=== PATIENT | male | born 1985 | race Hispanic/Latino ===

== ENCOUNTER 2016-11-13 12:49 | Emergency (ER) | payer OTHER ==
[~2016-11-13] VITALS: Ht 160 cm; Wt 62.7 kg
[~2016-11-13 12:49] MED LIST: ACET325T51 PO; CLOT45CR7 EXTERNAL; METF500T4 PO
[2016-11-13 12:51] VITALS: BP 127/88; PULSE 119; RESP 18; O2SAT 100
--- NOTE | 2016-11-13 13:07 | ED.REPORT ---
HPI-Abd Pain M 40 and Over Date of Service Nov 13, 2016 ED Provider: Luis Carlos Andrade MD Patient is a 31 year old male who presents to the ED complaining of lower abdominal pain onset 3 weeks ago. Associated symptoms include dysuria and pelvic pain bilaterally. He denies fever, testicular pain, back pain, or any other symptoms. No hx of kidney stones. No alcohol for months. Nursing Notes Stated Complaint: POSS KIDNEY STONES Chief Complaint: Male Abdominal Pain Nursing Notes Reviewed: Yes Allergies: Coded Allergies: No Known Allergies (Verified Allergy, Unknown, 10/19/16) Scheduled Clotrimazole 1% (Gyne-Lotrimin 7 1%) 45 Gm Cream.appl 45 GM EXTERNAL TID Metformin (Metformin) 500 Mg Tablet 500 MG PO DAILY Scheduled PRN Acetaminophen (Acetaminophen) 325 Mg Tablet 325 MG PO Q4H PRN PRN For Fever Hydrocodone-Acetaminophen 5-325 mg (Hydrocodone-Acetaminophen 5-325 mg) 1 Each Tablet 1-2 TABLET PO Q4H PRN PRN For Pain General Time Seen by MD: 13:07 Chief Complaint Abdominal pain Hx Obtained From: Patient Arrived By: Walk-in Sudden in Onset?: Yes Onset Occurred: More than a week ago... (3 weeks) Recent Healthcare: Recent doctor visit Similar Sx Previous: Yes Risk Factors )( AAA Risk Stratification SmokingNo Hypertension Risk factors reviewed Past Medical History Past Medical History Hx of alcohol abuse Alcoholic liver disease Pancreatitis Reports: Diabetes mellitus Reports: Depression Past Surgical History 01/27/16: Procedure: Exploratory laparotomy, lysis of adhesions, drainage of intra-abdominal abscess, appendectomy, rigid proctoscopy, flexible sigmoidoscopy Surgeon: Neo Daniel M.D. hand wound repair Family History noncontributory Smoking History Current Some Day Smoker Social History Alcohol Use: Denies alcohol use Drug Use: Denies drug use, THC Other Social History: Local resident Ambulatory Status Independent Review of Systems +pelvic pain Constitutional: Denies: Fever Male: Reports Dysuria, Denies Testicular pain Musculoskeletal: Denies: Back pain Complete sys rev & neg: except as marked. Physical Exam Initial Vital Signs Vital Signs (First) Date Time Temp Pulse Resp B/P Pulse Ox O2 Delivery O2 Flow Rate FiO2 11/13/16 12:51 36.2 119 18 127/88 100 Room Air Initial VS: Reviewed Head / Eyes: Atraumatic, Normocephalic Skin: Warm, Dry Neurologic: Alert, Oriented, Nonfocal Psychiatric: Mood/affect normal, Behavior normal, Normal thought content General/Constitutional: Awake, Alert, Well appearing, Well developed Distress / Hydration: Positive: Distress mild Respiratory / Chest: Breath sounds NL, No respiratory distress Cardiovascular: Heart rate NL, Regular rhythm, Heart sounds NL Abdomen: No guarding, BS normoactive Diffuse mild distention and tenderness Back: Inspection NL, Non-tender Interpretation & Diagnostics Lab Results Interpretation Result Diagram: 11/13/16 1325 11/13/16 1325 Test 11/13/16 13:25 11/13/16 13:38 White Blood Count 5.5th/mm3 (3.8-10.1) Red Blood Count 5.16mil/mm3 (4.40-5.80) Hemoglobin 14.5g/dL (13.8-17.2) Hematocrit 41.4% (41.0-50.0) Mean Corpuscular Volume 80.2fL (81-100) Mean Corpuscular Hemoglobin 28.1pg (27.0-35.0) Mean Corpuscular Hemoglobin Concent 35.0% (32.0-37.0) Red Cell Distribution Width 12.6% (12.3-15.4) Platelet Count 190bil/L (150-400) Neutrophils (%) (Auto) 57.1% (40-74) Lymphocytes (%) (Auto) 34.1% (14-46) Monocytes (%) (Auto) 6.6% (4-12) Eosinophils (%) (Auto) 1.6% (0-5) Basophils (%) (Auto) 0.4% (0-3) Prothrombin Time 10.3sec (8.1-12.5) Prothromb Time International Ratio 0.96ratio Sodium Level 131mEq/L (134-144) Potassium Level 3.8mEq/L (3.5-5.2) Chloride Level 94mEq/L (97-108) Carbon Dioxide Level 23mmol/L (18-29) Blood Urea Nitrogen 12mg/dL (6-20) Creatinine 0.66mg/dL (0.76-1.27) Estimat Glomerular Filtration Rate 152mL/min (>59) Glucose Level 394mg/dL (60-99) Calcium Level 9.7mg/dL (8.5-10.1) Magnesium Level 1.7mg/dL (1.6-2.6) Total Bilirubin 0.8mg/dL (0.0-1.2) Aspartate Amino Transf (AST/SGOT) 17U/L (0-50) Alanine Aminotransferase (ALT/SGPT) 20U/L (0-44) Alkaline Phosphatase 137U/L (25-150) Total Protein 8.1g/dL (6.4-8.4) Albumin 4.4g/dL (3.4-5.0) Lipase 20U/L (13-60) Hold Sommers Top Tube Received (Received) Urine Color Yellow (YELLOW) Urine Appearance Clear (CLEAR,HAZY) Urine pH 6.0 (5.0-8.0) Urine Specific [place] 1.015 (1.003-1.035) Urine Protein 30mg/dL (NEG,TRACE) Urine Glucose (UA) 1000mg/dL (NEGATIVE) Urine Ketones Negativemg/dL (NEGATIVE) Urine Occult Blood Trace (NEGATIVE) Urine Nitrite Negative (NEGATIVE) Urine Bilirubin Negative (NEGATIVE) Urine Urobilinogen Normalmg/dL (NORMAL) Urine Leukocyte Esterase Negative (NEGATIVE) Urine RBC 0-2/hpf (0-2) Urine WBC 0-5/hpf (0-5) Urine Epithelial Cells Occasional/hpf (NONE-MOD) Urine Crystals None seen (NONE SEEN) Urine Bacteria Few/hpf (NONE-FEW) Urine Hyaline Casts None/lpf (NONE) Urine Granular Casts None seen (NONE SEEN) Urine Waxy Casts None seen (NONE SEEN) Urine Red Blood Cell Casts None seen (NONE SEEN) Urine White Blood Cell Casts None seen (NONE SEEN) Urine Mucus None seen (None Seen) Urine Trichomonas None seen (NONE SEEN) Urine Yeast None (NONE SEEN) Urinalysis Comment None Urine Culture Reflexed Not indicated Re-Eval/Medical Decision Time of Eval: 15:01 )( Re-Eval Abdomen: BS normoactive Re-Evaluation/Progress Note: Discussed imaging results and plan for discharge with close followup. Patient understands and agrees with plan. All questions addressed at this time. Consultation : Referral / Consult Name: uBbba Torres MD Consulted With: Surgeon Call Returned at: 15:09 Note: Recommends follow-up at [facility] gastroenterology for endoscopic drainage of this large cyst. He says that his office will arrange that follow-up. Counseled Regarding: Diagnosis, Lab results, Need for follow-up, When/why to return to ED Discharge & Departure Primary Impression: Pancreatic pseudocyst Disposition: Home Vital Signs - All Vital Signs Date Time Temp Pulse Resp B/P Pulse Ox O2 Delivery O2 Flow Rate FiO2 11/13/16 15:25 36.6 85 16 120/66 100 Room Air 11/13/16 12:51 36.2 119 18 127/88 100 Room Air )( All Prior VS Reviewed: Yes Condition: Stable Patient Instructions: Acute Abdominal Pain (ED) Additional Instructions: Your abdominal pain is almost certainly caused by the pancreatic pseudocyst evident on the CT scan. This is a sequela of the severe pancreatitis you had last fall. According to the local surgeon, Dr. Chano Torres, endoscopic drainage by gastroenterology is the treatment for a symptomatic pseudocyst like yours. You should expect a phone call from Dr. Torres's clinic today or tomorrow with the details of follow-up at [facility]. If you have not heard from them by noon tomorrow, call back to the ED so we can help with this. Referrals: Gertrudis August DO (PCP) Scribe Attestation Portions of this note were transcribed by Tamra Mcbride. I, Dr. Andrade personally performed the history, physical exam and medical decision-making; I reviewed and confirmed the accuracy of the information in the transcribed note. Signed by: Tamra Mcbride 11/13/16, [id number] copies to: Gertrudis August Kirk H MD Nov 13, 2016 13:07 TAMRA MCBRIDE Nov 13, 2016 13:20
[2016-11-13] MEDS ORDERED: 0.9% Sodium Chloride 1,000 ML IV ONE (13:15)
[2016-11-13] MEDS: Ondansetron 2 mg/mL 2 mL Inj IVPUSH PRN ×2 (13:31→13:32)
[2016-11-13 13:34] LABS: BASOPHILS % (AUTO) 0.4 % (0-3); EOSINOPHILS % (AUTO) 1.6 % (0-5); MONOCYTES % (AUTO) 6.6 % (4-12); Mean Corpuscular Hemoglobin 28.1 pg (27.0-35.0); Mean Corpuscular Volume 80.2 fL (81-100); NEUTROPHILS % (AUTO) 57.1 % (40-74); Platelet Count 190 bil/L (150-400)
[2016-11-13 13:51] LABS: INR 0.96 ratio
[2016-11-13 13:58] LABS: Magnesium 1.7 mg/dL (1.6-2.6)
[2016-11-13 14:23] LABS: APPEARANCE,URINE CLEAR (CLEAR,HAZY); COLOR,URINE YELLOW (YELLOW); OCCULT BLOOD,URINE TRACE (NEGATIVE); UROBILINOGEN,URINE NORMAL (NORMAL)
--- NOTE | 2016-11-13 14:59 | DRSVH ---
PROCEDURE: CT ABDOMEN AND PELVIS WITH CONTRAST (PNL-7102) INDICATIONS: abd pain TECHNIQUE: After the administration of intravenous contrast, 5 mm thick sections acquired from the diaphragm to the symphysis. 5 mm coronal and sagittal reformats were acquired. For radiation dose reduction, the following was used: automated exposure control, adjustment of mA and/or kV according to patient sasha fuller. COMPARISON: [facility], CT, CT ABD PELVIS W CON, 09/10/2016, 16:51. FINDINGS: Image quality: Excellent. ABDOMEN: Lung bases: Lung bases are clear. Heart size is normal. Solid organs: Liver and spleen are normal in size and enhancement. Diffuse fatty infiltration of the liver is noted. Gallbladder is within normal limits. Biliary system is non dilated. Small area of f ocal atrophy is noted in the tail of the pancreas compatible with an area of necrosis which is old in the interval since prior study obtained 09/10/2016. There is a large, multiloculated, peripancreatic walled off fluid collection which is not significantly changed in size and contour compared to prior CT scan obtained 09/10/2016. Lesion continues to have marked mass effect on adjacent structures. No a drenal nodules. Kidneys demonstrate normal size and enhancement, without hydronephrosis. Peritoneum and bowel: Bowel loops demonstrate normal wall thickness and caliber. Scattered diverticu li noted in the sigmoid colon. No free fluid or air. Appendix is absent. Nodes and vessels: No retroperitoneal or mesenteric adenopathy by size criteria. Aorta and inferior vena cava are normal in size. Portal vein and splenic vein demonstrate normal postcontrast enhanceme nt. Superior mesenteric vein as normal enhancement. Miscellaneous: No ventral hernias. PELVIS: Genitourinary: Urinary bladder wall is thickened to 1.2 cm. Miscellaneous: No inguinal hernias or adenopathy. Small fluid collection with enhancing periphery id entified by prior CT scan obtained 09/10/16 is almost completely resolved measuring approximately 1.3 cm diameter currently (3.2 x 2.3 cm previously) cc. Bones: No suspicious bony lesions. No vertebral body compression fractures. IMPRESSION: 1. Multiloculated peripancreatic fluid collection with imaging characteristics most compatible with a pancreatic pseudocyst, however infected fluid collection cannot be completely excluded by imaging al one. 2. Small peripherally enhancing fluid collection in the midline of the lower pelvis superior to the d ome of the urinary bladder is decreased in size measuring approximately 1.2 cm in diameter compatible with resolving abscess. 3. Diffuse urinary bladder wall thickening with nonspecific cystitis. Please correlate with clinical and urinalysis data. 4. Small area of necrosis following the tail of the pancreas. 5. Hepatic steatosis. 6. Colonic diverticulosis. Dictated by: Thao Lawler MD, PhD on 11/13/2016 at 14:57 Approved by: Thao Lawler MD, PhD on 11/13/2016 at 14:57
[2016-11-13] MEDS ORDERED: HYDR-4003 PO (15:13)
[2016-11-13 15:25] VITALS: BP 120/66; PULSE 85; RESP 16; O2SAT 100
== END 2016-11-13 15:27 | disposition home or self-care (01) ==
LOC: SED 12:49
DX: K86.3 Pseudocyst of pancreas (principal); E11.9 Type 2 diabetes mellitus without complications; F17.200 Nicotine dependence, unspecified, uncomplicated; Z79.84 Long term (current) use of oral hypoglycemic drugs
CPT/HCPCS: 36415; 74177; 80053; 81000; 83690; 83735; 85025; 85610; 96361; 96374; 96375; 99285; J2405; J7030; Q9967

== ENCOUNTER 2016-12-06 16:32 | Inpatient (IN) | payer OTHER ==
[~2016-12-06] VITALS: Ht 160 cm; Wt 59.6 kg
[~2016-12-06 16:32] MED LIST changes: +HYDR-4003 PO
[2016-12-06 16:39] VITALS: BP 108/68; PULSE 133; RESP 16; O2SAT 95
[2016-12-06] MEDS ORDERED: 0.9% Sodium Chloride 1,000 ML IV ONE ×2 (16:56→20:40)
[2016-12-06] MEDS ORDERED: Piperacillin-Tazo 3.375 Gm Inj 3.375 GM in Dextrose 5% Minibag Plus 50 ML IV ONE (17:00)
--- NOTE | 2016-12-06 17:20 | ED.REPORT ---
HPI-Abd Pain M Under 40 Date of Service Dec 06, 2016 ED Provider: Luis Carlos Andrade MD A 31 year old male with a history of of alcohol liver disease, pancreatitis, depression and diabetes presents to the ED complaining of a fever that began 3 days ago. Associated symptoms include vomiting, abdominal pain and diarrhea. Patient has seen 11/13 from a pancreatic pseudocyst. He was recently seen at [facility] gastroenterology for endoscopic drainage of his cyst. Patient reports that the drainage "smells sweet". He denies cough. Nursing Notes Stated Complaint: ABDOMINAL PAIN Chief Complaint: FLU/Cold Symptoms Nursing Notes Reviewed: Yes Allergies: Coded Allergies: No Known Allergies (Verified Allergy, Unknown, 10/19/16) Scheduled Clotrimazole 1% (Gyne-Lotrimin 7 1%) 45 Gm Cream.appl 45 GM EXTERNAL TID Metformin (Metformin) 500 Mg Tablet 500 MG PO DAILY Scheduled PRN Acetaminophen (Acetaminophen) 325 Mg Tablet 325 MG PO Q4H PRN PRN For Fever Hydrocodone-Acetaminophen 5-325 mg (Hydrocodone-Acetaminophen 5-325 mg) 1 Each Tablet 1-2 TABLET PO Q4H PRN PRN For Pain General Time Seen by MD: 16:55 Chief Complaint Other (Fever) Hx Obtained From: Patient Arrived By: Walk-in Sudden in Onset?: No Onset Occurred: 3 days ago Symptom Duration: Since onset Progression since Onset: Unchanged Location: : Abdomen lower Quality: Painful Radiation: : Does not radiate Severity: Current: Mild Severity: Maximum: Mild Associated with: Reports: Diarrhea, Fever, Vomiting Pertinent Negative: Pt denies other symptoms Recent Healthcare: Recent doctor visit, Recent hospitalization Past Medical History Past Medical History Hx of alcohol abuse Alcoholic liver disease Pancreatitis Reports: Diabetes mellitus Reports: Depression Past Surgical History 1) 01/27/16: Procedure: Exploratory laparotomy, lysis of adhesions, drainage of intra-abdominal abscess, appendectomy, rigid proctoscopy, flexible sigmoidoscopy Surgeon: Neo Daniel M.D. 2) Endoscopic drainage of his pancreatic psuedocyst at [facility] R hand wound repair Family History noncontributory Smoking History Current Some Day Smoker Social History Alcohol Use: Denies alcohol use Drug Use: Denies drug use, THC Other Social History: Good social support, Local resident Ambulatory Status Independent Review of Systems Constitutional: Reports: Chills, Fever Respiratory: Denies: Non-productive cough, Shortness of breath Cardiovascular: Denies: Chest pain GI: Reports: Abdominal pain, Diarrhea, Nausea, Vomiting Complete sys rev & neg: except as marked. Neurologic: Denies: Change LOC Physical Exam Initial Vital Signs Vital Signs (First) Date Time Temp Pulse Resp B/P Pulse Ox O2 Delivery O2 Flow Rate FiO2 12/06/16 16:39 38.6 133 16 108/68 95 Room Air Initial VS: Reviewed Head / Eyes: Atraumatic, Normocephalic, PERRL Extremities: Vascular intact, Neuro intact, No swelling, No tenderness Skin: Warm, Dry, No cyanosis Neurologic: Alert, Oriented, Nonfocal Psychiatric: Mood/affect normal, Behavior normal, Normal thought content General/Constitutional: Awake, Alert GENERAL: Patient is febrile upin initial examination (38.6 C) Respiratory / Chest: Atraumatic, Breath sounds NL, Breath sounds = bilat Cardiovascular: Regular rhythm, Heart sounds NL Heart Rate / Rhythm: Positive: Tachycardia Abdomen: Atraumatic, Soft ABDOMEN: Drain in place at the patient's rigth flank Back: Atraumatic, Inspection NL Interpretation & Diagnostics Lab Results Interpretation Result Diagram: 12/06/16 1710 12/06/16 1710 Test 12/06/16 17:10 12/06/16 19:20 White Blood Count 7.8th/mm3 (3.8-10.1) Red Blood Count 4.85mil/mm3 (4.40-5.80) Hemoglobin 13.5g/dL (13.8-17.2) Hematocrit 39.3% (41.0-50.0) Mean Corpuscular Volume 81.0fL (81-100) Mean Corpuscular Hemoglobin 27.8pg (27.0-35.0) Mean Corpuscular Hemoglobin Concent 34.4% (32.0-37.0) Red Cell Distribution Width 12.3% (12.3-15.4) Platelet Count 132bil/L (150-400) Neutrophils (%) (Auto) 67.9% (40-74) Lymphocytes (%) (Auto) 14.9% (14-46) Monocytes (%) (Auto) 16.5% (4-12) Eosinophils (%) (Auto) 0.3% (0-5) Basophils (%) (Auto) 0.1% (0-3) Prothrombin Time 11.8sec (8.1-12.5) Prothromb Time International Ratio 1.10ratio Sodium Level 130mEq/L (134-144) Potassium Level 3.5mEq/L (3.5-5.2) Chloride Level 91mEq/L (97-108) Carbon Dioxide Level 22mmol/L (18-29) Blood Urea Nitrogen 10mg/dL (6-20) Creatinine 0.68mg/dL (0.76-1.27) Estimat Glomerular Filtration Rate 147mL/min (>59) Glucose Level 231mg/dL (60-99) Lactic Acid Level 1.6mmol/L (0.4-2.0) Calcium Level 10.0mg/dL (8.5-10.1) Phosphorus Level 4.2mg/dL (2.5-4.9) Magnesium Level 1.3mg/dL (1.6-2.6) Total Bilirubin 1.4mg/dL (0.0-1.2) Aspartate Amino Transf (AST/SGOT) 11U/L (0-50) Alanine Aminotransferase (ALT/SGPT) 16U/L (0-44) Alkaline Phosphatase 106U/L (25-150) Troponin T < 0.010ug/L (0.0-0.011) Total Protein 7.7g/dL (6.4-8.4) Albumin 4.2g/dL (3.4-5.0) Lipase 19U/L (13-60) Urine Color Yellow (YELLOW) Urine Appearance Clear (CLEAR,HAZY) Urine pH 7.0 (5.0-8.0) Urine Specific [place] 1.025 (1.003-1.035) Urine Protein Tracemg/dL (NEG,TRACE) Urine Glucose (UA) 1000mg/dL (NEGATIVE) Urine Ketones 40mg/dL (NEGATIVE) Urine Occult Blood Trace (NEGATIVE) Urine Nitrite Negative (NEGATIVE) Urine Bilirubin Negative (NEGATIVE) Urine Urobilinogen Normalmg/dL (NORMAL) Urine Leukocyte Esterase Trace (NEGATIVE) Urine RBC 0-2/hpf (0-2) Urine WBC 0-5/hpf (0-5) Urine Epithelial Cells None/hpf (NONE-MOD) Urine Crystals None seen (NONE SEEN) Urine Bacteria Few/hpf (NONE-FEW) Urine Hyaline Casts None/lpf (NONE) Urine Granular Casts None seen (NONE SEEN) Urine Waxy Casts None seen (NONE SEEN) Urine Red Blood Cell Casts None seen (NONE SEEN) Urine White Blood Cell Casts None seen (NONE SEEN) Urine Mucus Present (None Seen) Urine Trichomonas None seen (NONE SEEN) Urine Yeast None (NONE SEEN) Urinalysis Comment None Urine Culture Reflexed Indicated CT Abd / Pelvis Interpretation IMPRESSION: 1. Status post placement of percutaneous catheter and transgastric stent in large multiloculated pancreatic pseudocyst. Air locules are scattered throughout the pseudocyst which could be related to catheter stent placement versus infection with gas-forming organism. Recommend sampling of cystic fluid via the percutaneous catheter. 2. Small abscess in the midline of lower pelvis continues to decrease in size measuring approximately 1 cm in diameter in the current study. 3. Interval resolution of diffuse urinary bladder wall thickening. 4. Hepatic steatosis. 5. Colonic diverticulosis without evidence of diverticulitis. 6. Findings telephoned to Dr. Luis Carlos Andrade on 12/06/2016 at 1855 hrs. Dictated by: Thao Lawler MD, PhD on 12/06/2016 at 18:41 Study type: Abdominal CT IV contrast, Abdom CT oral contrast Interpretation / Wet Read by: Interpret - Radiologist Re-Eval/Medical Decision Re-Evaluation/Progress #1: Time of Eval: 17:57 Patient Status: Condition improved Re-Evaluation/Progress Note: Patient is rechecked. He is informed of his lab results and CT results. All current questions are addressed. Re-Evaluation/Progress #2: Time of Eval: 19:46 Patient Status: Condition improved Re-Evaluation/Progress Note: Patient is rechecked. He reports that his pain is still present. Pateint is informed of the consult and he is given the option to admit or discharge. He is requesting to be admitted. Consultation #1: Referral / Consult Name: Wayne Linares MD Consulted With: Surgeon Call Returned at: 18:59 Lead Case Manager: Agrees with eval, Agrees with plan Note: Recommends contacting [facility] Consultation #2: Referral / Consult Name: [facility] Call Returned at: 19:28 Lead Case Manager: Agrees with eval, Agrees with plan Note: Dr. [facility] He recommends either inpatient or outpatient antibiotics after cultures. He said the patient's preference would dictate which venue would be the location of antibiotic administration Consultation #3: Referral / Consult Name: Claudia Potts DO Consulted With: Hospitalist Call Returned at: 20:14 Lead Case Manager: Will see patient, Agrees with eval, Agrees with plan, Accepts admit Counseled Regarding: Diagnosis, Lab results, Need for admission Patient Discharge & Departure Primary Impression: Pancreatic pseudocyst Disposition: ADMITTED TO HOSPITAL Discharge Condition All VS Reviewed: Yes Condition: Stable Referrals: Gertrudis August DO (PCP) Roryibalina Attestation Portions of this note were transcribed by Tony Cuello. I, Dr. Andrade personally performed the history, physical exam and medical decision-making; I reviewed and confirmed the accuracy of the information in the transcribed note. Signed by: Keisha Gonzales, 12/06/162019. copies to: Gertrudis August Kirk H MD Dec 06, 2016 17:20 TONY CUELLO Dec 06, 2016 17:58
[2016-12-06 17:26] LABS: BASOPHILS % (AUTO) 0.1 % (0-3); EOSINOPHILS % (AUTO) 0.3 % (0-5); MONOCYTES % (AUTO) 16.5 % (4-12); Mean Corpuscular Hemoglobin 27.8 pg (27.0-35.0); NEUTROPHILS % (AUTO) 67.9 % (40-74); Platelet Count 132 bil/L (150-400)
[2016-12-06] MEDS: HYDROmorphone 1 mg/mL Inj IVPUSH PRN ×2 (17:27→19:19)
[2016-12-06] MEDS: Ondansetron 2 mg/mL 2 mL Inj IVPUSH PRN ×2 (17:27→19:19)
[2016-12-06 17:52] LABS: INR 1.1 ratio
[2016-12-06 18:05] LABS: Lipase 19 U/L (13-60); Magnesium 1.3 mg/dL (1.6-2.6); Phosphorus 4.2 mg/dL (2.5-4.9)
[2016-12-06 18:12] LABS: TROPONIN T < 0.010 ug/L (0.0-0.011)
--- NOTE | 2016-12-06 18:56 | DRSVH ---
PROCEDURE: CT ABDOMEN AND PELVIS WITH CONTRAST (PNL-7102) INDICATIONS: abd pain, fever, recent surgery TECHNIQUE: After the administration of intravenous contrast, 5 mm thick sections acquired from the diaphragm to the symphysis. 5 mm coronal and sagittal reformats were acquired. For radiation dose reduction, the following was used: automated exposure control, adjustment of mA and/or kV according to patient siz e. COMPARISON: [facility], CT, CT ABD PELVIS W CON, 01/22/2016, 12:29. [facility] al, CT, CT ABD PELVIS W CON, 11/13/2016, 14:37. [facility], CT, CT ABD PELVIS W CON, 07/2016, 16:51. [facility], CT, CT ABD PELVIS W CON, 08/05/2016, 0:00. [facility], CT, CT ABD PELVIS W CON, 02/16/2016, 10:00. [facility], CT, CT ABD PELVIS W CON, , 16:23. FINDINGS: Image quality: Excellent. ABDOMEN: Lung bases: Atelectasis is noted in the lung bases bilaterally. Heart size is normal. Solid organs: Liver and spleen are normal in size and enhancement. Diffuse fatty infiltration the li leesa is noted. Gallbladder is within normal limits. Biliary system is non dilated. Large multiloculat ed pancreatic pseudocyst is redemonstrated. Right flank percutaneous pigtail drain is in placed in t he pancreatic pseudocyst. A stent has been placed in the stomach and adjacent pancreatic pseudocyst. Scattered air locules noted in the pseudocyst which could be related to catheter/stent versus infec tion. Necrosis involving the pancreatic tail is stable compared to the prior examination. Pseudocys t in the pancreatic tail is stable compared to the prior exam. No adrenal nodules. Kidneys demonstr ate normal size and enhancement, without hydronephrosis. Peritoneum and bowel: Bowel loops demonstrate normal wall thickness and caliber. No free fluid or a ir. Scattered diverticuli noted in the colon without evidence of diverticulitis. The appendix is abs ent. Nodes and vessels: No retroperitoneal or mesenteric adenopathy by size criteria. Aorta and inferior vena cava are normal in size. Miscellaneous: No ventral hernias. PELVIS: Genitourinary: Bladder wall thickness is normal. Miscellaneous: No inguinal hernias or adenopathy. Small fluid collection with enhancing periphery in the midline of the pelvis continues to decrease in size measuring approximately 1.0 cm in diameter. Bones: No suspicious bony lesions. No vertebral body compression fractures. IMPRESSION: 1. Status post placement of percutaneous catheter and transgastric stent in large multiloculated you creatic pseudocyst. Air locules are scattered throughout the pseudocyst which could be related to ca theter stent placement versus infection with gas-forming organism. Recommend sampling of cystic flui d via the percutaneous catheter. 2. Small abscess in the midline of lower pelvis continues to decrease in size measuring approximatel y 1 cm in diameter in the current study. 3. Interval resolution of diffuse urinary bladder wall thickening. 4. Hepatic steatosis. 5. Colonic diverticulosis without evidence of diverticulitis. 6. Findings telephoned to Dr. Luis Carlos Andrade on 12/06/2016 at 1855 hrs. Dictated by: Thao Lawler MD, PhD on 12/06/2016 at 18:41 Approved by: Thao Lawler MD, PhD on 12/06/2016 at 18:55
[2016-12-06 19:18] VITALS: BP 100/55; PULSE 109; RESP 13; O2SAT 95
[2016-12-06 19:58] LABS: APPEARANCE,URINE CLEAR (CLEAR,HAZY); COLOR,URINE YELLOW (YELLOW); OCCULT BLOOD,URINE TRACE (NEGATIVE); UROBILINOGEN,URINE NORMAL (NORMAL)
[2016-12-06] MEDS ORDERED: Polyethylene Glycol (PEG) 17 Gm Powder PO PRN (20:20)
[2016-12-06] MEDS ORDERED: Alum-Mag Hydrox-Simeth 30 mL Suspension PO PRN (20:20)
[2016-12-06] MEDS ORDERED: Ondansetron 2 mg/mL 2 mL Inj IVPUSH PRN (20:20)
--- NOTE | 2016-12-06 20:24 | PCM.HPMED ---
Subjective Date of Service Dec 06, 2016 Primary Provider: Admitting Physician: Primary Care Physician: Gertrudis August DO Attending Physician: Admit Status: From the Emergency Department Chief Complaint: abdominal pain History of Present Illness: 31yoM with past medical history of daily alcohol consumption, pancreatitis 2/2 ETOH and hypertriglyceridemia s/p plasma exchange with course complicated by subsequent walled of pancreatic necrosis (WOPN) now s/p drainage admitted with worsening abdominal pain and fever 1 day following drainage procedure at [facility]. Patient states that following pancreatitis in 08/2016 he began having worsening abdominal pain at which time he was seen at [facility] and found to have a large pancreatic pseudocyst / WOPN. Drainage of WOPN was completed at [facility] with what is described as dual modality drainage by patient and ED physician. Records not available on admission. He was discharged on 12/05/2016 and felt improved until the morning of 12/06/2016 at which time he began having worsening 7 /10 persistent abdominal pain with radiation throughout mid abdomen, subjective fevers, and mild rigors. In addition he notes decreased PO intake. As per direction Mr. Remy came to [facility] ED for further evaluation. At this time patient endorses the above complaints in addition to mild headache and nausea. He denies chest pain, dyspnea, lightheadedness, dizziness, changes in vision or hearing, urination, changes in bowel movements. His transcutaneous drain has been putting out dark moe fluid. 100cc taken from bag upon arrival. Vitals on presentation T38.6, RR16, BP 108/68, HR 133, 95% on RA. WBC 7.8 with 16.5% monos, sodium 130, mag 1.3, tbili 1.4. Review of Systems: complete review of system obtained. positive as per HPI otherwise negative. Allergies Coded Allergies: No Known Allergies (Verified Allergy, Unknown, 10/19/16) Home Medications No current medications as per patient. PMH Hx of alcohol abuse Alcoholic liver disease Intraabdominal abscess Torn MCL Peripheral neuropathy a/w trauma Hypertriglyceridemia Pancreatic pseudocyst / WOPN s/p dual modality drainage Surgical History 01/27/16: Procedure: Exploratory laparotomy, lysis of adhesions, drainage of intra-abdominal abscess, appendectomy, rigid proctoscopy, flexible sigmoidoscopy Surgeon: Neo Daniel M.D. 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 Chest & Lungs: clear to auscultation, no wheezes, rhonchi, rales Cardiovascular: Normal S1, Normal S2, No Murmurs/Rubs/Gallops, Tachy/ Regular Rhythm, Other (No JVD, no peripheral edema) Pulses: Radial (present and equal), Dorsalis Pedi (present and equal) Abdomen: Soft, diffusely tender, Non-distended, Normoactive bowel tones. Musculoskeletal: No erythema / edema joints Extremities: no edema, no cyanosis, no clubbing. Skin: No rashes. Warm and dry, no erythematous areas Neurological: Grossly neurologically intact, has generalized weakness, Normal Speech, Sensation Intact Lymphatic: Lymph nodes Cervical and Axillary not palpable. psych: normal affect, good eye contact, questions answered appropriately Lab and Diagnostics Result Diagram: 12/06/16170912/06/161709 X-Rays, CTs and MRIs Patient Name: HOWIE REMY MR#: [id number] Location: [facility] [place] Ordering Phys: Luis Carlos Andrade MD Date of Service: 12/06/161655 PROCEDURE: CT ABDOMEN AND PELVIS WITH CONTRAST ([id number]) INDICATIONS: abd pain, fever, recent surgery TECHNIQUE: After the administration of intravenous contrast, 5 mm thick sections acquired from the diaphragm to the symphysis. 5 mm coronal and sagittal reformats were acquired. For radiation dose reduction, the following was used: automated exposure control, adjustment of mA and/or kV according to patient size. COMPARISON: [facility], CT, CT ABD PELVIS W CON, 01/22/2016, 12:29. [facility], CT, CT ABD PELVIS W CON, 11/13/2016, 14:37. [facility], CT, CT ABD PELVIS W CON, 09/10/2016, 16:51. [facility], CT, CT ABD PELVIS W CON, 08/05/2016, 0:00. [facility], CT , CT ABD PELVIS W CON, 02/16/2016, 10:00. [facility], CT, CT ABD PELVIS W CON, 01/26/2016, 16:23. FINDINGS: Image quality: Excellent. ABDOMEN: Lung bases: Atelectasis is noted in the lung bases bilaterally. Heart size is normal. Solid organs: Liver and spleen are normal in size and enhancement. Diffuse fatty infiltration the liver is noted. Gallbladder is within normal limits. Biliary system is non dilated. Large multiloculated pancreatic pseudocyst is redemonstrated. Right flank percutaneous pigtail drain is in placed in the pancreatic pseudocyst. A stent has been placed in the stomach and adjacent pancreatic pseudocyst. Scattered air locules noted in the pseudocyst which could be related to catheter/stent versus infection. Necrosis involving the pancreatic tail is stable compared to the prior examination. Pseudocyst in the pancreatic tail is stable compared to the prior exam. No adrenal nodules. Kidneys demonstrate normal size and enhancement, without hydronephrosis. Peritoneum and bowel: Bowel loops demonstrate normal wall thickness and caliber. No free fluid or air. Scattered diverticuli noted in the colon without evidence of diverticulitis. The appendix is absent. Nodes and vessels: No retroperitoneal or mesenteric adenopathy by size criteria. Aorta and inferior vena cava are normal in size. Miscellaneous: No ventral hernias. PELVIS: Genitourinary: Bladder wall thickness is normal. Miscellaneous: No inguinal hernias or adenopathy. Small fluid collection with enhancing periphery in the midline of the pelvis continues to decrease in size measuring approximately 1.0 cm in diameter. Bones: No suspicious bony lesions. No vertebral body compression fractures. IMPRESSION: 1. Status post placement of percutaneous catheter and transgastric stent in large multiloculated pancreatic pseudocyst. Air locules are scattered throughout the pseudocyst which could be related to catheter stent placement versus infection with gas-forming organism. Recommend sampling of cystic fluid via the percutaneous catheter. 2. Small abscess in the midline of lower pelvis continues to decrease in size measuring approximately 1 cm in diameter in the current study. 3. Interval resolution of diffuse urinary bladder wall thickening. 4. Hepatic steatosis. 5. Colonic diverticulosis without evidence of diverticulitis. 6. Findings telephoned to Dr. Luis Carlos Andrade on 12/06/2016 at 1855 hrs. Dictated by: Thao Lawler MD, PhD on 12/06/2016 at 18:41 Approved by: Thao Lawler MD, PhD on 12/06/2016 at 18:55 Assessment & Plan 31yoM with past medical history of daily alcohol consumption (last drink 2015), pancreatitis 2/2 ETOH and hypertriglyceridemia s/p plasma exchange with course complicated by walled of pancreatic necrosis (WOPN) now s/p drainage admitted with worsening abdominal pain and fever 1 day following drainage procedure at [facility]. SIRS, acute, POA -temp >38, HR >90 -most likely associated with pancreatic pseudocyst drain placement and recent hospitalization however continued workup at this time for infection -treatment as below Pancreatic pseudocyst, chronic, POA -recent endoscopic / surgical drain placement at 12/2016, discharge 1 day prior to admission -ED discussed case with Dr. Salmon (GI) at [facility], may transfer if patient clinically worsens -will continue piperacillin / tazobactam at this time -follow up drain cultures and blood cultures -AM team to contact ID for consult -records have been requested, pending Abdominal pain, acute, POA -seconary to DMD procedure at -lipase WNL Thrombocytopenia, acute, POA -mild thrombocytopenia noted on admit labs -found only one time previously on admission -continue to monitor especially with current abx and DVT prophylaxis Monocytosis, acute, POA -new monocytosis noted on admit labs -nonspecific finding in the setting of normal WBC -continue to monitor Elevated glucose, acute, POA -no history of diabetes however pancreatic pathology -low correction SSI ordered -HgbA1c pending Hypomagnesemia, acute, POA -monitor -replete PRN Elevated bilirubin, acute, POA -no documented history of isolated elevation of bilirubin -continue to monitor -may consider further workup as outpatient Hyponatremia, acute, POA -mild hyponatremia on admission at 130 -much lower during previous admission -potentially a/w hypovolemia given presentation -continue to monitor History of ETOH abuse, chronic -extended history of ETOH dependence, total 2.5 years sober, h/o DTs no withdrawal seizure -last drink 08/05/2016 Pain Evaluation: Adequate Pain Control GI Prophylaxis: Proton Pump Inhibitor VTE Prophylaxis: Sub-Q Heparin (Unfractionated) Resuscitation Status: CPR: Attempt Resuscitation Claudia Potts DO Dec 06, 2016 20:24
--- NOTE | 2016-12-06 20:30 | NUR ---
Admission note Admission assessment and screening completed. Pt denies taking any meds at this time including Metformin.
[2016-12-06] MEDS ORDERED: Glucose 40% Oral Gel 15 Gm Tube PO PRN (20:35)
[2016-12-06] MEDS ORDERED: Magnesium Sulf 2 Gm/50mL Water 2 GM in IV Premix 1 EACH IV ONE (20:40)
[2016-12-06 20:44] VITALS: BP 100/55; PULSE 109; RESP 14; O2SAT 96
[2016-12-06 21:07] VITALS: BP 105/64; PULSE 91; RESP 18; O2SAT 96
--- NOTE | 2016-12-06 21:39 | NUR ---
med rec patient reports "i dont take any medications."
[2016-12-06] MEDS ORDERED: HYDROmorphone 1 mg/mL Inj IVPUSH PRN (21:55)
[2016-12-06] MEDS: 0.9% Sodium Chloride 1,000 ML IV SCH (22:00)
--- NOTE | 2016-12-06 22:03 | NUR ---
pain patient complains of pain to abdomen. rates 7. requests pain medication notified Dr Delroy Potts to room. / bedside. await orders.
[2016-12-06] MEDS ORDERED: 0.9% Sodium Chloride 100 ML ONE (23:56)
[2016-12-07] VITALS (9 sets, daily range): BP systolic 99–107; BP diastolic 53–73; PULSE 79–117; RESP 18–22; O2SAT 95–98
[2016-12-07] MEDS: Insulin LISPRO 300 Unit/3 mL Inj SUBQ SCH ×5 (00:04→20:53)
[2016-12-07] MEDS: Heparin 5,000 Unit/mL Inj SUBQ SCH ×3 (00:04→17:30)
[2016-12-07] MEDS: Piperacillin-Tazo 3.375 Gm Inj 3.375 GM in Dextrose 5% Minibag Plus 50 ML IV SCH ×3 (00:05→17:30)
[2016-12-07] MEDS: HYDROmorphone 1 mg/mL Inj IVPUSH PRN ×10 (01:44→23:09)
--- NOTE | 2016-12-07 03:15 | NUR ---
Admit to 1001 Arrived from ED at 2054, able to transfer self safely to BR and bed. Alert and fully oriented. Patent transcutaneous drain to R abdomen, dark brown/green fluid. Pain reported 8/10; adequately controlled with IV Dilaudid but only for short amount of time. Md notified, pain med interval shortened; pt reports adequate control of pain; monitoring resp regularly. Tolerating clear liquid diet, IV fluids infusing. Oriented to hospital routines, plan of care, hourly rounding ongoing.
[2016-12-07 07:16] LABS: BASOPHILS % (AUTO) 0.2 % (0-3); EOSINOPHILS % (AUTO) 0.2 % (0-5); MONOCYTES % (AUTO) 21.4 % (4-12); Mean Corpuscular Hemoglobin 27.9 pg (27.0-35.0); Mean Corpuscular Volume 81.6 fL (81-100); NEUTROPHILS % (AUTO) 56.4 % (40-74); Platelet Count 119 bil/L (150-400)
[2016-12-07] MEDS: 0.9% Sodium Chloride 1,000 ML IV SCH ×3 (09:12→20:53)
--- NOTE | 2016-12-07 09:17 | PCM.PNMED ---
Subjective Date of Service Dec 07, 2016 Subjective - Pt seen and examined this morning. - In mild distress due to pain. States that he is feeling better than yesterday. - Afebrile last night. Exam Vital Signs Vital Sign - Last Date Time Temp Pulse Resp B/P Pulse Ox O2 Delivery O2 Flow Rate FiO2 12/07/16 06:08 85 12/07/16 05:52 36.6 18 104/53 97 Room Air Intake and Output 12/06/16 12/06/16 12/07/16 Cumulative From/Thru 15:00 23:00 07:00 12/06/16 16:39 - 12/07/16 05:52 Intake Total 2000 ml 1525 ml 3525 ml Output Total 1220 ml 1220 ml Balance 2000 ml 305 ml 2305 ml Intake Oral 840 ml 840 ml IV Total 2000 ml 685 ml 2685 ml Output Urine Total 1150 ml 1150 ml Drainage Total 70 ml 70 ml # Voids 4 4 # Bowel Movements 0 0 Exam General: A&Ox3, cooperative, Mild distress Eyes: PERRLA, Scleral Anicteric Mouth: Mucous Membranes dry/[place] Neck: Supple, no Thyromegaly, trachea central. Chest & Lungs: clear to auscultation, no wheezes, rhonchi, rales Cardiovascular: Normal S1, Normal S2, No Murmurs/Rubs/Gallops, Tachy/ Regular Rhythm, Other (No JVD, no peripheral edema) Pulses: Radial (present and equal), Dorsalis Pedi (present and equal) Abdomen: Soft, mild RLQ tenderness, Non-distended, Normoactive bowel tones. Musculoskeletal: No erythema / edema joints Extremities: no edema, no cyanosis, no clubbing. Skin: No rashes. Warm and dry, no erythematous areas Neurological: Grossly neurologically intact, has generalized weakness, Normal Speech, Sensation Intact Lymphatic: Lymph nodes Cervical and Axillary not palpable. psych: normal affect, good eye contact, questions answered appropriately IVs and Medications Medications Reviewed: Medications were reviewed in detail Lab and Diagnostics Result Diagram: 12/07/16 0710 12/07/16 0710 X-Rays, CTs and MRIs Patient Name: HOWIE REMY MR#: [id number] Location: [facility] [place] Ordering Phys: Luis Carlos Andrade MD Date of Service: 12/06/16 8636 PROCEDURE: CT ABDOMEN AND PELVIS WITH CONTRAST ([id number]) INDICATIONS: abd pain, fever, recent surgery TECHNIQUE: After the administration of intravenous contrast, 5 mm thick sections acquired from the diaphragm to the symphysis. 5 mm coronal and sagittal reformats were acquired. For radiation dose reduction, the following was used: automated exposure control, adjustment of mA and/or kV according to patient size. COMPARISON: [facility], CT, CT ABD PELVIS W CON, 01/22/2016, 12:29. [facility], CT, CT ABD PELVIS W CON, 11/13/2016, 14:37. [facility], CT, CT ABD PELVIS W CON, 09/10/2016, 16:51. [facility], CT, CT ABD PELVIS W CON, 08/05/2016, 0:00. [facility], CT , CT ABD PELVIS W CON, 02/16/2016, 10:00. [facility], CT, CT ABD PELVIS W CON, 01/26/2016, 16:23. FINDINGS: Image quality: Excellent. ABDOMEN: Lung bases: Atelectasis is noted in the lung bases bilaterally. Heart size is normal. Solid organs: Liver and spleen are normal in size and enhancement. Diffuse fatty infiltration the liver is noted. Gallbladder is within normal limits. Biliary system is non dilated. Large multiloculated pancreatic pseudocyst is redemonstrated. Right flank percutaneous pigtail drain is in placed in the pancreatic pseudocyst. A stent has been placed in the stomach and adjacent pancreatic pseudocyst. Scattered air locules noted in the pseudocyst which could be related to catheter/stent versus infection. Necrosis involving the pancreatic tail is stable compared to the prior examination. Pseudocyst in the pancreatic tail is stable compared to the prior exam. No adrenal nodules. Kidneys demonstrate normal size and enhancement, without hydronephrosis. Peritoneum and bowel: Bowel loops demonstrate normal wall thickness and caliber. No free fluid or air. Scattered diverticuli noted in the colon without evidence of diverticulitis. The appendix is absent. Nodes and vessels: No retroperitoneal or mesenteric adenopathy by size criteria. Aorta and inferior vena cava are normal in size. Miscellaneous: No ventral hernias. PELVIS: Genitourinary: Bladder wall thickness is normal. Miscellaneous: No inguinal hernias or adenopathy. Small fluid collection with enhancing periphery in the midline of the pelvis continues to decrease in size measuring approximately 1.0 cm in diameter. Bones: No suspicious bony lesions. No vertebral body compression fractures. IMPRESSION: 1. Status post placement of percutaneous catheter and transgastric stent in large multiloculated pancreatic pseudocyst. Air locules are scattered throughout the pseudocyst which could be related to catheter stent placement versus infection with gas-forming organism. Recommend sampling of cystic fluid via the percutaneous catheter. 2. Small abscess in the midline of lower pelvis continues to decrease in size measuring approximately 1 cm in diameter in the current study. 3. Interval resolution of diffuse urinary bladder wall thickening. 4. Hepatic steatosis. 5. Colonic diverticulosis without evidence of diverticulitis. 6. Findings telephoned to Dr. Luis Carlos Andrade on 12/06/2016 at 1855 hrs. Dictated by: Thao Lawler MD, PhD on 12/06/2016 at 18:41 Approved by: Thao Lawler MD, PhD on 12/06/2016 at 18:55 Assessment & Plan 31 year old male with medical history of alcohol abuse (last drink 08/05/2016), pancreatitis 2/2 ETOH and hypertriglyceridemia s/p plasma exchange with course complicated by walled of pancreatic necrosis (WOPN) now s/p drainage admitted with worsening abdominal pain and fever 1 day following drainage procedure at [facility]. SIRS, acute, POA - temp >38, HR >90 - most likely associated with pancreatic pseudocyst drain placement and recent hospitalization however continued workup at this time for infection - treatment as below Pancreatic pseudocyst, chronic, POA - recent endoscopic / surgical drain placement at 12/2016, discharge 1 day prior to admission - ED discussed case with Dr. Salmon (GI) at [facility], may transfer if patient clinically worsens - will continue piperacillin / tazobactam at this time - ID consult for antibiotics management - follow up drain cultures and blood cultures - records have been requested, pending Abdominal pain, acute, POA - seconary to DMD procedure at - lipase WNL Thrombocytopenia, acute, POA - mild thrombocytopenia noted on admit labs - Likely due to chronic alcohol abuse Elevated glucose, acute, POA - no history of diabetes however pancreatic pathology - low correction SSI ordered - HgbA1c pending Hypomagnesemia, acute, POA - monitor - replete PRN Elevated bilirubin, acute, POA - no documented history of isolated elevation of bilirubin - trending down 1.2 <--- 1.4 Hyponatremia, acute, POA - mild hyponatremia on admission at 130 - much lower during previous admission - potentially a/w hypovolemia given presentation - Now improving - continue to monitor History of ETOH abuse, chronic - extended history of ETOH dependence, total 2.5 years sober, h/o DTs no withdrawal seizure - last drink 08/05/2016 GI Prophylaxis: Proton Pump Inhibitor VTE Prophylaxis: Sub-Q Heparin (Unfractionated) VTE Mechanical Devices: Intermittant Pneumatic CD Resuscitation Status: CPR: Attempt Resuscitation Satya Mcmahon MD Dec 07, 2016 09:17
--- NOTE | 2016-12-07 18:01 | NUR ---
pain/positive pancreatic fluid culture Call from lab today with positive culture from pancreatic fluid, gram variable rods, both bottles. notified and is aware. Pt c/o 7-8/10 pain in R abdomen today, medicated with prn IV dilaudid 1mg q2hrs per prn orders. Pt reports pain down to more tolerable 5-6/10. This evening pt was given dose if IV dilaudid and reports pain not improved after 1 hour, still 7/10 and states pain "now coming in sharp waves where as before it was more constant". VSS. MD notified and order to give one time dose of extra 1mg IV dilaudid x1 now, (given per orders), then resume q2h prn. Will continue to monitor for pain. Call light in reach. Frequent rounding. Care continues.
[2016-12-07] MEDS ORDERED: HYDROmorphone 1 mg/mL Inj IVPUSH ONE (19:20)
[2016-12-08] VITALS (9 sets, daily range): BP systolic 98–108; BP diastolic 59–71; PULSE 58–118; RESP 16–20; O2SAT 95–99
[2016-12-08] MEDS: Piperacillin-Tazo 3.375 Gm Inj 3.375 GM in Dextrose 5% Minibag Plus 50 ML IV SCH ×3 (01:26→17:20)
[2016-12-08] MEDS: Heparin 5,000 Unit/mL Inj SUBQ SCH ×3 (01:26→17:20)
[2016-12-08] MEDS: HYDROmorphone 1 mg/mL Inj IVPUSH PRN ×5 (01:27→10:21)
--- NOTE | 2016-12-08 03:48 | NUR ---
Pain Pain just adequately controlled with Q2 hour prn IV Dilaudid; pt reports that medication does not last as long as it was. Tylenol providing additional pain relief. Pt attempted a walk in hallway to see if that would help, reports instead that it increased pain and was fatiguing. Hourly rounding ongoing.
[2016-12-08] MEDS: 0.9% Sodium Chloride 1,000 ML IV SCH ×2 (05:59→18:03)
[2016-12-08] MEDS: Insulin LISPRO 300 Unit/3 mL Inj SUBQ SCH ×4 (08:00→22:00)
[2016-12-08] MEDS: Dextrose 5% 500 ML IV SCH ×2 (11:58→13:14)
[2016-12-08] MEDS ORDERED: Ondansetron 2 mg/mL 2 mL Inj IVPUSH PRN (12:00)
[2016-12-08] MEDS ORDERED: MetoCLOpramide 5 mg/mL 2 mL Inj IVPUSH PRN (12:00)
[2016-12-08] MEDS: Morphine PCA 1 mg/mL 30 mL Inj IV PRN ×2 (12:27→19:27)
[2016-12-08] MEDS: Micafungin Inj 150 MG in 0.9% Sodium Chloride 100 ML IV SCH (13:13)
--- NOTE | 2016-12-08 14:35 | PCM.PNMED ---
Subjective Date of Service Dec 08, 2016 Subjective Patient feeling like he may be gaining tolerance to hydromorphone, having more pain in abdomen. Negative chest pain, negative dyspnea negative nausea or vomiting Exam Vital Signs Vital Sign - Last Date Time Temp Pulse Resp B/P Pulse Ox O2 Delivery O2 Flow Rate FiO2 12/08/16 10:55 91 12/08/16 09:53 36.7 18 108/71 99 Room Air Intake and Output 12/07/16 12/07/16 12/08/16 Cumulative From/Thru 15:00 23:00 07:00 12/06/16 16:39 - 12/08/16 05:58 Intake Total 2078 ml 2728 ml 8331 ml Output Total 1970 ml 1650 ml 4840 ml Balance 108 ml 1078 ml 3491 ml Intake Oral 810 ml 1487 ml 3137 ml IV Total 1268 ml 1241 ml 5194 ml Output Urine Total 1800 ml 1650 ml 4600 ml Drainage Total 170 ml 240 ml # Voids 5 9 # Bowel Movements 0 0 Exam Gen.- A+ O 3 no apparent distress. Eyes- open conjunctiva clear, pupils equal nonicteric Mouth- oral mucosa moist, no exudate ENT- ears normal, nose normal Neck- supple/trach midline CVS- regular normal rate Lungs-normal rate nonlabored GI-flat, drain extruding serous sanguinous drainage Musc- moving 4 no obvious deformity Neuro- cranial nerves II through XII intact to gross examination, nonfocal Skin- warm and dry, no rashes/lesions/wounds noted, large number of tattoos sleeves both arms Psych- pleasant and appropriate, Lab and Diagnostics Result Diagram: 12/07/16 0710 12/07/16 0710 X-Rays, CTs and MRIs Patient Name: HOWIE REMY MR#: [id number] Location: [facility] [place] Ordering Phys: Luis Carlos Andrade MD Date of Service: 12/06/161655 PROCEDURE: CT ABDOMEN AND PELVIS WITH CONTRAST ([id number]) INDICATIONS: abd pain, fever, recent surgery TECHNIQUE: After the administration of intravenous contrast, 5 mm thick sections acquired from the diaphragm to the symphysis. 5 mm coronal and sagittal reformats were acquired. For radiation dose reduction, the following was used: automated exposure control, adjustment of mA and/or kV according to patient size. COMPARISON: [facility], CT, CT ABD PELVIS W CON, 01/22/2016, 12:29. [facility], CT, CT ABD PELVIS W CON, 11/13/2016, 14:37. [facility], CT, CT ABD PELVIS W CON, 09/10/2016, 16:51. [facility], CT, CT ABD PELVIS W CON, 08/05/2016, 0:00. [facility], CT , CT ABD PELVIS W CON, 02/16/2016, 10:00. [facility], CT, CT ABD PELVIS W CON, 01/26/2016, 16:23. FINDINGS: Image quality: Excellent. ABDOMEN: Lung bases: Atelectasis is noted in the lung bases bilaterally. Heart size is normal. Solid organs: Liver and spleen are normal in size and enhancement. Diffuse fatty infiltration the liver is noted. Gallbladder is within normal limits. Biliary system is non dilated. Large multiloculated pancreatic pseudocyst is redemonstrated. Right flank percutaneous pigtail drain is in placed in the pancreatic pseudocyst. A stent has been placed in the stomach and adjacent pancreatic pseudocyst. Scattered air locules noted in the pseudocyst which could be related to catheter/stent versus infection. Necrosis involving the pancreatic tail is stable compared to the prior examination. Pseudocyst in the pancreatic tail is stable compared to the prior exam. No adrenal nodules. Kidneys demonstrate normal size and enhancement, without hydronephrosis. Peritoneum and bowel: Bowel loops demonstrate normal wall thickness and caliber. No free fluid or air. Scattered diverticuli noted in the colon without evidence of diverticulitis. The appendix is absent. Nodes and vessels: No retroperitoneal or mesenteric adenopathy by size criteria. Aorta and inferior vena cava are normal in size. Miscellaneous: No ventral hernias. PELVIS: Genitourinary: Bladder wall thickness is normal. Miscellaneous: No inguinal hernias or adenopathy. Small fluid collection with enhancing periphery in the midline of the pelvis continues to decrease in size measuring approximately 1.0 cm in diameter. Bones: No suspicious bony lesions. No vertebral body compression fractures. IMPRESSION: 1. Status post placement of percutaneous catheter and transgastric stent in large multiloculated pancreatic pseudocyst. Air locules are scattered throughout the pseudocyst which could be related to catheter stent placement versus infection with gas-forming organism. Recommend sampling of cystic fluid via the percutaneous catheter. 2. Small abscess in the midline of lower pelvis continues to decrease in size measuring approximately 1 cm in diameter in the current study. 3. Interval resolution of diffuse urinary bladder wall thickening. 4. Hepatic steatosis. 5. Colonic diverticulosis without evidence of diverticulitis. 6. Findings telephoned to Dr. Luis Carlos Andrade on 12/06/2016 at 1855 hrs. Dictated by: Thao Lawler MD, PhD on 12/06/2016 at 18:41 Approved by: Thao Lawler MD, PhD on 12/06/2016 at 18:55 Assessment & Plan 31 year old male admit 12/06 presumed infected pseudocyst. Hx pancreatitis 2/ ETOH/hypertriglyceridemia s/p plasma exch w/ walled off pancreatic necrosis ( WOPN) s/p drainage admit 1d post w/ worsening abd pain/fever 1 day following drainage procedure at [facility]. SIRS, acute, resolved as of 12/08 - temp >38, HR >90, afebrile quadrant 24 hours - most likely associated with pancreatic pseudocyst drain placement and recent hospitalization however continued workup at this time for infection - treatment as below Pancreatic pseudocyst, chronic, POA - recent endoscopic / surgical drain placement at 12/2016, discharge 1 day prior to admission - ED discussed case with Dr. 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 Likely due to chronic alcohol abuse Elevated glucose, acute, POA, BS<200 12/07-12/08 no axn 12/08 - no history of diabetes however pancreatic pathology - low correction SSI ordered - HgbA1c pending Hypomagnesemia, acute, POA- Mg++ 1.3 2/, 1.6 2 - monitor - replete PRN Elevated bilirubin, acute, POA- T rishabh 1.2 2/5 resolved - no documented history of isolated elevation of bilirubin - trending down 1.2 <--- 1.4 Hyponatremia, acute, POA- mild 130 2/, 133 2/5 - continue to monitor History of ETOH abuse, chronic - extended history of ETOH dependence, total 2.5 years sober, h/o DTs no withdrawal seizure - last drink 08/05/2016 Prophylaxis- DVT patient on heparin and SCDs, GI patient on PPI Disposition- from home full code Medically complex patient in high risk of complications GI Prophylaxis: Proton Pump Inhibitor VTE Prophylaxis: Sub-Q Heparin (Unfractionated) VTE Mechanical Devices: Intermittant Pneumatic CD Resuscitation Status: CPR: Attempt Resuscitation Elliot Abdi MD Dec 08, 2016 14:35
--- NOTE | 2016-12-08 16:55 | CONS ---
[address] [address] CONSULTATION REPORT PATIENT: HOWIE REMY : 1985 MR#: [id number] ADMIT: 12/06/2016 JOB ID: [id number] DATE OF SERVICE: 12/08/[address] Mcmahon for this timely consult. REASON FOR CONSULT: Infected pancreatic pseudocyst. HISTORY OF PRESENT ILLNESS: The patient is a 31-year-old gentleman who is known to me from an admission last January when he came in with an interloop abdominal abscess that was eventually treated surgically as well as with a prolonged course of antibiotics. We had been very suspicious that he had either Crohn's or ulcerative colitis, but the studies done during that admission did not confirm that diagnosis. There was a history obtained at that time of alcoholism with many alcohol-related problems including DUIs, but the patient told us at that time he had stopped drinking. Subsequent to that admission, the patient had what he reports as a month long hospital stay at [place] in the fall of 2015 with severe pancreatitis. He reports that there were many complications, but he eventually got through that and was discharged from [facility]. He then had a CT scan done here in early November 2016 because of abdominal pain and fullness. He was found to have a massive walled-off pancreatic necrosis at that time, and was then sent to [facility] after an ED visit during the second week of November after being seen in our ED and having a CT scan which showed the massive peripancreatic pseudocyst and walled of pancreatic necrosis. Last week, the patient was seen at [facility] and he had both endoscopic and percutaneous drainage of this large walled-off pancreatic necrotic area. A drain was placed apparently from the pancreas to the stomach, by his report, as well as a percutaneous drain which emerges from the right side of his abdomen. He reports that these procedures seemed to go well, but in the days after these procedures when he was back home here in [facility], he developed "flu-like symptoms" which included fever, chills, malaise, myalgias, arthralgias, and increasing abdominal pain. Because of these symptoms, the patient returned to the emergency department on the and was readmitted. He tells me that he has no vomiting or diarrhea in association with these symptoms that started on or about December 03 but, interestingly in the ED, he did complain of both vomiting and diarrhea as well as the abdominal pain and flu-like symptoms. He notes that since the drain was placed last week at [facility] on about December 03 there has been thick, brown drainage out of the percutaneous drain and that he has actually dropped a couple of pounds which he believes is secondary strictly to the fluid that is draining out of his walled-off pancreatic necrosis. A CT scan done on the in the emergency department at the time of his readmission here, showed the presence of the percutaneous catheter and a transgastric stent which was scattered throughout the pseudocyst which was thought to be related to the stent. Fluid was collected from the external drainage and the patient was admitted to the hospital. Over the weekend, I discussed the case with Dr. Mcmahon and we discussed appropriate antibiotic management awaiting cultures. The patient says that since admission his abdominal pain, fevers and chills have started to diminish though he still feels very tired with myalgias and arthralgias. PAST MEDICAL HISTORY: 1. Alcoholism. 2. Pancreatitis with formation of large area of walled-off pancreatic necrosis requiring drainage. 3. History of intra-abdominal abscess x2. 4. Alcoholic liver disease with fatty liver seen on imaging. 5. Hyperlipidemia. SOCIAL HISTORY: The patient reports he has not been drinking since August. Prior to that, he was a heavy alcohol consumer and suffered numerous complications including his pancreatitis and DUIs. 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 He is a cigarette smoker. He used to smoke marijuana but has not for many months. FAMILY HISTORY: Unknown as he is adopted and has no idea. REVIEW OF SYSTEMS: Was done in its entirety. The patient states that he has headache whenever he is febrile. He notes he has had intermittent fevers and chills the past two or three days, but they seem to be subsiding. He has diffuse weakness, myalgias and arthralgias which seem to be improving since he has been admitted. He denies any visual change, trouble swallowing or sore throat. No stiff neck. No cough, shortness of breath or chest pain. He notes he has diffuse abdominal pain, which is relatively constant but, if anything, has gotten better since the drain was placed. He denies nausea, vomiting or diarrhea to me though he did note in the ED on the 4th that he actually had these things. He states he has fairly constant dysuria which has been a problem for some weeks now. This is especially severe at the end of urination but actually occurs throughout the urinating process. No urgency or frequency. No other issues with his penis or scrotum. The extremities are notable for the myalgias and arthralgias but no actual swelling of the joints. No limitation of motion to walking. He denies any weakness or loss of function anywhere in the body. Denies any history of confusion. PHYSICAL EXAMINATION: Reveals an afebrile gentleman, temperature 36.7, pulse 91, respiratory rate 18, blood pressure 108/71, saturating 99% on room air. He has multiple tattoos but no other skin rash is noted. Examination of mental status reveals it to be completely clear. Head without trauma. Eyes without scleral icterus or conjunctivitis. Oral cavity without thrush or hairy leukoplakia. Neck is supple. Lungs clear posteriorly. Cardiac tones: Regular rate and rhythm with an occasional "dropped beat." No cardiac rub or murmur is heard. Abdomen with a large mass which is difficult to define but seems to feel much of his upper abdomen. It is impossible to tell whether he has a big liver or spleen because of the nature of this huge fluid collection apparently. A drain is present in the right side of the abdomen which is draining a thick, brownish fluid. The lower abdomen is benign. No suprapubic fullness or tenderness. He does not have a De [place] catheter. The extremities are without evidence of synovitis. There is no peripheral edema. No cellulitis. Motor functions are intact with excellent symmetrical strength. No other abnormalities. LABS: Include a white count of 4800. Diff shows a monocytosis of 21%, otherwise negative. Creatinine is 0.44. His LFTs are normal. Albumin 3.5. Lipase is 19. CRP is 15, down from 23,. Urinalysis with no pyuria. Micro from this admission includes negative blood cultures in the ED. Urine culture is growing greater than 100,000 yeast. Also notable is that the peritoneal fluid which was sent to the lab is growing yeast as well as a small amount of Corynebacterium bacteria and a coagulase negative Staph. I have discussed these cultures in detail with the micro lab and their workup. IMAGING: The imaging is notable primarily for the CT scans, one in November which showed the large peripancreatic associated fluid collection. More recently, we have the CT scan which shows placement of a percutaneous catheter and transgastric stent as compared to the one done in November, of course. Large multiloculated pancreatic pseudocyst is seen with air throughout. A small abscess is also seen in the midline of the lower pelvis which is smaller than when it was measured back in November, and his urinary bladder wall thickening seen previously in November has resolved. IMPRESSION: This is an unfortunate young man who has been admitted now basically four times to three different hospitals over the last 12 months. He started off here with an interloop abscess which was drained back in January 2016. He subsequently continued heavy drinking and developed massive and severe pancreatitis that led to a very long admission at [facility]. He followed up here in November with abdominal pain and fullness and his CT showed a large multiloculated walled off area of pancreatic necrosis for which he was sent to [facility]. He was admitted briefly last week to [facility] for placement of a transgastric drainage stent as well as an external drainage tube into the abscess itself. Shortly after the placement of that drain, he developed fevers, chills, and flu-like symptoms which strongly suggest that there is infection of the walled-off pancreatic necrosis. Whether this infection was there prior to the placement of this drain or arose from the placement is unclear. The microbiologic etiology of this also remains unclear as we are growing a couple of organisms, the Corynebacterium and the coag-negative staph, which are likely contaminants. Of more concern is the yeast which is growing both from the urine and from the pancreatic pseudocyst. RECOMMENDATIONS: 1. Will continue with the Zosyn he is currently receiving. 2. I would add micafungin to that for treatment of yeast which I think could be a very significant pathogen here. 3. Will ask the micro lab to fully work up that yeast. 4. If possible will switch to fluconazole. 5. I will continue to closely follow this complex patient with you with hopes of streamlining his antibiotic therapy significantly in the coming days.
--- NOTE | 2016-12-08 19:01 | NUR ---
Pain- Patient stated that he did not think the Dilaudid was working any more for his pain. MD notified. Orders received. 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 Informed patient of NPO status. Denies nausea.
[2016-12-09] VITALS (15 sets, daily range): BP systolic 92–161; BP diastolic 54–75; PULSE 80–117; RESP 16–18; O2SAT 94–99
[2016-12-09] MEDS: Heparin 5,000 Unit/mL Inj SUBQ SCH ×3 (00:43→16:30)
[2016-12-09] MEDS: Piperacillin-Tazo 3.375 Gm Inj 3.375 GM in Dextrose 5% Minibag Plus 50 ML IV SCH ×3 (00:43→16:53)
[2016-12-09] MEDS: 0.9% Sodium Chloride 1,000 ML IV SCH ×2 (04:17→16:53)
[2016-12-09] MEDS: Morphine PCA 1 mg/mL 30 mL Inj IV PRN ×3 (05:31→22:25)
--- NOTE | 2016-12-09 05:35 | NUR ---
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 Patient used call light for needs and remained pleasant and polite throughout shift. DRILLING RIG OPERATOR syringe was changed twice. No drainage from abdominal drain. VSS. Call light within reach. Care continues.
[2016-12-09] MEDS: Insulin LISPRO 300 Unit/3 mL Inj SUBQ SCH ×4 (08:00→22:00)
[2016-12-09] MEDS: Micafungin Inj 150 MG in 0.9% Sodium Chloride 100 ML IV SCH (08:56)
--- NOTE | 2016-12-09 12:13 | PCM.PNMED ---
Subjective Date of Service Dec 09, 2016 Subjective Abdominal pain down to a manageable 5 with the REGULATORY CONSULTANT today. He states he is hungry, no chest pain, no dyspnea, no nausea or vomiting Exam Vital Signs Vital Sign - Last Date Time Temp Pulse Resp B/P Pulse Ox O2 Delivery O2 Flow Rate FiO2 12/09/16 11:44 16 95 12/09/16 11:20 37.1 108 99/54 Room Air Intake and Output 12/08/16 12/08/16 12/09/16 Cumulative From/Thru 15:00 23:00 07:00 12/06/16 16:39 - 12/09/16 05:54 Intake Total 2918 ml 1268 ml 75884 ml Output Total 1275 ml 2360 ml 8475 ml Balance 1643 ml -1092 ml 4042 ml Intake Oral 1780 ml 0 ml 4917 ml IV Total 1138 ml 1268 ml 7600 ml Output Urine Total 1275 ml 2350 ml 8225 ml Drainage Total 10 ml 250 ml # Voids 4 13 # Bowel Movements 0 0 Exam Gen.- A+ O 3 no apparent distress. Eyes- open conjunctiva clear, pupils equal nonicteric Mouth- oral mucosa moist, no exudate ENT- ears normal, nose normal Neck- supple/trach midline CVS- regular normal rate Lungs-normal rate nonlabored GI-flat, drain extruding serous sanguinous drainage Musc- moving 4 no obvious deformity Neuro- cranial nerves II through XII intact to gross examination, nonfocal Skin- warm and dry, no rashes/lesions/wounds noted, large number of tattoos sleeves both arms Psych- pleasant and appropriate, Lab and Diagnostics Result Diagram: 12/07/16 0710 12/07/16 0710 X-Rays, CTs and MRIs CT ABDOMEN AND PELVIS WITH CONTRAST ([id number]) IMPRESSION: 1. Status post placement of percutaneous catheter and transgastric stent in large multiloculated pancreatic pseudocyst. Air locules are scattered throughout the pseudocyst which could be related to catheter stent placement versus infection with gas-forming organism. Recommend sampling of cystic fluid via the percutaneous catheter. 2. Small abscess in the midline of lower pelvis continues to decrease in size measuring approximately 1 cm in diameter in the current study. 3. Interval resolution of diffuse urinary bladder wall thickening. 4. Hepatic steatosis. 5. Colonic diverticulosis without evidence of diverticulitis. Approved by: Thao Lawler MD, PhD on 12/06/2016 at 18:55 Assessment & Plan 31 year old male admit 12/06 presumed infected pseudocyst. Hx pancreatitis / ETOH/hypertriglyceridemia s/p plasma exch w/ walled off pancreatic necrosis ( WOPN) s/p drainage admit 1d post w/ worsening abd pain/fever 1 day following drainage procedure at [facility]. 12/09 Patient reports less drainage from drain and is little concerned will discuss with went to re-image him to be worried and what an point should be. Uncontrolled DM/hyperglycemia, BS<200 12/07-12/08 new dx 12/09/16 - low correction SSI ordered - HgbA1c 12.1 12/06 Pancreatic pseudocyst, chronic, POA - endoscopic/surgical drain placement at 12/05/16, 1 day prior to admission - ED d/w Dr. Salmon (GI) @, may transfer if patient clinically worsens - piperacillin/tazobactam 12/04-, ID consult thanks Dr Osorio notes/recs appreciated Capofungin added 12/08- - f/u drain cultures and blood cultures 12/06-12/09 neg - records have been requested, pending Abdominal pain, acute, POA- 12/04 DMD procedure at - lipase WNL - NPO, Morphine REGULATORY CONSULTANT 12/08- Thrombocytopenia, acute, POA, plts 132 12/06, 119 /. H[facility] 2' ETOH follow Hypomagnesemia, acute, POA- Mg++ 1.3 12/06, 1.6 12/07 - monitor- replete PRN Elevated bilirubin, acute, POA- T rishabh 1.2 12/07 resolved - no documented history of isolated elevation of bilirubin - trending down 1.2 <--- 1.4 12/07 Hyponatremia, acute, POA- mild 130 2/, 133 2 - continue to monitor History of ETOH abuse, chronic- Hx ETOH dep, total 2.5 years sober, h/o DTs no withdrawal seizure, last drink 08/05/2016 SIRS, acute, resolved as of 12/08 - temp >38, HR >90, afebrile quadrant 24 hours - most likely associated with pancreatic pseudocyst drain placement and recent hospitalization however continued workup at this time for infection Prophylaxis- DVT patient on heparin and SCDs, GI patient on PPI Disposition- from home full code Medically complex patient in high risk of complications GI Prophylaxis: Proton Pump Inhibitor VTE Prophylaxis: Sub-Q Heparin (Unfractionated) VTE Mechanical Devices: Intermittant Pneumatic CD Resuscitation Status: CPR: Attempt Resuscitation Elliot Abdi MD Dec 09, 2016 12:13 Medically complex patient in high risk of complications GI Prophylaxis: Proton Pump Inhibitor VTE Prophylaxis: Sub-Q Heparin (Unfractionated) VTE Mechanical Devices: Intermittant Pneumatic CD Resuscitation Status: CPR: Attempt Resuscitation Elliot Abdi MD Dec 09, 2016 12:13
--- NOTE | 2016-12-09 15:01 | PROG NOTE ---
[address] [address] PROGRESS NOTE PATIENT: HOWIE REMY : 1985 MR#: [id number] ADMIT: 12/06/2016 JOB ID: [id number] DATE: 12/09/2016 INFECTIOUS DISEASE FOLLOW UP NOTE: REASON FOR FOLLOW UP: Infected walled-off pancreatic necrosis. INTERVAL HISTORY: Overnight, the patient reports he has been feeling considerably better. Fevers, chills and sweats have resolved. He has no cough, shortness of breath or chest pain. He is having minimal abdominal pain at the site of his pancreatic drain and he notes that his strength seems to be improving but he really cannot do much because he is tied down by his pancreatic drain as well as his telemetry. He wonders why he is on telemetry as he has no history of heart trouble and no chest pain. PHYSICAL EXAMINATION: Reveals an afebrile gentleman, temperature 37.1, pulse 108, respiratory rate 16, blood pressure 99/54. He is saturating well on room air. Examination of the oral cavity is unremarkable. The lungs are clear. Cardiac tones regular rate and rhythm. The abdomen is notable for the pancreatic drain. Otherwise it is relatively soft and nontender, though there is a diffuse sensation of fullness throughout the upper abdomen which may represent a small pancreatic necrosis. Extremities without significant edema. LABORATORIES: Include a white count of 4800, platelet count 119, creatinine 0.44. LFTs are normal. Albumin 3.5. Urinalysis without white cells. Micro studies include negative blood cultures. The urine is growing a heavy growth of yeast which is yet to be identified. The pancreatic drain is growing yeast as well as what appears to be lactobacillus and what appears to be a coagulase-negative Staph. I have discussed this in detail with microbiology and asked that the lactobacillus be sent to the [facility] for susceptibilities to ampicillin as well as clindamycin. IMPRESSION: This is an unfortunate young gentleman with evidence of walled-off pancreatic necrosis which was drained last week during his stay at [facility]. He now presents with fevers, chills and sepsis like syndrome with cultures positive from the pancreatic external drain. Which of these organisms is the primary pathogen is unclear but I certainly suspect it is yeast. Lactobacillus can under certain circumstances be a pathogen and this could be one of those possibilities. A coagulase negative Staph is unlikely to be a player here but will go ahead and do the susceptibilities. RECOMMENDATIONS: 1. Will continue with Zosyn. 2. Will continue with micafungin while we await identification of the yeast. 3. We await the susceptibilities and final ID on the lactobacillus from the [facility]. 4. It may be possible to switch to some oral medicines such as fluconazole and oral antibacterial going forward, but at this point, it is too soon to tell in terms of susceptibilities. 5. I wonder if the patient's telemetry could be discontinued as it is quite irritating to him and I am not certain what indication there is for it given his relative stability, youth, and absence of cardiac history.
--- NOTE | 2016-12-09 15:31 | NUR ---
Social Work Screen Note: SW met with patient at bedside to discus discharge plan. Patient is a 31 year old male admitted on 12/06/16 for infected pancreatic psendocyst. Patient payer as [employer]. Patient has no snf disability nor [place] benefits. Patient states PCP as MD August. Patient resides in [place] with roommate. Patient has no previous HHC or SNF history. Patient has a cane for use at home. Patient states pharmacy of choice as [facility]. Patient states being independent with needs and states he obtains support from friends. Patient denied any discharge needs at this time. SW will continue to follow. PLAN: Home with roommate via POV, pending clinical course. SW to follow Sayda GONZALEZ
--- NOTE | 2016-12-09 19:10 | NUR ---
Drain/Pain Transcutaneous drain needs to be flushed Q shift with 20cc. Pain reported at a tolerable level this shift with BOOK MENDER . Denies nausea. Call light and tray table within reach. Will continue to monitor patient hourly.
[2016-12-10] VITALS (11 sets, daily range): BP systolic 100–110; BP diastolic 55–70; PULSE 84–115; RESP 16–19; O2SAT 92–98
[2016-12-10] MEDS: Heparin 5,000 Unit/mL Inj SUBQ SCH ×2 (00:28→09:19)
[2016-12-10] MEDS: Piperacillin-Tazo 3.375 Gm Inj 3.375 GM in Dextrose 5% Minibag Plus 50 ML IV SCH ×2 (00:28→10:55)
--- NOTE | 2016-12-10 03:27 | NUR ---
Pain Morphine AUTOMOTIVE TIRE TECHNICIAN providing adequate relief from pain; rates pain 6/10 which pt calls "tolerable." Remains tachycardic per tele monitoring. Fever returned in evening, max temp to 38, responded well to Tylenol. Hourly rounding ongoing.
[2016-12-10] MEDS: 0.9% Sodium Chloride 1,000 ML IV SCH (03:31)
[2016-12-10 06:24] LABS: BASOPHILS % (AUTO) 0.5 % (0-3); EOSINOPHILS % (AUTO) 3.2 % (0-5); MONOCYTES % (AUTO) 23.3 % (4-12); Mean Corpuscular Hemoglobin 27.6 pg (27.0-35.0); NEUTROPHILS % (AUTO) 49.2 % (40-74); Platelet Count 185 bil/L (150-400)
[2016-12-10] MEDS: Morphine PCA 1 mg/mL 30 mL Inj IV PRN (06:36)
[2016-12-10 07:03] LABS: Magnesium 1.8 mg/dL (1.6-2.6); Phosphorus 3.3 mg/dL (2.5-4.9)
--- NOTE | 2016-12-10 07:28 | PCM.PNMED ---
Subjective Date of Service Dec 10, 2016 Exam Vital Signs Vital Sign - Last Date Time Temp Pulse Resp B/P Pulse Ox O2 Delivery O2 Flow Rate FiO2 12/10/16 06:11 16 98 12/10/16 04:38 36.8 97 100/65 Room Air Intake and Output 12/09/16 12/09/16 12/10/16 Cumulative From/Thru 15:00 23:00 07:00 12/06/16 16:39 - 12/10/16 06:19 Intake Total 1201 ml 2138 ml 53036 ml Output Total 1275 ml 1400 ml 60554 ml Balance -74 ml 738 ml 4706 ml Intake Oral 25 ml 4942 ml IV Total 1176 ml 2138 ml 67209 ml Output Urine Total 1275 ml 1400 ml 87852 ml Drainage Total 0 ml 250 ml # Voids 13 # Bowel Movements 0 0 Lab and Diagnostics Result Diagram: 12/10/16 0525 12/10/16 0525 X-Rays, CTs and MRIs CT ABDOMEN AND PELVIS WITH CONTRAST ([id number]) IMPRESSION: 1. Status post placement of percutaneous catheter and transgastric stent in large multiloculated pancreatic pseudocyst. Air locules are scattered throughout the pseudocyst which could be related to catheter stent placement versus infection with gas-forming organism. Recommend sampling of cystic fluid via the percutaneous catheter. 2. Small abscess in the midline of lower pelvis continues to decrease in size measuring approximately 1 cm in diameter in the current study. 3. Interval resolution of diffuse urinary bladder wall thickening. 4. Hepatic steatosis. 5. Colonic diverticulosis without evidence of diverticulitis. Approved by: Thao Lawler MD, PhD on 12/06/2016 at 18:55 Assessment & Plan 31 year old male admit 12/06 presumed infected pseudocyst. Hx pancreatitis / ETOH/hypertriglyceridemia s/p plasma exch w/ walled off pancreatic necrosis ( WOPN) s/p drainage admit 1d post w/ worsening abd pain/fever 1 day following drainage procedure at [facility]. 12/09 Patient reports less drainage from drain and is little concerned will discuss with went to re-image him to be worried and what an point should be. Uncontrolled DM/hyperglycemia, BS<200 12/07-2 new dx 12/09/16 - low correction SSI ordered - HgbA1c 12.1 12/06 Pancreatic pseudocyst, chronic, POA - endoscopic/surgical drain placement at 12/05/16, 1 day prior to admission - ED d/w Dr. Salmon (GI) @, may transfer if patient clinically worsens - piperacillin/tazobactam 12/04-, ID consult thanks Dr Osorio notes/recs appreciated Capofungin added 12/08- - f/u drain cultures and blood cultures 12/06-12/09 neg - records have been requested, pending Abdominal pain, acute, POA- 12/04 DMD procedure at - lipase WNL - NPO, Morphine DOCUMENT CONTROL ASSISTANT 12/08- Thrombocytopenia, acute, POA, plts 132 12/06, 119 12/07. [facility]SM 2' ETOH follow Hypomagnesemia, acute, POA- Mg++ 1.3 12/06, 1.6 12/07 - monitor- replete PRN Elevated bilirubin, acute, POA- T rishabh 1.2 12/07 resolved - no documented history of isolated elevation of bilirubin - trending down 1.2 <--- 1.4 12/07 Hyponatremia, acute, POA- mild 130 12/04, 133 12/07 - continue to monitor History of ETOH abuse, chronic- Hx ETOH dep, total 2.5 years sober, h/o DTs no withdrawal seizure, last drink 08/05/2016 SIRS, acute, resolved as of 12/08 - temp >38, HR >90, afebrile quadrant 24 hours - most likely associated with pancreatic pseudocyst drain placement and recent hospitalization however continued workup at this time for infection Prophylaxis- DVT patient on heparin and SCDs, GI patient on PPI Disposition- from home full code Medically complex patient in high risk of complications GI Prophylaxis: Proton Pump Inhibitor VTE Prophylaxis: Sub-Q Heparin (Unfractionated) VTE Mechanical Devices: Intermittant Pneumatic CD Resuscitation Status: CPR: Attempt Resuscitation Elliot Abdi MD Dec 10, 2016 07:27
[2016-12-10] MEDS: Insulin LISPRO 300 Unit/3 mL Inj SUBQ SCH ×2 (08:00→12:00)
[2016-12-10] MEDS: Micafungin Inj 150 MG in 0.9% Sodium Chloride 100 ML IV SCH (09:19)
[2016-12-10] MEDS ORDERED: 0.9% NaCl + KCl 20 mEq/L 1,000 ML IV SCH (11:40)
[2016-12-10] MEDS ORDERED: Magnesium Sulf 4 Gm/100 mL H2O 4 GM in IV Premix 1 EACH IV ONE (11:40)
--- NOTE | 2016-12-10 11:41 | PCM.PNMED ---
Subjective Date of Service Dec 10, 2016 Subjective Pain is adequately controlled with MARKETING BUSINESS ANALYST pump. Minimal drainage out of drain, he and it has not flushed easily according to the patient. He denies having chest pain and no dyspnea and is very hungry Exam Vital Signs Vital Sign - Last Date Time Temp Pulse Resp B/P Pulse Ox O2 Delivery O2 Flow Rate FiO2 12/10/16 09:37 36.8 96 18 104/66 96 Room Air Intake and Output 12/09/16 12/09/16 12/10/16 Cumulative From/Thru 15:00 23:00 07:00 12/06/16 16:39 - 12/10/16 06:19 Intake Total 1201 ml 2138 ml 53639 ml Output Total 1275 ml 1400 ml 04259 ml Balance -74 ml 738 ml 4706 ml Intake Oral 25 ml 4942 ml IV Total 1176 ml 2138 ml 72383 ml Output Urine Total 1275 ml 1400 ml 67238 ml Drainage Total 0 ml 250 ml # Voids 13 # Bowel Movements 0 0 Exam Gen.- A+ O 3 no apparent distress. Eyes- open conjunctiva clear, pupils equal nonicteric Mouth- oral mucosa moist, no exudate ENT- ears normal, nose normal Neck- supple/trach midline CVS- regular normal rate Lungs-normal rate nonlabored GI-flat, drain extruding serous sanguinous drainage Musc- moving 4 no obvious deformity Neuro- cranial nerves II through XII intact to gross examination, nonfocal Skin- warm and dry, no rashes/lesions/wounds noted, large number of tattoos sleeves both arms and a few on the chest Psych- pleasant and appropriate, Lab and Diagnostics Result Diagram: 12/10/1625 12/10/1625 X-Rays, CTs and MRIs CT ABDOMEN AND PELVIS WITH CONTRAST ([id number]) IMPRESSION: 1. Status post placement of percutaneous catheter and transgastric stent in large multiloculated pancreatic pseudocyst. Air locules are scattered throughout the pseudocyst which could be related to catheter stent placement versus infection with gas-forming organism. Recommend sampling of cystic fluid via the percutaneous catheter. 2. Small abscess in the midline of lower pelvis continues to decrease in size measuring approximately 1 cm in diameter in the current study. 3. Interval resolution of diffuse urinary bladder wall thickening. 4. Hepatic steatosis. 5. Colonic diverticulosis without evidence of diverticulitis. Approved by: Thao Lawler MD, PhD on 12/06/2016 at 18:55 Assessment & Plan 31 year old male admit 12/06 presumed infected pseudocyst. Hx pancreatitis 2/2 ETOH/hypertriglyceridemia s/p plasma exch w/ walled off pancreatic necrosis ( WOPN) s/p drainage admit 1d post w/ worsening abd pain/fever 1 day following drainage procedure at [facility]. 12/09 Patient reports less drainage from drain and is little concerned will discuss with went to re-image him to be worried and what an point should be. 12/10 starting clear liquids hoping to wean MARKETING BUSINESS ANALYST today or tomorrow if pain does not worsen and transition to oral narcotics in anticipation of potential discharge once ID has determined plan. Patient may need "tube check" which may simply be a plain CT of the abdomen and pelvis but I will check with Dr. Salmon specifically to see if there are any protocols to be followed. May need TPN 12/11 if not tolerating PO. Uncontrolled DM/hyperglycemia, BS<200 12/07-12/08 new dx 12/09/16, 90s while pt NPO 12/10 - low correction SSI ordered - HgbA1c 12.1 12/06 Pancreatic pseudocyst, chronic, POA- lacto coccus pancreatic fluid 12/09 C+S pend 12/10, flush drain qshiuft 20mls NS - endoscopic/surgical drain placement at 12/05/16, 1 day prior to admission - d/w Dr. Salmon (GI) @ (ED+12/09), may transfer if patient clinically worsens - piperacillin/tazobactam 12/04-, ID consult thanks Dr Osorio notes/recs appreciated Capofungin added 12/08- - f/u drain cultures and blood cultures 12/06-12/09 neg - records have been requested, pending Candiduria- pt on Capofungin 12/08-present awaiting C+S hypokalemia- K+ 3.4 12/10 monitor/replete (NS 20eq KCl 12/10-) Abdominal pain, acute, POA- 12/04 DMD procedure at - lipase WNL2/4, NPO -12/10, Morphine MARKETING BUSINESS ANALYST 12/08-, trial diet 12/10 Thrombocytopenia, acute, POA, plts 132 2/, 119 2/, 185 12/10. [facility] 2' ETOH follow Hypomag, acute, POA- Mg++ 1.3 2/, 1.6 2/, 1.8 12/10 - monitor- replete PRN Elevated bilirubin, acute, POA- T rishabh 1.2 12/07 resolved - no documented history of isolated elevation of bilirubin - trending down 1.2 <--- 1.4 12/07 Hyponatremia, acute, POA- mild 130 2/, 133 2/, 136 12/10 - continue to monitor Hx of ETOH abuse, chronic- Hx ETOH dep, total 2.5 years sober, h/o DTs no withdrawal seizure, last drink 08/05/2016 SIRS, acute, resolved as of 12/08 - temp >38, HR >90, afebrile quadrant 24 hours - most likely associated with pancreatic pseudocyst drain placement and recent hospitalization however continued workup at this time for infection Prophylaxis- DVT patient on heparin and SCDs, GI patient on PPI Disposition- from home full code Medically complex patient in high risk of complications GI Prophylaxis: Proton Pump Inhibitor VTE Prophylaxis: Sub-Q Heparin (Unfractionated) VTE Mechanical Devices: Intermittant Pneumatic CD Resuscitation Status: CPR: Attempt Resuscitation Elliot Abdi MD Dec 10, 2016 11:41
--- NOTE | 2016-12-10 11:58 | PROG NOTE ---
[address] [address] PROGRESS NOTE PATIENT: HOWIE REMY : 1985 MR#: [id number] ADMIT: 12/06/2016 JOB ID: [id number] DATE: 12/10/2016 INFECTIOUS DISEASE FOLLOWUP NOTE: REASON FOR FOLLOWUP: Infected walled-off pancreatic necrosis with polymicrobial binh. INTERVAL HISTORY: Overnight, the patient says he had a subjective low-grade fever but had no chills. He still has some moderate epigastric pain but it seems to be gradually improving. No shortness of breath or cough is noted. No skin rash. OBJECTIVE: He is afebrile. Temperature was 38 degrees at 9:00 last night, otherwise he has been afebrile for days. His pulse is in the 90s, respiratory rate in the teens, blood pressure 104/66, saturating well on room air. Oral cavity negative. Lungs clear. Abdomen distended, especially in the upper abdomen. Drain is present on the right as previously. Bowel sounds are hypoactive. The abdomen is distended as mentioned and somewhat diffusely tender but very mildly so and no worse than yesterday. No skin rash is noted. LABORATORY DATA: Today's white count 3700, basically normal diff except some monocytosis. Creatinine 0.5. LFTs normal. Procalcitonin 0.36. Of interest, his CRP is a whopping 32.5 which is 65 times normal. Urinalysis without white cells. The culture from the peritoneal area is growing lactobacillus as well as Dianna albicans and coag-negative staph. I have asked that the lactobacillus species be sent to the [facility] to be definitively identified and have susceptibilities done to penicillin and clindamycin. I have also asked that the coagulase-negative Staph be isolated and completely worked up and that the Dianna albicans be sent for fluconazole susceptibility testing. IMPRESSION: This unfortunate gentleman has an infection of his walled-off pancreatic necrosis which was recently instrumented and drained at [facility]. I think the yeast, which appears to be Dianna albicans, is the probable main pathogen here, but the lactobacillus and the coag-negative Staph may or may not be important. RECOMMENDATIONS: 1. Will continue with Zosyn and micafungin while we await all the different microbiologic studies that are pending. 2. I hope to be able to switch to oral antibiotics in the next 1-3 days and hopefully facilitate the patient's discharge before the weekend.
--- NOTE | 2016-12-10 14:44 | NUR ---
Social Work Continued Discharge Planning: LIAM spoke to patient and bedside Rn who states that patient to be transferred to [facility]. Patient states being in agreement to transfer. Patient inquired about Medicaid/Disability assistance. SW contacted [facility] per patient request to discuss financial eligibility concerns. No other needs at this time. PLAN: Transfer to [facility] Reji GONZALEZ
--- NOTE | 2016-12-10 16:27 | NUR ---
NUTRITION ASSESSMENT Assess: 31 yo M w/ pancreatic pseudocyst and uncontrolled diabetes w/ new diagnosis of type diabetes. Day 5 s/p pancreatic drain placement at w/ 10 ml of drainage so far today. Pt NPO x3 days, diet advanced today. Pt states that he has been told he has diabetes and told he doesn't have diabetes multiple times in the last 6 months. Doctor are unsure about whether or not his elevated blood sugars are acute or chronic. Pt is likely transferring soon. PMHx: EtOH abuse, Alcoholic liver disease, Intraabdominal abscess, Hypertriglyceridemia LABS: K 3.4, Cl 96, BUN 5, Cr 0.50, CRP 32.5 MEDICATIONS: Reviewed DIET: Full liquid NUTRITION FOCUSED PHYSICAL ASSESSMENT: GI symptoms/stool: No BM recordedBraden: 18 Skin integrity: No issues noted Overall Appearance: Pt sitting in bed - thinning in arms ANTHROPOMETRICS: Current Wt: 59.6 kg BMI: 23.3 kg/m2 Admit Wt: 62.9 kg (bed-scale) IBW: 56.4 kgRecent wt changes: Fluctuating ESTIMATED NEEDS: Liver Calories: 0073-7393 kcal/d (30-35 kcal/kg/d) Protein: 70-90 g/d (1.2-1.5 g/kg/d) Fluids: 6237-9419 ml/d (1 ml/kcal/d) NUTRITION DIAGNOSIS: 1) Altered nutrition related lab values related to pancreas injury as evidenced by A1c of 12.1 and possible new diabetes. INTERVENTION: 1) Reviewed diabetic diet with pt and will refer him to outpatient DM program 2) Discussed benefits of following a diabetic diet despite flip-flopping diagnoses. MONITOR/EVALUATE: PO intake, Labs, Wt, Nutrition status, POC. Will follow per high nutrition risk guidelines.
[2016-12-10] MEDS ORDERED: Morphine ER 15 mg (MS Contin) Tablet PO SCH (16:30)
--- NOTE | 2016-12-10 16:53 | PCM.DIMED ---
Discharge Instructions Date of Service Dec 10, 2016 Dates of Hospitalization Dec 06, 2016 at 20:40 Discharge Diagnosis Discharge Diagnosis Infected pancreatic pseudocyst Diet Low fat, Low Sodium, Other (low residual low-fat) Call your provider Fever or Chills, Excessive diarrhea Patient Instructions Transfer to [facility] Follow-up plan As per Vanessa Horton Attending's Statement Patient transferring to [facility] per Dr. Salmon for pancreatic stent change Elliot Abdi MD Dec 10, 2016 16:53
--- NOTE | 2016-12-10 16:56 | PCM.DC.MED ---
Discharge Summary Date of Service Dec 10, 2016 Dates of Hospitalization Date of Hospital Admission Dec 06, 2016 at 20:40 Date of Discharge: Dec 10, 2016 Providers: Admitting Physician: Claudia Potts DO Primary Care Physician: Gertrudis August DO Attending Physician: lCaudia Potts DO Diagnosis at Time of Discharge Diagnosis at Time of Discharge Infected pancreatic pseudocyst Consultations Infectious disease Dr. Osorio Procedures XRay, CTs & MRIs CT ABDOMEN AND PELVIS WITH CONTRAST ([id number]) IMPRESSION: 1. Status post placement of percutaneous catheter and transgastric stent in large multiloculated pancreatic pseudocyst. Air locules are scattered throughout the pseudocyst which could be related to catheter stent placement versus infection with gas-forming organism. Recommend sampling of cystic fluid via the percutaneous catheter. 2. Small abscess in the midline of lower pelvis continues to decrease in size measuring approximately 1 cm in diameter in the current study. 3. Interval resolution of diffuse urinary bladder wall thickening. 4. Hepatic steatosis. 5. Colonic diverticulosis without evidence of diverticulitis. Approved by: Thao Lawler MD, PhD on 12/06/2016 at 18:55 Brief History 31yoM with past medical history of daily alcohol consumption, pancreatitis 2/2 ETOH and hypertriglyceridemia s/p plasma exchange with course complicated by subsequent walled of pancreatic necrosis (WOPN) now s/p drainage admitted with worsening abdominal pain and fever 1 day following drainage procedure at [facility]. Patient states that following pancreatitis in 08/2016 he began having worsening abdominal pain at which time he was seen at [facility] ED and found to have a large pancreatic pseudocyst / WOPN. Drainage of WOPN was completed at [facility] with what is described as dual modality drainage by patient and ED physician. Records not available on admission. He was discharged on 12/05/2016 and felt improved until the morning of 12/06/2016 at which time he began having worsening 7 /10 persistent abdominal pain with radiation throughout mid abdomen, subjective fevers, and mild rigors. In addition he notes decreased PO intake. As per direction Mr. Cohen came to [facility] ED for further evaluation. At this time patient endorses the above complaints in addition to mild headache and nausea. He denies chest pain, dyspnea, lightheadedness, dizziness, changes in vision or hearing, urination, changes in bowel movements. His transcutaneous drain has been putting out dark moe fluid. 100cc taken from bag upon arrival. Vitals on presentation T38.6, RR16, BP 108/68, HR 133, 95% on RA. WBC 7.8 with 16.5% monos, sodium 130, mag 1.3, tbili 1.4. Hospital Course 31 year old male admit 12/06 presumed infected pseudocyst. Hx pancreatitis / ETOH/hypertriglyceridemia s/p plasma exch w/ walled off pancreatic necrosis ( WOPN) s/p drainage admit 1d post w/ worsening abd pain/fever 1 day following drainage procedure at [facility]. 12/09 Patient reports less drainage from drain and is little concerned will discuss with went to re-image him to be worried and what an point should be. 12/10 starting clear liquids hoping to wean [employer] today or tomorrow if pain does not worsen and transition to oral narcotics in anticipation of potential discharge once ID has determined plan. Patient may need "tube check" which may simply be a plain CT of the abdomen and pelvis but I will check with Dr. Salmon specifically to see if there are any protocols to be followed. May need TPN 12/11 if not tolerating PO. Uncontrolled DM/hyperglycemia, BS<200 12/07-12/08 new dx 12/09/16, 90s while pt NPO 12/10 - low correction SSI ordered - HgbA1c 12.1 12/06 Pancreatic pseudocyst, chronic, POA- lacto coccus pancreatic fluid 12/09 C+S pend 12/10, flush drain qshiuft 20mls NS - endoscopic/surgical drain placement at 12/05/16, 1 day prior to admission - d/w Dr. Salmon (GI) @ (ED+12/09), may transfer if patient clinically worsens - piperacillin/tazobactam 12/04-, ID consult thanks Dr Osorio notes/recs appreciated Capofungin added 12/08- - f/u drain cultures and blood cultures 12/06-12/09 neg - records have been requested, pending Candiduria- pt on Capofungin 12/08-present awaiting C+S hypokalemia- K+ 3.4 12/10 monitor/replete (NS 20eq KCl 12/10-) Abdominal pain, acute, POA- 2 DMD procedure at - lipase WNL2/4, NPO -12/10, Morphine BUGG[employer]ER 12/08-, trial diet 12/10 Thrombocytopenia, acute, POA, plts 132 2/, 119 2, 185 12/10. [facility] 2' ETOH follow Hypomag, acute, POA- Mg++ 1.3 12/06, 1.6 2, 1.8 12/10 - monitor- replete PRN Elevated bilirubin, acute, POA- T rishabh 1.2 12/07 resolved - no documented history of isolated elevation of bilirubin - trending down 1.2 <--- 1.4 12/07 Hyponatremia, acute, POA- mild 130 2/, 133 12/07, 136 12/10 - continue to monitor Hx of ETOH abuse, chronic- Hx ETOH dep, total 2.5 years sober, h/o DTs no withdrawal seizure, last drink 08/05/2016 SIRS, acute, resolved as of 12/08 - temp >38, HR >90, afebrile quadrant 24 hours - most likely associated with pancreatic pseudocyst drain placement and recent hospitalization however continued workup at this time for infection Prophylaxis- DVT patient on heparin and SCDs, GI patient on PPI Disposition- from home full code Medically complex patient in high risk of complications Exam Vital Signs (Last) Date Time Temp Pulse Resp B/P Pulse Ox O2 Delivery O2 Flow Rate FiO2 12/10/16 14:38 18 98 12/10/16 12:19 36.4 102 110/70 Room Air Exam Please see physical exam from today's inpatient note Test 12/06/16 17:10 12/06/16 19:20 12/06/16 20:30 12/10/16 05:25 Prothrombin Time 11.8sec (8.1-12.5) Prothromb Time International Ratio 1.10ratio Hemoglobin A1c 12.1% (4.8-5.6) Lactic Acid Level 1.6mmol/L (0.4-2.0) Troponin T < 0.010ug/L (0.0-0.011) Lipase 19U/L (13-60) Urine Color Yellow (YELLOW) Urine Appearance Clear (CLEAR,HAZY) Urine pH 7.0 (5.0-8.0) Urine Specific [place] 1.025 (1.003-1.035) Urine Protein Tracemg/dL (NEG,TRACE) Urine Glucose (UA) 1000mg/dL (NEGATIVE) Urine Ketones 40mg/dL (NEGATIVE) Urine Occult Blood Trace (NEGATIVE) Urine Nitrite Negative (NEGATIVE) Urine Bilirubin Negative (NEGATIVE) Urine Urobilinogen Normalmg/dL (NORMAL) Urine Leukocyte Esterase Trace (NEGATIVE) Urine RBC 0-2/hpf (0-2) Urine WBC 0-5/hpf (0-5) Urine Epithelial Cells None/hpf (NONE-MOD) Urine Crystals None seen (NONE SEEN) Urine Bacteria Few/hpf (NONE-FEW) Urine Hyaline Casts None/lpf (NONE) Urine Granular Casts None seen (NONE SEEN) Urine Waxy Casts None seen (NONE SEEN) Urine Red Blood Cell Casts None seen (NONE SEEN) Urine White Blood Cell Casts None seen (NONE SEEN) Urine Mucus Present (None Seen) Urine Trichomonas None seen (NONE SEEN) Urine Yeast None (NONE SEEN) Urinalysis Comment None Urine Culture Reflexed Indicated Miscellaneous Test Comment White Blood Count 3.7th/mm3 (3.8-10.1) Red Blood Count 4.71mil/mm3 (4.40-5.80) Hemoglobin 13.0g/dL (13.8-17.2) Hematocrit 37.7% (41.0-50.0) Mean Corpuscular Volume 80.0fL (81-100) Mean Corpuscular Hemoglobin 27.6pg (27.0-35.0) Mean Corpuscular Hemoglobin Concent 34.5% (32.0-37.0) Red Cell Distribution Width 12.2% (12.3-15.4) Platelet Count 185bil/L (150-400) Neutrophils (%) (Auto) 49.2% (40-74) Lymphocytes (%) (Auto) 22.7% (14-46) Monocytes (%) (Auto) 23.3% (4-12) Eosinophils (%) (Auto) 3.2% (0-5) Basophils (%) (Auto) 0.5% (0-3) Sodium Level 136mEq/L (134-144) Potassium Level 3.4mEq/L (3.5-5.2) Chloride Level 96mEq/L (97-108) Carbon Dioxide Level 20mmol/L (18-29) Blood Urea Nitrogen 5mg/dL (6-20) Creatinine 0.50mg/dL (0.76-1.27) Estimat Glomerular Filtration Rate 209mL/min (>59) Glucose Level 98mg/dL (60-99) Calcium Level 8.6mg/dL (8.5-10.1) Phosphorus Level 3.3mg/dL (2.5-4.9) Magnesium Level 1.8mg/dL (1.6-2.6) Total Bilirubin 1.0mg/dL (0.0-1.2) Aspartate Amino Transf (AST/SGOT) 11U/L (0-50) Alanine Aminotransferase (ALT/SGPT) 7U/L (0-44) Alkaline Phosphatase 95U/L (25-150) C-Reactive Protein 32.5mg/dL (0.0-0.5) Total Protein 6.5g/dL (6.4-8.4) Albumin 3.6g/dL (3.4-5.0) Procalcitonin 0.36ng/mL (0.00-0.08) Microbiology Results See hospital course Discharge Medications No Active Prescriptions or Reported Meds Followup Plan Follow-up plan As per [facility] Discharge Diet: Low fat, Low Sodium, Diabetic, Other (low residual low-fat) Patient Instructions Transfer to [facility] Follow-up Provider: Gertrudis August DO Follow-up with PCP in: Other (colon discharged from [facility] or as per [facility] providers) Time spent Greater than 30 minutes Attending Statement Transferring to [facility] follow-up care per providers there copies to: Gertrudis August Andris E MD Dec 10, 2016 16:56
--- NOTE | 2016-12-10 18:22 | NUR ---
Discharged Patient discharged to [facility] via BLS. IV intact. Reported called to Alyse at . Patient gathered all belongings. Patient reported 7/10 generalized pain. 15 mg Morphine PO and 2 tabs of Senna given. BLS escorted patient out via stretcher.
== END 2016-12-10 18:00 | disposition short-term general hospital (02) | DRG 282 ==
LOC: SED 16:32 → OSC 20:40 → OBSVTOIN 20:40
PROVIDERS: ADMIT Internal Medicine; ATTEND Internal Medicine
DX: K85.92 Acute pancreatitis with infected necrosis, unspecified (principal); K86.3 Pseudocyst of pancreas; F17.200 Nicotine dependence, unspecified, uncomplicated; K70.9 Alcoholic liver disease, unspecified; D72.821 Monocytosis (symptomatic); F10.10 Alcohol abuse, uncomplicated; E83.42 Hypomagnesemia; K57.90 Diverticulosis of intestine, part unspecified, without perforation or abscess without bleeding; E87.6 Hypokalemia; E11.65 Type 2 diabetes mellitus with hyperglycemia; B88.8 Other specified infestations; Z98.890 Other specified postprocedural states

== ENCOUNTER 2016-12-17 16:55 | Emergency (ER) | payer OTHER ==
[2016-12-17 17:19] VITALS: BP 106/67; PULSE 114; RESP 18; O2SAT 95
--- NOTE | 2016-12-17 20:03 | ED.REPORT ---
HPI-General Illness Date of Service Dec 17, 2016 ED Provider: Deacon Philippe PA-C You is a 31-year-old male with a history of diabetes and pancreatic pseudocyst who is here out of concern for drainage around the site of his abdominal drain. He reports that he was underwent surgery for pancreatic pseudocysts approximately 2 weeks ago, when the drain was placed. Shortly after that he developed a fever and was transferred to [facility]. He is discharged several days later with a smaller gauge drain. He presents today because of increasing pain the site as well as drainage from around the tube. Admits upper abdominal pain. Denies fevers, chills, malaise, vomiting, diarrhea. He has been taking fluconazole and Augmentin as directed as well as hydrocodone/APAP 5/325 for pain. Nursing Notes Stated Complaint: LEAKING DRAINAGE TUBE Chief Complaint: General Complaint Nursing Notes Reviewed: Yes Allergies: Coded Allergies: No Known Allergies (Verified Allergy, Unknown, 10/19/16) No Active Prescriptions or Reported Meds General Time Seen by MD: 19:33 Chief Complaint Other (surgical drain problem.) Past Medical History Past Medical History Hx of alcohol abuse Alcoholic liver disease Pancreatitis Reports: Diabetes mellitus Reports: Depression Past Surgical History 1) 01/27/16: Procedure: Exploratory laparotomy, lysis of adhesions, drainage of intra-abdominal abscess, appendectomy, rigid proctoscopy, flexible sigmoidoscopy Surgeon: Neo Daniel M.D. 2) Endoscopic drainage of his pancreatic psuedocyst at [facility] R hand wound repair Family History noncontributory Smoking History Current Some Day Smoker Social History Alcohol Use: Denies alcohol use Drug Use: Denies drug use, THC Other Social History: Good social support, Local resident Ambulatory Status Independent Review of Systems General: Denies fever, chills, malaise. HEENT: Denies congestion, headache, sore throat. Respiratory: Denies dyspnea, cough, shortness of breath, wheezing. Cardiovascular: Denies chest pain, palpitations. Gastrointestinal: Admits abdominal pain, denies vomiting, diarrhea Genitourinary: Denies frequency, urgency, dysuria, hematuria. Otherwise as noted in HPI. Physical Exam General: Well appearing, well developed, well nourished, no acute distress. Abdomen: Proximally size 7 [place] tube is in place at the upper right quadrant. There is no appreciable redness, swelling. There is a small amount of lr/ green discharge around the tube and the area is quite tender. Upper abdominal quadrants are moderately tender without guarding or rebound. Head: Atraumatic, normocephalic. Eyes: No scleral icterus or injection. No discharge. Vision grossly intact. ENT: Voice clear, hearing grossly intact. Respiratory: No respiratory distress, increased work of breathing. Speaks in complete sentences. Skin: Warm and dry. Neurological: Grossly nonfocal. Psychological: alert and oriented. Speech appropriate, linear and logical. Behavior appropriate. Vital Signs Vital Signs Date Time Temp Pulse Resp B/P Pulse Ox O2 Delivery O2 Flow Rate FiO2 12/17/16 21:16 99 106/75 99 Room Air 12/17/16 20:27 37 104 16 98/67 97 Room Air 12/17/16 17:19 36.5 114 18 106/67 95 Initial VS: Vital signs abnormal (tachycardic. Patient states that this is near his baseline.) Re-Eval/Medical Decision Med Decision/Clinical Course 31-year-old male with a recent history of pancreatic pseudocyst treated with surgical placement of a drain presents out of concern for increased discharge around the drain site. He complains of mild upper abdominal pain but denies fever, chills, malaise, vomiting.pain. He is taking his antibiotics as directed. This could exam reveals a small amount of induration around the drain site as well as lr/green/yellow discharge around the drain tube. It appears similar to the contents of the drain. The patient is mildly tachycardia at just over 100 bpm which he states this is baseline. He Is also afebrile. I discussed the case with Dr. Ni examined the patient. I also I consulted with Dr. Mack at [facility] who is on his care team. He believes patient is safe for discharge and will follow-up in the next couple of days. I discussed this with the patient is comfortable with the plan for discharge. Provided return precautions. Consultation : Call Returned at: 20:57 Note: I discussed his case with Dr. Mack at [facility]. He feels that if the patient is nontoxic appearing he is discharged home and be seen in the office in the next couple of days. He has asked the patient to call in the morning to arrange follow-up. Discharge & Departure Primary Impression: Draining postoperative wound Encounter type: initial encounter Qualified Code: T81.89XA - Other complications of procedures, not elsewhere classified, initial encounter Disposition: Home Discharge Condition All VS Reviewed: Yes Condition: Stable Additional Instructions: Evaluation for increased drainage around a wound drain. Your clinical examination is generally reassuring with no overt signs of infection or sepsis. I discussed the case with Dr. Mack at [facility]. He feels that he was safe to be discharged to home and follow-up with your surgeon. Please contact them in the morning to arrange follow-up. Continue to manage drain as you have been and take all medications. Return to emergency department for any new or worsening symptoms including increasing pain, increasing drainage, redness, swelling, fatigue, fever. Referrals: Gertrudis August DO (PCP) EDSupervising Provider for APC: Diesi Ni MD Attending Statement I spent [id number] time with this patient and agree with the evaluation and disposition. The patient does have some discharge, it is minimal and he has some induration anteriorly but there is no warmth or erythema. The case was discussed with the on-call surgeon at [facility] he has close follow-up. Patient was noted to be tachycardic but he says this is his baseline. copies to: Gertrudis August Seth PA-C Dec 17, 2016 20:03 Deisi Ni MD Dec 18, 2016 01:01
[2016-12-17 20:27] VITALS: BP 98/67; PULSE 104; RESP 16; O2SAT 97
[2016-12-17 21:16] VITALS: BP 106/75; PULSE 99; O2SAT 99
== END 2016-12-17 21:17 | disposition home or self-care (01) ==
LOC: SED 16:55
DX: T81.89XA Other complications of procedures, not elsewhere classified, initial encounter (principal); Y83.8 Other surgical procedures as the cause of abnormal reaction of the patient, or of later complication, without mention of misadventure at the time of the procedure; Y93.89 Activity, other specified; Y92.89 Other specified places as the place of occurrence of the external cause; Y99.8 Other external cause status; Z98.890 Other specified postprocedural states; E11.9 Type 2 diabetes mellitus without complications; F17.200 Nicotine dependence, unspecified, uncomplicated

== ENCOUNTER 2016-12-22 11:00 | Emergency (ER) | payer OTHER ==
[~2016-12-22] VITALS: Ht 160 cm; Wt 61.4 kg
[2016-12-22 11:07] VITALS: BP 94/64; PULSE 105; RESP 20; O2SAT 96
[2016-12-22 12:25] LABS: Mean Corpuscular Hemoglobin 26.6 pg (27.0-35.0)
[2016-12-22 12:31] LABS: Mean Corpuscular Volume 80.9 fL (81-100); Platelet Count 339 bil/L (150-400)
--- NOTE | 2016-12-22 13:16 | ED.REPORT ---
HPI-General Illness Date of Service Dec 22, 2016 ED Provider: Fredy Marcelino MD You is a 31-year-old male with a history of type II diabetes and recent procedure to drain a pancreatic pseudocyst who presents with increased pain and drainage at this site of his wound drain. He was seen in this department approximately 5 days ago for similar symptoms, and made arrangements to be seen at [facility] by his surgeon in approximately 8 days. However today he complains of intermittent fever/chills and tachycardia for the last 2 days as well as increased drainage and pain that the wound site as well as abdominal pain. Denies vomiting, diarrhea, melena, hematochezia. Nursing Notes Stated Complaint: ABDOMINAL PAIN/FEVER Chief Complaint: General Complaint Allergies: Coded Allergies: No Known Allergies (Verified Allergy, Unknown, 10/19/16) Scheduled PRN Hydrocodone-Acetaminophen 5-325 mg (Hydrocodone-Acetaminophen 5-325 mg) 1 Each Tablet 1 TABLET PO Q4H PRN PRN For Pain General Time Seen by MD: 13:11 Chief Complaint Other (surgical drain malfunction) Past Medical History Past Medical History Hx of alcohol abuse Alcoholic liver disease Pancreatitis Reports: Diabetes mellitus Reports: Depression Past Surgical History 1) 01/27/16: Procedure: Exploratory laparotomy, lysis of adhesions, drainage of intra-abdominal abscess, appendectomy, rigid proctoscopy, flexible sigmoidoscopy Surgeon: Neo Daniel M.D. 2) Endoscopic drainage of his pancreatic psuedocyst at [facility] R hand wound repair Family History noncontributory Smoking History Current Some Day Smoker Social History Alcohol Use: Denies alcohol use Drug Use: Denies drug use, THC Other Social History: Good social support, Local resident Ambulatory Status Independent Review of Systems Negative unless stated otherwise in history of present illness Physical Exam General: Well appearing, well developed, well nourished, no acute distress. Head: Atraumatic, normocephalic. Eyes: No scleral icterus or injection. No discharge. Vision grossly intact. ENT: Voice clear, hearing grossly intact. Respiratory: Regular rate and rhythm. Breath sounds present, clear to auscultation and equal bilaterally. No respiratory distress. No increased work of breathing, speaks in complete sentences. Cardiovascular: Regular rate and rhythm, without murmur, gallop or rub. No pedal edema. Gastrointestinal: Wound drain does not appear to be functional, with no drainage in the back however there is lr/green drainage notable around the tube and the nurse reports recently cleaning up drainage on the bed. Mild erythema and moderate tenderness at wound site. Abdomen flat and mildly tender without guarding or rebound. Bowel sounds normoactive. Skin: Warm and dry. Neurological: Grossly nonfocal. Psychological: Alert and oriented. Speech appropriate, linear and logical. Behavior appropriate. Vital Signs Vital Signs Date Time Temp Pulse Resp B/P Pulse Ox O2 Delivery O2 Flow Rate FiO2 12/22/16 17:49 37.2 92 16 101/58 98 Room Air 12/22/16 16:39 55 14 106/60 96 Room Air 12/22/16 11:07 36.6 105 20 94/64 96 Room Air Initial VS: Reviewed, Vital signs abnormal (mild tachycardia, patient reports this is baseline) Interpretation & Diagnostics Interpretation & Diagnostics: Mild anemia appears to be at baseline Alkaline phosphatase 244 up from 95 approximately 2 weeks ago Glucose at 180, chloride and sodium mildly low Lab Results Interpretation Result Diagram: 12/22/16 1217 12/22/16 1217 Test 12/22/16 12:17 White Blood Count 7.3th/mm3 (3.8-10.1) Red Blood Count 4.82mil/mm3 (4.40-5.80) Hemoglobin 12.8g/dL (13.8-17.2) Hematocrit 39.0% (41.0-50.0) Mean Corpuscular Volume 80.9fL (81-100) Mean Corpuscular Hemoglobin 26.6pg (27.0-35.0) Mean Corpuscular Hemoglobin Concent 32.8% (32.0-37.0) Red Cell Distribution Width 12.4% (12.3-15.4) Platelet Count 339bil/L (150-400) Neutrophils (%) (Auto) 64% (40-74) Lymphocytes (%) (Auto) 15% (14-46) Monocytes (%) (Auto) 16% (4-12) Eosinophils (%) (Auto) 0% (0-5) Basophils (%) (Auto) 0% (0-3) Band Neutrophils % 5% (1-5) Sodium Level 130mEq/L (134-144) Potassium Level 4.7mEq/L (3.5-5.2) Chloride Level 89mEq/L (97-108) Carbon Dioxide Level 26mmol/L (18-29) Blood Urea Nitrogen 8mg/dL (6-20) Creatinine 0.57mg/dL (0.76-1.27) Estimat Glomerular Filtration Rate 180mL/min (>59) Glucose Level 180mg/dL (60-99) Calcium Level 9.2mg/dL (8.5-10.1) Total Bilirubin 0.8mg/dL (0.0-1.2) Aspartate Amino Transf (AST/SGOT) 29U/L (0-50) Alanine Aminotransferase (ALT/SGPT) 27U/L (0-44) Alkaline Phosphatase 244U/L (25-150) Total Protein 7.5g/dL (6.4-8.4) Albumin 3.8g/dL (3.4-5.0) Re-Eval/Medical Decision Med Decision/Clinical Course Otherwise healthy 31-year-old male presents returns to the emergency department for drainage from around his surgical drain. He states his surgical drainage stopped working and pain in his abdomen and side are increasing. His clinical exam exam reveals mild tenderness in his abdomen as well as tenderness around the site of the wound drain, but no obvious signs of severe infection. He does not appear septic and his labs are near his baseline with the exception of elevated ALP. No leukocytosis. He is afebrile. He is slightly tachycardic but this appears to be his baseline. There is increased discharge from around his drain that is lr/green, and his drain does not appear to be functioning. I discussed these findings with his surgeon, who feels that if he is stable for discharge he can be seen in a couple of days. He asked that I refill his pain medications. I discussed this with the patient, who understands and is comfortable with the plan. Provided return precautions. Consultation : Call Returned at: 16:52 Note: I spoke with Dr. Salmon, the patient's surgeon. He feels that if the patient is nontoxic and stable to be discharged he can be seen in the next few days at [facility]. He told me to tell the patient to expect a call from Rebekah's medical writer. Suggested prescription of pain medication. He also suggested the patient deteriorates prior to his follow-up, he should present directly to [facility]. Discharge & Departure Primary Impression: Draining postoperative wound Encounter type: subsequent encounter Qualified Code: T81.89XD - Other complications of procedures, not elsewhere classified, subsequent encounter Disposition: Home Discharge Condition All VS Reviewed: Yes Condition: Stable Additional Instructions: Evaluation for increased wound drainage in the emergency department. It appears that her wound drainage stopped working, and the drainage around the wound drain has increased. I do not see any indication of a severe infection at this time as your physical exam and labs are fairly normal. I discussed the case with her surgeon, who indicated that he could see you in the next few days. you should expect a call from Rebekah, his medical writer tomorrow. In the meantime I will refill your pain medications and prescription. Please do not drink alcohol or operate a vehicle while taking these medications. Dr. Salmon indicated that if you deteriorate before your follow-up appointment, You should try to go to [facility] for assessment there. However if that is not possible you should return to this emergency department for new or worsening symptoms such as fever, vomiting, cold sweats, feeling ill. Referrals: Gertrudis August DO (PCP) EDSupervising Provider for APC: Fredy Marcelino MD Attending Statement Attending attestation: I saw this patient in conjunction with Deacon Philippe PA-C. I agree with the workup, evaluation, treatment and disposition. Fredy Marcelino MD copies to: Gertrudis August Beck O MD Dec 22, 2016 13:16 Deacon Philippe PA-C Dec 22, 2016 15:00
[2016-12-22 13:18] LABS: MONOCYTES % (AUTO) 16 % (4-12); NEUTROPHILS % (AUTO) 64 % (40-74)
[2016-12-22 13:19] LABS: BASOPHILS % (AUTO) 0 % (0-3); EOSINOPHILS % (AUTO) 0 % (0-5)
[2016-12-22] MEDS ORDERED: Ketorolac 30 mg/mL 2 mL Inj IM ONE (14:50)
[2016-12-22 16:39] VITALS: BP 106/60; PULSE 55; RESP 14; O2SAT 96
[2016-12-22] MEDS ORDERED: HYDR-4003 PO (17:21)
[2016-12-22 17:49] VITALS: BP 101/58; PULSE 92; RESP 16; O2SAT 98
== END 2016-12-22 17:54 | disposition home or self-care (01) ==
LOC: SED 11:00
DX: T81.89XD Other complications of procedures, not elsewhere classified, subsequent encounter (principal); X58.XXXA Exposure to other specified factors, initial encounter; Y93.9 Activity, unspecified; Y99.8 Other external cause status; Y92.9 Unspecified place or not applicable; E11.9 Type 2 diabetes mellitus without complications; Z90.89 Acquired absence of other organs; Z79.4 Long term (current) use of insulin; Z87.19 Personal history of other diseases of the digestive system
CPT/HCPCS: 36415; 80053; 85025; 96372; 99284; J1885

== ENCOUNTER 2017-01-11 23:52 | Emergency (ER) | payer OTHER ==
[~2017-01-11] VITALS: Ht 160 cm; Wt 61.4 kg
[~2017-01-11 23:52] MED LIST changes: -ACET325T51 PO; -CLOT45CR7 EXTERNAL; -METF500T4 PO
[2017-01-11 23:56] VITALS: BP 93/45; PULSE 107; RESP 19; O2SAT 98
--- NOTE | 2017-01-12 00:03 | ED.REPORT ---
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 Patient is found to have 300cc of blood in his drainage bag on arrival to the ED. Patient reports some associated abdominal pain and presents to the ED pale and hypotensive. Patient was admitted to [facility] earlier this year, with dual modality drainage of his pseudocyst at the beginning of December. He was discharge from their facility on December 05. Patient was then readmitted to [facility] on December 06- after he developed a fever and abdominal pain. He was ultimately transferred to [facility]. His care is managed by Dr. Salmon (GI) at [facility]. Patient denies a fever , nausea, or vomiting. Nursing Notes Stated Complaint: POSS LOSING LOTS OF BLOOD Chief Complaint: General Complaint Nursing Notes Reviewed: Yes Allergies: Coded Allergies: No Known Allergies (Verified Allergy, Unknown, 10/19/16) Scheduled PRN Hydrocodone-Acetaminophen 5-325 mg (Hydrocodone-Acetaminophen 5-325 mg) 1 Each Tablet 1 TABLET PO Q4H PRN PRN For Pain General Time Seen by MD: 00:00 Chief Complaint Other (blood in surgical drain) Hx Obtained From: Patient Arrived By: Walk-in Sudden in Onset?: No Onset Occurred: 1 - 4 hours ago Symptom Duration: Since onset Location: : Diffuse Quality: Painful Severity: Current: Moderate Severity: Maximum: Moderate Recent Healthcare: Recent doctor visit, Recent hospitalization Similar Sx Previous: No Past Medical History Past Medical History Hx of alcohol abuse Alcoholic liver disease Pancreatitis 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 S/p drainage at [facility] (Dec 2016). Reports: Diabetes mellitus Reports: Depression Past Surgical History 1) 01/27/16: Procedure: Exploratory laparotomy, lysis of adhesions, drainage of intra-abdominal abscess, appendectomy, rigid proctoscopy, flexible sigmoidoscopy Surgeon: Neo Daniel M.D. 2) drain placed for infected pancreatic pseudocust at [facility] (Dec 2016) 2) Endoscopic drainage of his pancreatic psuedocyst at [facility] R hand wound repair Family History noncontributory Smoking History Current Some Day Smoker Social History Alcohol Use: Denies alcohol use Drug Use: Denies drug use, THC Other Social History: Good social support, Local resident Ambulatory Status Independent Review of Systems Constitutional: Denies: Chills, Fever GI: Reports: Abdominal pain, Denies: Nausea, Vomiting Complete sys rev & neg: except as marked. Hematologic: Reports Bleeding, Denies Bruising Physical Exam Initial Vital Signs Vital Signs (First) Date Time Temp Pulse Resp B/P Pulse Ox O2 Delivery O2 Flow Rate FiO2 01/11/17 23:56 36.7 107 19 93/45 98 Room Air 01/12/17 00:49 2 Initial VS: Reviewed, Vital signs abnormal Head / Eyes: Atraumatic, Normocephalic, PERRL ENT: Conjunctiva normal, No scleral icterus Neck: Supple, Full range of motion Extremities: Vascular intact, Neuro intact, No swelling Skin: Warm, Dry, No cyanosis Neurologic: Alert, Oriented, Nonfocal Psychiatric: Mood/affect normal, Behavior normal, Normal thought content General/Constitutional: Awake, Alert Appearance / Presentation: Positive: Pale Respiratory / Chest: Breath sounds NL, Breath sounds = bilat, No respiratory distress, No rales, No rhonchi, No wheezing Cardiovascular: Regular rhythm, Heart sounds NL, No murmurs Heart Rate / Rhythm: Positive: Tachycardia Abdomen: Soft, Non-tender Drain site right abdomen, below costal margin. Drain bag is full of blood. Back: Not examined Interpretation & Diagnostics Lab Results Interpretation Result Diagram: 01/12/17 0005 01/12/17 0005 Test 01/12/17 00:05 01/12/17 00:06 White Blood Count 13.3th/mm3 (3.8-10.1) Red Blood Count 4.00mil/mm3 (4.40-5.80) Hemoglobin 10.5g/dL (13.8-17.2) Hematocrit 32.5% (41.0-50.0) Mean Corpuscular Volume 81fL (81-100) Mean Corpuscular Hemoglobin 26.3pg (27.0-35.0) Mean Corpuscular Hemoglobin Concent 32.3% (32.0-37.0) Red Cell Distribution Width 13.3% (12.3-15.4) Platelet Count 446bil/L (150-400) Neutrophils (%) (Auto) 59.4% (40-74) Lymphocytes (%) (Auto) 29.6% (14-46) Monocytes (%) (Auto) 8.4% (4-12) Eosinophils (%) (Auto) 2.2% (0-5) Basophils (%) (Auto) 0.4% (0-3) Prothrombin Time 11.4sec (8.1-12.5) Prothromb Time International Ratio 1.06ratio Sodium Level 134mEq/L (134-144) Potassium Level 3.2mEq/L (3.5-5.2) Chloride Level 94mEq/L (97-108) Carbon Dioxide Level 24mmol/L (18-29) Blood Urea Nitrogen 7mg/dL (6-20) Creatinine 0.62mg/dL (0.76-1.27) Estimat Glomerular Filtration Rate 162mL/min (>59) Glucose Level 216mg/dL (60-99) Calcium Level 8.5mg/dL (8.5-10.1) Magnesium Level 1.9mg/dL (1.6-2.6) Total Bilirubin 0.5mg/dL (0.0-1.2) Aspartate Amino Transf (AST/SGOT) 13U/L (0-50) Alanine Aminotransferase (ALT/SGPT) 14U/L (0-44) Alkaline Phosphatase 156U/L (25-150) Total Protein 7.3g/dL (6.4-8.4) Albumin 3.3g/dL (3.4-5.0) Lipase 11U/L (13-60) Hold Sommers Top Tube Received (Received) Lab Results Interpretation: Elevated white blood count, hypokalemia, anemia, and elevated nonfasting glucose. ECG Interpretation ECG Interpretation: Sinus tachycardia, Rate 115 Time: 01:15 Interpreted by: ED physician Normal ECG Interpretation: No acute ischemic changes CT Abd / Pelvis Interpretation CONCLUSION: 1. No contrast extravasation is identified. 2. 12 x 6 cm collection of fluid and gas adjacent to the head and body of the pancreas. A surgical drain terminates within this collection. This collection communicates with the body of the stomach via a fistulous or prior drainage time. 3. 5.5 x 3.8 cm fluid collection adjacent to pancreatic tail consistent with abscess or pseudocyst. 4. Moderate wall thickening of the distal stomach and proximal duodenum consistent with gastritis and duodenitis, 5. Mild wall thickening of the urinary bladder. Query cystitis. 6. Pigtail catheter fragments measuring 5 cm in length are in the stomach and small bowel. 7. Gastric Varices. Radiologist: Fazal Mcginnis MD 01/12/2017 - 2:16:31 AM PDT Study type: Abdominal CT IV contrast Interpretation / Wet Read by: Interpret - Radiologist Re-Eval/Medical Decision Med Decision/Clinical Course 32-year-old male who has had a drain placed in a pancreatic pseudocyst. Several hours ago the drain began to collect blood in the bag is now completely fall. He is hypotensive and tachycardic. Fluid resuscitation was started and he was given a unit of O- blood. His vital signs improved. He was initially typed and crossed for 2 units but antibody screen was positive. We did not give the second unit of O- and it will take some time to get another unit typed and crossed. The blood plate except information about his incompatibility to the [facility] blood [place]. Dr. Crocker was consulted and came to the emergency room to assist with this patient's treatment and evaluation. Dr. New was consulted concerning IR, but did not feel we were cryptic handle that here. The patient stabilized and arrangements were finalized for his transfer to [facility] by Dr. Crocker. Abdominal CT angiogram did not show any continued bleeding at the present time. The patient developed a low-grade fever at 38.2. He was given broad antibiotic coverage with Zosyn. He was transferred to [facility] for definitive treatment. Re-Evaluation/Progress #1: Time of Eval: 01:05 Re-Evaluation/Progress Note: Rechecked the patient. He remains stable. Re-Evaluation/Progress #2: Time of Eval: 01:36 Re-Evaluation/Progress Note: Rechecked the patient, who is now back from CT. Dr. Crocker has arranged for the patient to be transferred to [facility]. Patient understands and agrees with this plan. All questions were addressed. Consultation #1: Referral / Consult Name: Anjum Crocker MD Consulted With: Surgeon Call Returned at: 00:00 Note: Spoke with Dr. Crocker, surgeon, about the patient's case. He recommends consult with radiology. Start blood tranfusion. He will come evaluate the patient. Consultation #2: Referral / Consult Name: Nesha Drake MD Consulted With: On-call physician (Radiology) Call Returned at: 00:13 Note: Spoke with Dr. Drake, interventional radiology, about the patient's case. She suggests transfer to [facility]. Consultation #3: Referral / Consult Name: Anjum Crocker MD Consulted With: Surgeon Call Returned at: 00:27 Note: Dr. Crocker is present in the ED, evaluated the patient together. He suggests a CT Angio. He will call [facility] to arrange for possible transfer. Counseled Regarding: Diagnosis, Lab results, Need for transfer Patient Discharge & Departure Primary Impression: Intra abdominal hemorrhage Disposition: Transfer, Acute Care Facility Receiving Hospital: [facility] Transfer Accepted: Yes Transfer Accepted at: 01:30 Transfer Reason: Higher level of care Spoke with: Attending physician (Dr. Erasmo Alberts) Patient Status: Stable for transfer Patient Informed: Yes Discharge Condition All VS Reviewed: Yes Condition: Stable Referrals: Gertrudis August DO (PCP) Crit Care Except Billable Proc Time Spent: 30-74 minutes Services Performed: Patient management by me, Time spent at bedside, Reviewing test results, Reviewing imaging, Discussing patient care, Documentation in record, Time with fam/surrogate Critical Care Notes: One-on-one management of hemorrhagic shock with transfusion with emergent transfer the patient to [facility] CCU. Scribe Attestation Portions of this note were transcribed by Kalli Angel. I, Dr. Louis personally performed the history, physical exam and medical decision-making; I reviewed and confirmed the accuracy of the information in the transcribed note. Signed by: Keisha Elliott, 01/12/2017 0257 copies to: Gertrudis August Howard L MD Jan 12, 2017 00:03 Kalli Angel Jan 12, 2017 00:11
[2017-01-12 00:18] LABS: BASOPHILS % (AUTO) 0.4 % (0-3); EOSINOPHILS % (AUTO) 2.2 % (0-5); MONOCYTES % (AUTO) 8.4 % (4-12); Mean Corpuscular Hemoglobin 26.3 pg (27.0-35.0); Mean Corpuscular Volume 81 fL (81-100); NEUTROPHILS % (AUTO) 59.4 % (40-74); Platelet Count 446 bil/L (150-400)
[2017-01-12] MEDS ORDERED: Ondansetron 2 mg/mL 2 mL Inj IVPUSH PRN (00:30)
[2017-01-12 00:34] LABS: INR 1.06 ratio
[2017-01-12] MEDS: HYDROmorphone 0.5 mg/0.5 mL iSecure Syringe IVPUSH PRN ×2 (00:38→02:02)
[2017-01-12 00:49] VITALS: BP 101/55; PULSE 110; RESP 22; O2SAT 100
[2017-01-12] MEDS ORDERED: Piperacillin-Tazo 3.375 Gm Inj 3.375 GM in Dextrose 5% Minibag Plus 50 ML IV ONE (01:40)
[2017-01-12 03:22] VITALS: BP 106/67; PULSE 121; RESP 22; O2SAT 92
--- NOTE | 2017-01-12 04:09 | CONS ---
[address] [address] CONSULTATION REPORT PATIENT: HOWIE REMY : 1985 MR#: [id number] ADMIT: 01/11/2017 JOB ID: [id number] DATE OF SERVICE: 01/12/2017 CHIEF COMPLAINT: A 32-year-old gentleman with bleeding from abdominal drain. Seen in consultation at the request of Martell Louis MD. HISTORY OF PRESENT ILLNESS: The patient is a 32-year-old male with necrotizing pancreatitis, with an infected pancreatic pseudocyst, who is being managed at [facility], [place] with dual modality drainage with Gastroenterology and Interventional Radiology. He has problems with chronic abdominal pain, and he did not notice any new pain, but after being recumbent watching TV tonight, when he stood up, a bunch of blood filled up his entire drain bag, prompting him to come into the emergency department today. In the emergency department, he was found to have a blood pressure in the 90s systolic, with heart rate in the 110s. Dr. Louis called me for surgical consultation. OTHER MEDICAL PROBLEMS: 1. Alcoholic liver disease. 2. Pancreatitis. 3. Pancreatic pseudocyst. 4. Diabetes mellitus. 5. Depression. PRIOR OPERATIONS: 1. Laparotomy with lysis of adhesions, Drainage of intra-abdominal abscess, Appendectomy, Rigid proctoscopy and sigmoidoscopy by Dr. Daniel in January 2016. 2. Endoscopic and interventional radiology guided drainage of pancreatic pseudocyst at [facility]. 3. Right hand wound repair. SOCIAL HISTORY: He does smoke. He lives in [place]. REVIEW OF SYSTEMS: Twelve point review of systems negative other than the pertinent positives noted in the history of present illness and other medical problems. FAMILY HISTORY: Unknown because he was adopted. INVESTIGATIONS: Labs from January 12, 2017, WBC 13.3, hemoglobin 10.5, platelet count 446. Glucose 216, alkaline phosphatase 156, albumin 3.3. INR 1.06. CT angiogram of the abdomen showed the higher drain in his right side of the abdomen going immediately posterior to the superior mesenteric vasculature, but I did not see any obvious intra-abdominal contrast extravasation. There was a residual abscess with air around the end of the drain. PHYSICAL EXAM: A 32-year-old male, in no other acute distress. BMI 24. Temperature 36.7, pulse 115, blood pressure 101/55, saturating 100% on 2 L. Eyes: Pale. Normal pupils. Ears, nose and throat: Normal external appearance. Respiratory: Normal effort, clear to auscultation. Cardiovascular: Tachycardic but regular. Gastrointestinal: Abdomen soft, with right-sided abdominal drain, with blood. His drain was clamped. Musculoskeletal: Normal strength in extremities. Neurologic: No gross deficits. Psych: Alert, appropriate. ASSESSMENT AND PLAN: Bleeding from a percutaneous drain of a pancreatic pseudocyst. This could be the herald bleed with further deterioration soon. I discussed the case with Dr. Aubrey Alberts at [facility], also Dr. Ashlie Houser in General Surgery at [facility]. We gave him 1 unit of O negative transfused RBCs, but he has been hemodynamically stable and there was a question of a transfusion reaction with some fever and some antibodies detected in the blood bank, so we are going to hold off on further transfusions and transfer him to [facility] for further care. BEVERLY
--- NOTE | 2017-01-12 12:08 | DRSVH ---
PROCEDURE: ANGIO ABD/PELVIS W/CON INDICATIONS: bleeding from pancreatic drain TECHNIQUE: After the administration of intravenous contrast, 2 and 5 mm sections acquired from the diaphragm to the iliac crests. 3-dimensional maximum intensity projection (MIP) coronal and sagittal reformats, a nd/or 3-dimensional volume rendering reformatting was then performed. For radiation dose reduction, the following was used: automated exposure control. COMPARISON: [facility], CT, CT ABD PELVIS W CON, 09/10/2016, 16:51. [facility], CT, CT ABD PELVIS W CON, 11/13/2016, 14:37. [facility], CT, CT ABD PELVIS W CON, 01/2017, 18:24. FINDINGS: Image quality: Excellent. Abdominal aorta: Abdominal aorta is normal in caliber and enhancement. No aneurysm or dissection. The celiac trunk, superior mesenteric artery and inferior mesenteric artery are patent. There is single renal artery on each side, demonstrating normal caliber and enhancement. The aortic bifurcation is no rmal. The common, internal and external iliac arteries are normal. No extravasation of contrast. Extravascular tissues: There is a percutaneous drainage catheter in the right upper quadrant. The ti p of the catheter is within the abscess cavity, which has slightly decreased in size compared to 12/06. The main portion of the in situ abscess cavity measures 3.8 cm AP x 8.9 cm transverse x 4.1 c m cephalocaudal; previously it measured 7.2 x 12.2 x 6.8 cm on 12/06/2016. There are multiple ring enh ancing fluid collections in the upper abdomen adjacent to the pancreas, consistent with pancreatic ps eudocysts. For example, there is a 3.7 x 4.8 cm ring-enhancing pleural collection near the pancreatic tail. A 4.8 x 5.3 cm ring enhancing collection is seen near the pancreatic head just posterior to th e gallbladder. This collection demonstrates an air fluid level, suspicious for an infected pseudocyst . Pancreas is edematous. There is an area of in decreased enhancement in the tail of the pancreas, susp icious for pancreatic necrosis. Heart size is normal. Liver and spleen are normal in size and enhancement. A 2 cm diameter soft tis mary nodule below the spleen is most likely a splenule. Gallbladder is normal. Biliary system is non dilated. No adrenal nodules. Kidneys are normal in size and enhancement, without hydronephrosis. N on-opacified bowel loops demonstrate normal wall thickness and caliber. No free fluid or air. There are enlarged retroperitoneal or mesenteric nodes. Enlarged gastrohepatic ligament lymph nodes are al so noted. No ventral hernias. No suspicious bony abnormalities. No vertebral body compression fract ures. There are bibasilar infiltrates suspicious for pneumonia. IMPRESSION: 1. No active contrast extravasation to suggest vessel injuries. 2. A percutaneous drain within a peripancreatic abscess. The abscess cavity has slightly decreased in size with significant residual collection. 3. Multiple pancreatic pseudocysts in upper abdomen. A pseudocyst posterior to the gallbladder has an air-fluid level, suspicious for a infected pseudocyst. 4. Pancreatitis and possible pancreatic necrosis in the tail of the pancreas. 5. Retroperitoneal and mesenteric lymphadenopathy, most likely reactive. This finding is, however, n onspecific and requires clinical correlation and follow up. Dictated by: Bert Moncada M.D. on 01/12/2017 at 11:49 Transcribed by: FESTUS on 01/12/2017 at 12:08 Approved by: Bert Moncada M.D. on 01/12/2017 at 19:49
== END 2017-01-12 02:15 | disposition short-term general hospital (02) ==
LOC: SED 23:52
DX: R58 Hemorrhage, not elsewhere classified (principal); Z87.19 Personal history of other diseases of the digestive system; E11.9 Type 2 diabetes mellitus without complications; F17.200 Nicotine dependence, unspecified, uncomplicated
CPT/HCPCS: 36415; 36430; 74174; 80053; 83690; 83735; 85025; 85610; 86870; 86922; 93005; 96365; 96375; 96376; 99291; J1170; J2405; J2543; P9021; Q9967

== ENCOUNTER 2017-02-17 17:14 | Observation (INO) | payer OTHER ==
[~2017-02-17] VITALS: Ht 160 cm; Wt 56.5 kg
[2017-02-17 19:01] VITALS: BP 116/83; PULSE 131; RESP 18; O2SAT 97
--- NOTE | 2017-02-17 19:44 | ED.REPORT ---
HPI-Abd Pain M Under 40 Date of Service Feb 17, 2017 ED Provider: Song Chen DO Patient is a 32 year old male with a history of alcohol abuse with pancreatitis and an infected pancreatic pseudocyst s/p plasma exch w/ walled off pancreatic necrosis who presents to the ED onset 1-2 hours prior to arrival. The patient states that he was walking around when the pain started and believes that he simply pushed himself too far. Patient has not noted any blood in his drain and states that his drainage is its usual color. Patient was admitted to [facility] earlier this year, with dual modality drainage of his pseudocyst at the beginning of December. Patient was last seen in the ED on 01/12 and was transferred to [facility] due to intra abdominal hemorrhage. His care is managed by Dr. Salmon (GI) at [facility]. Patient denies a fever, nausea, or vomiting. Patient adamantly denies drinking alcohol. Nursing Notes Stated Complaint: PAIN Chief Complaint: Male Abdominal Pain Nursing Notes Reviewed: Yes Allergies: Coded Allergies: No Known Allergies (Verified Allergy, Unknown, 10/19/16) Scheduled Gabapentin (Gabapentin) 300 Mg Capsule 300 MG PO TID Insulin Glargine (Lantus U100 Insulin Vial) 100 Unit/Ml Vial 0 SUBQ HS Metoprolol Tartrate (Metoprolol Tartrate) 25 Mg Tablet 12.5 MG PO BID Scheduled PRN Oxycodone (Roxicodone) 5 Mg Tablet 5 MG PO Q6H PRN PRN For Pain Trazodone (Trazodone) 50 Mg Tablet 25 MG PO HS PRN PRN For Insomnia General Time Seen by MD: 19:44 Chief Complaint Abdominal pain Hx Obtained From: Patient Arrived By: Walk-in Sudden in Onset?: Yes Onset Occurred: 1 - 4 hours ago Symptom Duration: Since onset Location: : Epigastric Quality: Painful Severity: Current: Moderate Severity: Maximum: Moderate Recent Healthcare: No recent doctor visit, No recent hospitalization Similar Sx Previous: Yes Past Medical History Past Medical History Notes: Followed by Dr. Salmon (GI) at [facility] Past Medical History Hx of alcohol abuse (denies alcohol consumption) Alcoholic liver disease Pancreatitis 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 S/p drainage at [facility] (Dec 2016). Reports: Diabetes mellitus Reports: Depression Past Surgical History 1) 01/27/16: Procedure: Exploratory laparotomy, lysis of adhesions, drainage of intra-abdominal abscess, appendectomy, rigid proctoscopy, flexible sigmoidoscopy Surgeon: Neo Daniel M.D. 2) drain placed for infected pancreatic pseudocust at [facility] (Dec 2016) 2) Endoscopic drainage of his pancreatic psuedocyst at [facility] R hand wound repair Family History noncontributory Smoking History Current Some Day Smoker Social History Alcohol Use: Denies alcohol use Drug Use: Denies drug use, THC Other Social History: Good social support, Local resident Ambulatory Status Independent Review of Systems Review of Systems Note: + denies changes in drainage Constitutional: Denies: Chills, Fever GI: Reports: Abdominal pain, Denies: Nausea, Vomiting Complete sys rev & neg: except as marked. Physical Exam Initial Vital Signs Vital Signs (First) Date Time Temp Pulse Resp B/P Pulse Ox O2 Delivery O2 Flow Rate FiO2 02/17/17 19:01 36.0 131 18 116/83 97 Room Air Initial VS: Reviewed Head / Eyes: Atraumatic, Normocephalic, PERRL ENT: Conjunctiva normal, No scleral icterus Neck: Supple, Full range of motion Skin: Warm, Dry, No cyanosis Neurologic: Alert, Oriented, Nonfocal Psychiatric: Mood/affect normal, Behavior normal, Normal thought content General/Constitutional: Awake, Alert, No acute distress thin, smells of EtOH Respiratory / Chest: Breath sounds NL, Breath sounds = bilat, No respiratory distress Cardiovascular: Regular rhythm, Heart sounds NL Heart Rate / Rhythm: Positive: Tachycardia Abdomen: Soft, No rebound Tenderness/Guarding/Rebound: Positive: Tender epigastric, Negative: Rigid to palpation Drain in place, brown/yellow drainage. No signs of infection at the incision site. Back: Painless range of motion Interpretation & Diagnostics Lab Results Interpretation Result Diagram: 02/17/17195402/17/171954 Test 02/17/17 00:00 02/17/17 19:55 White Blood Count 11.9th/mm3 (3.8-10.1) Red Blood Count 5.06mil/mm3 (4.40-5.80) Hemoglobin 13.7g/dL (13.8-17.2) Hematocrit 41.0% (41.0-50.0) Mean Corpuscular Volume 81.0fL (81-100) Mean Corpuscular Hemoglobin 27.1pg (27.0-35.0) Mean Corpuscular Hemoglobin Concent 33.4% (32.0-37.0) Red Cell Distribution Width 15.1% (12.3-15.4) Platelet Count 313bil/L (150-400) Neutrophils (%) (Auto) 69.2% (40-74) Lymphocytes (%) (Auto) 21.0% (14-46) Monocytes (%) (Auto) 8.4% (4-12) Eosinophils (%) (Auto) 0.6% (0-5) Basophils (%) (Auto) 0.5% (0-3) Prothrombin Time 9.6sec (8.1-12.5) Prothromb Time International Ratio 0.90ratio Sodium Level 134mEq/L (134-144) Potassium Level 4.0mEq/L (3.5-5.2) Chloride Level 91mEq/L (97-108) Carbon Dioxide Level 17mmol/L (18-29) Blood Urea Nitrogen 8mg/dL (6-20) Creatinine 0.60mg/dL (0.76-1.27) Estimat Glomerular Filtration Rate 168mL/min (>59) Glucose Level 386mg/dL (60-99) Calcium Level 10.0mg/dL (8.5-10.1) Total Bilirubin 0.6mg/dL (0.0-1.2) Aspartate Amino Transf (AST/SGOT) 13U/L (0-50) Alanine Aminotransferase (ALT/SGPT) 9U/L (0-44) Alkaline Phosphatase 210U/L (25-150) Total Protein 10.0g/dL (6.4-8.4) Albumin 4.7g/dL (3.4-5.0) Triglycerides Level 306mg/dL (0-149) Lipase 14U/L (13-60) Hold Sommers Top Tube Received (Received) Alcohols 315mg/dL (0-10) CT Abd / Pelvis Interpretation IMPRESSION: Inflammtory changes surrounding the pancreast with fluid collections in the lesser sac extending towards the splenic tip and the pancreatic head. There is a percutaneous catheter from the posterior right approach with tip in the lesser sac. There is a 2nd catheter extending from the stomach into the lesser sac. Radiologist: Robby Sawant MD 02/17/2017 - 10:37:15 PM PDT Study type: Abdominal CT no contrast Interpretation / Wet Read by: Interpret - Radiologist Re-Eval/Medical Decision Source of Hx: Old records Re-Evaluation/Progress #1: Time of Eval: 22:45 Re-Evaluation/Progress Note: Rechecked the patient. He remains intoxicated. Discussed his alcohol use. He was informed of the results of his CT scan and need for hospital admission. Patient understands this plan. All questions were addressed. Re-Evaluation/Progress #2: Time of Eval: 00:05 Re-Evaluation/Progress Note: Patient will be admitted to [facility] for further care. Discussed the need for the patient to stop drinking. Consultation #1: Referral / Consult Name: Claudia Potts DO Consulted With: Hospitalist Call Returned at: 22:51 Psychologist Experimental: Agrees with eval, Agrees with plan Note: Spoke with Dr. Potts, hospitalist, about the patient's case. She requests a consult with GI at [facility]. Consultation #2: Call Returned at: 23:30 Note: Spoke with Dr. Salmon, [facility], about the patient's case. Treat him like a standard pancreatitis. If his condition deteriorates, call [facility] for transfer. Flush his drain with 20cc saline 3x daily. Patient will need alcohol counseling. Consultation #3: Referral / Consult Name: Claudia Potts DO Consulted With: Hospitalist Call Returned at: 00:03 Psychologist Experimental: Will see patient, Agrees with eval, Agrees with plan, Accepts admit Note: Spoke with Dr. Potts, hospitalist, who agrees to accept admit. Counseled Regarding: Diagnosis, Lab results, Need for admission Patient Discharge & Departure Primary Impression: Acute pancreatitis Pancreatitis type: alcohol induced Acute pancreatitis complication: unspecified Qualified Code: K85.20 - Alcohol induced acute pancreatitis without necrosis or infection Additional Impressions: Alcohol intoxication Complication of substance-induced condition: uncomplicated Qualified Code: F10.120 - Alcohol abuse with intoxication, uncomplicated Alcohol abuse Pancreatic pseudocyst Disposition: ADMITTED TO HOSPITAL Discharge Condition All VS Reviewed: Yes Condition: Stable Referrals: Gertrudis August DO (PCP) Scribe Attestation Portions of this note were transcribed by Kalli Anegl. I, Dr. Chen personally performed the history, physical exam and medical decision-making; I reviewed and confirmed the accuracy of the information in the transcribed note. Signed by: Keisha Elliott, 02/18/2017 0034 copies to: Gertrudis August Todd P DO Feb 17, 2017 19:44 Kalli Angel Feb 17, 2017 19:53
[2017-02-17 20:04] LABS: BASOPHILS % (AUTO) 0.5 % (0-3); EOSINOPHILS % (AUTO) 0.6 % (0-5); MONOCYTES % (AUTO) 8.4 % (4-12); Mean Corpuscular Hemoglobin 27.1 pg (27.0-35.0); NEUTROPHILS % (AUTO) 69.2 % (40-74); Platelet Count 313 bil/L (150-400)
[2017-02-17] MEDS: Ondansetron 2 mg/mL 2 mL Inj IVPUSH PRN (20:11)
[2017-02-17] MEDS: HYDROmorphone 0.5 mg/0.5 mL iSecure Syringe IVPUSH PRN ×3 (20:12→22:37)
[2017-02-17 20:20] LABS: INR 0.9 ratio
[2017-02-17 21:52] VITALS: BP 118/68; PULSE 119; RESP 20; O2SAT 98
[2017-02-17] MEDS ORDERED: 0.9% Sodium Chloride 1,000 ML IV SCH ×2 (22:55→23:30)
[2017-02-18] VITALS (8 sets, daily range): BP systolic 120–157; BP diastolic 59–100; PULSE 88–126; RESP 15–18; O2SAT 94–100
[2017-02-18] MEDS: Ondansetron 2 mg/mL 2 mL Inj IVPUSH PRN ×6 (00:14→19:40)
[2017-02-18] MEDS ORDERED: Polyethylene Glycol (PEG) 17 Gm Powder PO PRN (00:15)
[2017-02-18] MEDS: HYDROmorphone 0.5 mg/0.5 mL iSecure Syringe IVPUSH PRN (00:15)
[2017-02-18] MEDS ORDERED: Alum-Mag Hydrox-Simeth 30 mL Suspension PO PRN (00:15)
[2017-02-18] MEDS ORDERED: Thiamine Inj 100 MG, Folic Acid Inj 1 MG, Magnesium Sulfate 50% Inj 2 GM, Multivitamins... IV ONE ×5 (00:15)
[2017-02-18] MEDS ORDERED: INSU100V7 SUBQ ×2 (00:16→07:37)
[2017-02-18] MEDS ORDERED: TRAZ-115 PO (00:16)
[2017-02-18] MEDS ORDERED: GABA-502 PO ×2 (00:16→01:51)
[2017-02-18] MEDS ORDERED: OXYC-474 PO ×2 (00:16→07:39)
[2017-02-18] MEDS ORDERED: METO25TA6 PO (00:17)
--- NOTE | 2017-02-18 00:25 | PCM.HPMED ---
Subjective Date of Service Feb 18, 2017 Primary Provider: Admitting Physician: Primary Care Physician: Gertrudis August DO Attending Physician: Admit Status: From the Emergency Department Chief Complaint: abdominal pain History of Present Illness: 31yoM with past medical history of daily alcohol consumption, pancreatitis 2/2 ETOH and hypertriglyceridemia s/p plasma exchange with course complicated by subsequent walled of pancreatic necrosis (WOPN) now s/p drainage, recent intraabdominal hemorrhage (transferred from [facility] ED to 01/12) admitted with worsening abdominal pain. Pain began 1-2 hours prior to admission and as per ED documentation and patient he believes " he has pushed himself too far". He has been experiencing non- radiating 8/10 left lower abdominal pain / pressure which is different in characteristic and location from prior episode of pancreatitis. Nothing has relieved the discomfort. He denies fevers, chills, nausea, vomiting, changes in drainage from pancreatic drain, changes in bowel movements or urination. 2 days ago pancreatic drain was replaced however this is the only recent change aside from acute alcohol consumption Patient states that due to increased social stressors (i.e. loss of home, friend ) he decided to start drinking. He has been sober over the past 9 months and understands the consequences of drinking especially in the setting of pancreatitis and WOPN. Dr. Salmon (GI) at [facility] was contacted prior to admission and plan for admission with observation at [facility] with transfer if patient acutely worsens. Review of Systems: complete review of systems obtained. positive as per HPI otherwise negative Allergies Coded Allergies: No Known Allergies (Verified Allergy, Unknown, 10/19/16) PMH Hx of alcohol abuse Alcoholic liver disease Intraabdominal abscess Torn MCL Peripheral neuropathy a/w trauma Hypertriglyceridemia Pancreatic pseudocyst / WOPN s/p dual modality drainage Surgical History 01/27/16: Procedure: Exploratory laparotomy, lysis of adhesions, drainage of intra-abdominal abscess, appendectomy, rigid proctoscopy, flexible sigmoidoscopy Surgeon: Neo Daniel M.D. dual modality drainage of pancreatic pseudocyst Family History unknown. patient is adopted Social History Hx Alcohol Use: Yes (sober for 6 mths) Hx Substance Use: Yes (medical marijuana) Smoking Status: Current Some Day Smoker Exam Vital Signs Vital Sign - Last Date Time Temp Pulse Resp B/P Pulse Ox O2 Delivery O2 Flow Rate FiO2 02/17/17 21:52 119 20 118/68 98 Room Air 02/17/17 19:01 36.0 Exam General: Alert, Oriented x3, Cooperative, No acute Distress Eyes: PERRLA, Scleral Anicteric Mouth: Mouth Normal, Mucous Membranes dry/[place] Neck: Supple, no Thyromegaly, trachea central. Chest & Lungs: CTA bilat, good resp effort, no rhonchi wheeze or rales Cardiovascular: Normal S1, Normal S2, No Murmurs/Rubs/Gallops, tachy/ reg rhythm , (unable to assess JVD, no peripheral edema) Pulses: Radial (present and equal), Dorsalis Pedi (present and equal) Abdomen: Soft, tender left lower quadrant, no rebound tenderness, Non-distended , Normoactive bowel tones. right flank drain in place, drainage bag empty, dressing CDI, midline incision well healed Musculoskeletal: Unremarkable. Normal range of motion, no swollen or erythematous joints Extremities: No edema, no cyanosis, no clubbing. Skin: No rashes. Warm and dry, no erythematous areas Neurological: Grossly neurologically intact, Normal Speech, Sensation Intact Lymphatic: Lymph nodes Cervical and Axillary not palpable. Lab and Diagnostics Result Diagram: 02/17/17195402/17/171954 X-Rays, CTs and MRIs IMPRESSION: Inflammtory changes surrounding the pancreast with fluid collections in the lesser sac extending towards the splenic tip and the pancreatic head. There is a percutaneous catheter from the posterior right approach with tip in the lesser sac. There is a 2nd catheter extending from the stomach into the lesser sac. Radiologist: Robby Sawant MD 02/17/2017 - 10:37:15 PM PDT Study type: Abdominal CT no contrast Interpretation / Wet Read by: Interpret - Radiologist Assessment & Plan 31yoM with past medical history of daily alcohol consumption, pancreatitis 2/2 ETOH and hypertriglyceridemia s/p plasma exchange with course complicated by subsequent walled of pancreatic necrosis (WOPN) now s/p drainage admitted with worsening abdominal pain Abdominal pain, acute -most likely secondary to recurrent pancreatitis, WOPN, drain placement -different in characteristic from prior episodes of pancreatitis, LLQ pain -CT scan unrevealing -will treat for chronic pancreatitis, NPO, NS 200cc/hr -0.5-1mg IV hydromorphone q4HR PRN, may increase if needed -low threshold to start IV abx Metabolic acidosis, acute -unclear etiology -lactic acid pending, urinalysis pending Leukocytosis, acute -secondary to pancreatitis vs WOPN -continue to monitor Alcohol dependence, acute -patient has been struggling with ETOH use over the past 2 days however sober for 9 months prior to that. -recent increase in social stressors with recent homelessness -elevated levels on admission -[facility] protocol -SW referral Elevated glucose, acute -no history of diabetes however significant pancreatic pathology -hgbA1c ordered and pending -low correctional sliding scale ordered WOPN, chronic -s/p dual modality drainage -treatment as above -flush drain with 20cc sterile saline BID, RN communication ordered -monitor I&Os Pain Evaluation: Adequate Pain Control GI Prophylaxis: Proton Pump Inhibitor VTE Prophylaxis: Sub-Q Heparin (Unfractionated) Resuscitation Status: CPR: Attempt Resuscitation Claudia Potts DO Feb 18, 2017 00:25
[2017-02-18] MEDS ORDERED: HYDROmorphone 0.5 mg/0.5 mL iSecure Syringe IVPUSH PRN (01:00)
[2017-02-18] MEDS: 0.9% Sodium Chloride 1,000 ML IV SCH ×3 (01:22→12:06)
--- NOTE | 2017-02-18 01:31 | NUR ---
Admit Note Pt arrived to room 3016 at 0130. Alert and oriented, pain 04/11. CIWA score 1.
[2017-02-18] MEDS ORDERED: HYDROmorphone 1 mg/mL Inj IVPUSH PRN (01:50)
[2017-02-18] MEDS: HYDROmorphone 1 mg/mL Inj IVPUSH PRN ×4 (03:00→12:07)
[2017-02-18 06:40] LABS: BASOPHILS % (AUTO) 0.3 % (0-3); EOSINOPHILS % (AUTO) 1.3 % (0-5); MONOCYTES % (AUTO) 10.9 % (4-12); Mean Corpuscular Hemoglobin 27.6 pg (27.0-35.0); Mean Corpuscular Volume 83.4 fL (81-100); NEUTROPHILS % (AUTO) 69.7 % (40-74); Platelet Count 229 bil/L (150-400)
[2017-02-18] MEDS: Multivit-Miner-Folic Acid-Iron Tablet PO SCH (07:36)
--- NOTE | 2017-02-18 08:46 | DRSVH ---
PROCEDURE: CT ABDOMEN AND PELVIS WITH CONTRAST ([id number]) INDICATIONS: intoxicated, pain, pancreatitis TECHNIQUE: After the administration of intravenous contrast, 5 mm thick sections acquired from the diaphragm to the symphysis. 5 mm coronal and sagittal reformats were acquired. For radiation dose reduction, the following was used: automated exposure control, adjustment of mA and/or kV according to patient siz e. COMPARISON: [facility], CT, CT ANGIO ABD PELVIS, 01/12/2017, 0:13. [facility], CT, CT ABD PELVIS W CON, 11/13/2016, 14:37. [facility], CT, CT ABD PELVIS W CON, 09/10, 16:51. [facility], CT, CT ABD PELVIS W CON, 08/05/2016, 0:00. [facility], CT, CT ABD PELVIS W CON, 02/16/2016, 10:00. [facility], CT, CT ABD PELVIS W CON, , 12:29. [facility], CT, CT ABD PELVIS W CON, 01/26/2016, 16:23. [facility], CT, CT ABD PELVIS W CON, 12/06/2016, 18:24. FINDINGS: Image quality: Excellent. ABDOMEN: Lung bases: Lung bases are clear. Heart size is normal. Solid organs: There is overall decreased pancreatic stranding compared to 01/12/2017. The tail of th e pancreas is truncated. There is a cystic structure in the pancreatic tail measuring 3.1 x 2.5 cm, c ompatible with a pancreatic pseudocyst, which is slightly decreased in size (previously 3.7 x 4.8 cm) . There is a cutaneous surgical drain entering from the right posterior flank. The dominant infected ps eudocyst/abscess cavity containing the tip of the percutaneous drainage catheter has significantly de creased in size and nearly resolved. An abscess or infected pseudocyst is noted right of the pancreat ic head behind the gallbladder superior to the surgical drain measuring 2.8 cm transverse, 5.6 cm ant erior-posterior and 5.7 cm craniocaudal, which is minimally changed in size. There is diffuse hepatic fatty infiltration. Liver and spleen are normal in size and enhancement. Ga llbladder appears normal. Biliary system is non dilated. Pancreas enhances normally. No adrenal no dules. Kidneys demonstrate normal size and enhancement, without hydronephrosis. Peritoneum and bowel: There is a fistula with catheter between the posterior wall of the stomach and the previously seen large infected pseudocyst. Gastric wall is thickened. There are gastric varices. Bowel loops demonstrate normal wall thickness and caliber. No free fluid or air. Nodes and vessels: No retroperitoneal or mesenteric adenopathy by size criteria. Aorta and inferior vena cava are normal in size. Miscellaneous: No ventral hernias. PELVIS: Genitourinary: Bladder wall thickness is normal. Miscellaneous: No inguinal hernias or adenopathy. Bones: No suspicious bony lesions. No vertebral body compression fractures. IMPRESSION: 1. Compared to the last CT of 01/12/2017, there is decreased pancreatic stranding. The dominant absces s/infected pseudocyst containing the percutaneous drainage catheter has significantly decreased in si ze and nearly resolved. 2. Minimal change in size of an abscess cavity/infected pseudocyst right and superior to the percutan eous drainage catheter adjacent to the pancreatic head. 3. There appears to be a fistula tract and a catheter between the posterior wall of the stomach and t he previously seen dominant pseudocyst, likely an internal drain. Recommend correlation with operativ e history. 4. Hepatic steatosis. 5. Stomach wall thickening and gastric varices. No significant discrepancy with the deputy chief magistrate radiology preliminary report. Dictated by: Bert Moncada M.D. on 02/18/2017 at 8:06 Transcribed by: FESTUS on 02/18/2017 at 8:46 Approved by: Bert Moncada M.D. on 02/18/2017 at 9:29
[2017-02-18] MEDS: THIAMINE IV SCH ×2 (11:08)
[2017-02-18] MEDS: NS IV SCH ×2 (11:08)
--- NOTE | 2017-02-18 13:50 | NUR ---
Pain/Vomiting Patient has had complaints of 8/10 pain today. 4mg IV Dilaudid has been administered every 3 hours for pain. Medication has been effective to lowering pain to his baseline pain level of 5-6/10. Patient has been vomiting intermittently throughout the day. 8mg IV Zofran has been administered every 4 hours for nausea. Patient states Zofran is slightly helpful, but patient continues to vomit.
[2017-02-18] MEDS: Dextrose 5% 0.45% NaCl 1,000 ML IV SCH (15:53)
[2017-02-19] VITALS (7 sets, daily range): BP systolic 111–130; BP diastolic 70–89; PULSE 68–111; RESP 16–18; O2SAT 95–100
[2017-02-19] MEDS: Dextrose 5% 0.45% NaCl 1,000 ML IV SCH (05:50)
[2017-02-19 06:47] LABS: BASOPHILS % (AUTO) 0.2 % (0-3); EOSINOPHILS % (AUTO) 2.5 % (0-5); MONOCYTES % (AUTO) 11.3 % (4-12); Mean Corpuscular Volume 83.8 fL (81-100); NEUTROPHILS % (AUTO) 62.3 % (40-74); Platelet Count 215 bil/L (150-400)
[2017-02-19 07:02] LABS: Magnesium 1.8 mg/dL (1.6-2.6)
[2017-02-19] MEDS: Multivit-Miner-Folic Acid-Iron Tablet PO SCH (10:06)
[2017-02-19] MEDS: Ondansetron 2 mg/mL 2 mL Inj IVPUSH PRN (10:07)
[2017-02-19] MEDS ORDERED: Glucose 40% Oral Gel 15 Gm Tube PO PRN (10:25)
--- NOTE | 2017-02-19 10:33 | PCM.PNMED ---
Subjective Date of Service Feb 19, 2017 Subjective Overnight: No reported events per nursing. Patient states that he slept well through the night mostly. He still endorsed epigastric pain throughout the night which is controlled with pain medications Today: Patient awake and alert sitting up in bed, states his pain is almost at his baseline though still present at a 5/10. Says that if he goes home he has a safe place living with his friend though does not feel quite ready to go home Exam Vital Signs Vital Sign - Last Date Time Temp Pulse Resp B/P Pulse Ox O2 Delivery O2 Flow Rate FiO2 02/19/17 09:52 36.8 105 16 114/75 99 Room Air Intake and Output 02/18/17 02/18/17 02/19/17 Cumulative From/Thru 15:00 23:00 07:00 02/17/17 19:01 - 02/19/17 06:05 Intake Total 1908 ml 0 ml 4426 ml Output Total 300 ml 1250 ml 2950 ml Balance 1608 ml -1250 ml 1476 ml Intake Oral 0 ml 0 ml 0 ml IV Total 1908 ml 4426 ml Output Urine Total 300 ml 1250 ml 2950 ml # Bowel Movements 0 0 Exam General: No acute distress, well-developed, well-nourished, appropriately interactive, sitting up in hospital bed HEENT: Normocephalic, atraumatic. External ears without defect. Pupils equal, round, and reactive to light and accommodation. Anicteric sclerae, moist conjunctivae, and no lid lag. Oropharynx free of erythema and cobble stoning with moist mucosa. Neck: Supple with full range of motion. No jugular venous distension. No bruits. Cardiovascular: Regular rate and rhythm with no murmurs, rubs, or gallops appreciated Pulmonary: Clear to auscultation bilaterally with no crackles, wheezes, or rhonchi. Normal respiratory effort with no use of accessory muscles. Abdomen: Bowel tones present. Soft, tender to palpation epigastric area and left lower quadrant. Right flank drain in place, drainage bag with an fluid. Dressing intact. Umbilical midline incision present well healed. Extremities: No clubbing, cyanosis, edema, or lymphadenopathy appreciated. Skin: Normal temperature, turgor, and texture Neurological: Cranial nerves grossly intact. Psychiatric: Normal mood and affect. Alert and oriented to person, place, and time. IVs and Medications Medications Reviewed: Medications were reviewed in detail Lab and Diagnostics Result Diagram: 02/19/1715 02/19/1715 X-Rays, CTs and MRIs . CT ABDOMEN AND PELVIS WITH CONTRAST IMPRESSION: 1. Compared to the last CT of 01/12/2017, there is decreased pancreatic stranding. The dominant abscess/infected pseudocyst containing the percutaneous drainage catheter has significantly decreased in size and nearly resolved. 2. Minimal change in size of an abscess cavity/infected pseudocyst right and superior to the percutaneous drainage catheter adjacent to the pancreatic head. 3. There appears to be a fistula tract and a catheter between the posterior wall of the stomach and the previously seen dominant pseudocyst, likely an internal drain. Recommend correlation with operative history. 4. Hepatic steatosis. 5. Stomach wall thickening and gastric varices. No significant discrepancy with the security shift supervisor radiology preliminary report. Dictated by: Bert Moncada M.D. on 02/18/2017 at 8:06 Assessment & Plan 31yoM with past medical history of daily alcohol consumption, pancreatitis 2/2 ETOH and hypertriglyceridemia s/p plasma exchange with course complicated by subsequent walled of pancreatic necrosis (WOPN) now s/p drainage admitted with worsening abdominal pain. Hospital day 2 1. Abdominal pain. On admission, acute. Improving - Most likely secondary to recurrent pancreatitis, WOPN, drain placement - Lipase within normal limits - Different in characteristic from prior episodes of pancreatitis, LLQ pain - CT showed: - fistula tract found between the posterior wall of some stomach and previously and seemed dominant pseudocyst was likely an internal drain - Dominant abscess/infected pseudocyst significantly decreased in size, nearly resolved - Persistent abscess cavity/infected pseudocyst and area of pancreatic head - Advance diet as tolerated today, continue IV hydration - Switch to oral pain medication - No antibiotics initiated secondary to low suspicion for infectious etiology 2. Metabolic acidosis, acute. Present on admission. Improving - Unclear etiology on admission - Lactic acid 3.9 on admission, trended down 0.8 - Urinalysis ordered today, pending 3. Leukocytosis, acute. Present on admission. Resolved -secondary to pancreatitis vs WOPN -continue to monitor 4. Alcohol dependence, acute on chronic. Present on admission. Ongoing -Reportedly been sober for 9 months with relapse leading up to hospital admission -EtOH 315 on admission -[facility] protocol - referral 5. Diabetes type II. Chronic resident on admission ongoing - Patient on home insulin glargine 6 units subcutaneous at bedtime, gabapentin 300 mg daily -hgbA1c 8.9 -Medium dose correctional scale ordered today - Continued home gabapentin 6. Insomnia. Present on admission. Chronic. 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 Present on admission. Ongoing - Dual modality drainage in place - Supportive treatment as above in #1 - Flush drain with 20cc sterile saline BID, RN communication ordered - Monitor I&Os Disposition: Patient will discharge home tomorrow secondary to oral pain medication management needs Pain Evaluation: Adequate Pain Control GI Prophylaxis: Proton Pump Inhibitor VTE Prophylaxis: Sub-Q Heparin (Unfractionated) Resuscitation Status: CPR: Attempt Resuscitation Attending Statement The patient was seen and examined together with Dr. Hubbard on 02/19/2017 and I agree with the history, exam and plan as outlined in the note above. . NICK HUBBARD DO Feb 19, 2017 10:33 Kendell Kruse MD Feb 20, 2017 06:01
[2017-02-19] MEDS: NS IV SCH ×2 (10:49)
[2017-02-19] MEDS: THIAMINE IV SCH ×2 (10:49)
[2017-02-19] MEDS ORDERED: oxyCODONE-Acetamin 5-325 mg Tablet PO PRN (10:55)
[2017-02-19 12:15] LABS: COLOR,URINE YELLOW (YELLOW)
[2017-02-19 12:16] LABS: APPEARANCE,URINE TURBID (CLEAR,HAZY); OCCULT BLOOD,URINE NEGATIVE (NEGATIVE); PH,URINE 7.5 (5.0-8.0); UROBILINOGEN,URINE NORMAL (NORMAL)
[2017-02-19] MEDS: Insulin LISPRO 300 Unit/3 mL Inj SUBQ SCH ×2 (13:15→17:30)
--- NOTE | 2017-02-19 14:55 | NUR ---
Pain / nausea / appetite Patient reports nausea is "a lot better" this morning and "better than it was last night". Pain controlled at 6/10 after transitioning from IV to PO medications. Patient able to take small bites of clear liquids without discomfort. Transitions to light general diet at lunch time with no C/O nausea. Bed low and locked, call light in reach, care and frequent rounding ongoing.
[2017-02-19] MEDS ORDERED: PANC1POW MC (15:32)
[2017-02-19] MEDS ORDERED: OXYC-474 PO (15:42)
--- NOTE | 2017-02-19 15:42 | PCM.DIMED ---
NICK HUBBARD DO 02/19/17 1541: Discharge Instructions Date of Service Feb 19, 2017 Dates of Hospitalization Feb 18, 2017 at 00:29 Discharge Diagnosis Discharge Diagnosis . 1. Abdominal pain 2. Metabolic acidosis 3. Leukocytosis 4. Alcohol dependence 5. Diabetes type II 6. Insomnia 7. WOPN Medication Instructions I am continuing your home medications gabapentin, insulin glargine, trazodone. I am giving you two paper prescriptions. -The first is for a medication called pancreatin, you are to take 1 g of this powder with meals every day. This will be to supplement you until you can get preauthorization for a pancreatic enzyme replacement medication. -The second is for pain medication oxycodone, this is a home medication that I have simply renewed and given you an additional prescription for. You are to take three 5 mg tablets by mouth every 6 hours as needed for pain. Diet Low fat, Low Sodium Activity Limited until seen by PCP Call your provider Fever or Chills, Shortness of breath, Bleeding, Chest pain, Vomitting, Excessive diarrhea, Weakness (unilateral) Patient Instructions We are being discharged from the hospital to home, please follow-up with your primary care physician Dr. August within the next week. At time of discharge waiting preauthorization for a pancreatic enzyme medication , we will need to follow up with primary care physician for prescription of this medication Please keep your scheduled appointment with Dr. Salmon, her gastrointestinal doctor at [facility] Follow-up Provider: Gertrudis August DO Follow-up with PCP in: 1 week Kendell Kruse MD 02/20/17 0601: Discharge Instructions Attending's Statement The patient was seen and examined together with Dr. Hubbard on 02/19/2017 and I agree with the history, exam and plan as outlined in the note above. . NICK HUBBARD DO Feb 19, 2017 15:41 Kendell Kruse MD Feb 20, 2017 06:01
--- NOTE | 2017-02-19 17:25 | PCM.DC.MED ---
Discharge Summary Date of Service Feb 19, 2017 Dates of Hospitalization Date of Hospital Admission Feb 18, 2017 at 00:29 Date of Discharge: Feb 19, 2017 Providers: Admitting Physician: Claudia Potts DO Primary Care Physician: Gertrudis August DO Attending Physician: Claudia Potts DO Diagnosis at Time of Discharge Diagnosis at Time of Discharge . 1. Abdominal pain 2. Metabolic acidosis 3. Leukocytosis 4. Alcohol dependence 5. Diabetes type II 6. Insomnia 7. WOPN Procedures XRay, CTs & MRIs . CT ABDOMEN AND PELVIS WITH CONTRAST IMPRESSION: 1. Compared to the last CT of 01/12/2017, there is decreased pancreatic stranding. The dominant abscess/infected pseudocyst containing the percutaneous drainage catheter has significantly decreased in size and nearly resolved. 2. Minimal change in size of an abscess cavity/infected pseudocyst right and superior to the percutaneous drainage catheter adjacent to the pancreatic head. 3. There appears to be a fistula tract and a catheter between the posterior wall of the stomach and the previously seen dominant pseudocyst, likely an internal drain. Recommend correlation with operative history. 4. Hepatic steatosis. 5. Stomach wall thickening and gastric varices. No significant discrepancy with the sprayer leather radiology preliminary report. Dictated by: Bert Moncada M.D. on 02/18/2017 at 8:06 Brief History History and physical per Dr. Potts, D.O., 02/18/2017 "31yoM with past medical history of daily alcohol consumption, pancreatitis 2/2 ETOH and hypertriglyceridemia s/p plasma exchange with course complicated by subsequent walled of pancreatic necrosis (WOPN) now s/p drainage, recent intraabdominal hemorrhage (transferred from [facility] ED to 01/12) admitted with worsening abdominal pain. Pain began 1-2 hours prior to admission and as per ED documentation and patient he believes " he has pushed himself too far". He has been experiencing non- radiating 8/10 left lower abdominal pain / pressure which is different in characteristic and location from prior episode of pancreatitis. Nothing has relieved the discomfort. He denies fevers, chills, nausea, vomiting, changes in drainage from pancreatic drain, changes in bowel movements or urination. 2 days ago pancreatic drain was replaced however this is the only recent change aside from acute alcohol consumption Patient states that due to increased social stressors (i.e. loss of home, friend ) he decided to start drinking. He has been sober over the past 9 months and understands the consequences of drinking especially in the setting of pancreatitis and WOPN. Dr. Salmon (GI) at [facility] was contacted prior to admission and plan for admission with observation at [facility] with transfer if patient acutely worsens. " Hospital Course 1. Abdominal pain - Most likely secondary to recurrent pancreatitis, WOPN, drain placement - Lipase within normal limits - Different in characteristic from prior episodes of pancreatitis, LLQ pain - CT showed: - fistula tract found between the posterior wall of some stomach and previously and seemed dominant pseudocyst was likely an internal drain - Dominant abscess/infected pseudocyst significantly decreased in size, nearly resolved - Persistent abscess cavity/infected pseudocyst and area of pancreatic head - Advance diet as tolerated today, continued IV hydration - Switched to oral pain medication prior to discharge with good effect - No antibiotics initiated secondary to low suspicion for infectious etiology 2. Metabolic acidosis - Unclear etiology on admission - Lactic acid 3.9 on admission, trended down 0.8 - Urinalysis showed no indication for culture 3. Leukocytosis -secondary to pancreatitis vs WOPN 4. Alcohol dependence -Reportedly been sober for 9 months with relapse leading up to hospital admission -EtOH 315 on admission -[facility] protocol during hospital admission - referral 5. Pancreatic insufficiency - Patient on home insulin glargine 6 units subcutaneous at bedtime, gabapentin 300 mg daily - hgbA1c 8.9 - Medium dose correctional scale - Continued home gabapentin 6. Insomnia -Continued home trazodone 25 mg by mouth at bedtime when necessary 7. WOPN - (walled off pancreatic necrosis) - Dual modality drainage in place - Supportive treatment as above in #1 - Flush drain with 20cc sterile saline BID, RN communication ordered - Monitored I&Os Exam Vital Signs (Last) Date Time Temp Pulse Resp B/P Pulse Ox O2 Delivery O2 Flow Rate FiO2 02/19/17 13:48 36.7 98 16 112/70 98 Room Air Exam General: No acute distress, well-developed, well-nourished, appropriately interactive, sitting up in hospital bed HEENT: Normocephalic, atraumatic. External ears without defect. Pupils equal, round, and reactive to light and accommodation. Anicteric sclerae, moist conjunctivae, and no lid lag. Oropharynx free of erythema and cobble stoning with moist mucosa. Neck: Supple with full range of motion. No jugular venous distension. No bruits. Cardiovascular: Regular rate and rhythm with no murmurs, rubs, or gallops appreciated Pulmonary: Clear to auscultation bilaterally with no crackles, wheezes, or rhonchi. Normal respiratory effort with no use of accessory muscles. Abdomen: Bowel tones present. Soft, tender to palpation epigastric area and left lower quadrant. Right flank drain in place, drainage bag with an fluid. Dressing intact. Umbilical midline incision present well healed. Extremities: No clubbing, cyanosis, edema, or lymphadenopathy appreciated. Skin: Normal temperature, turgor, and texture Neurological: Cranial nerves grossly intact. Psychiatric: Normal mood and affect. Alert and oriented to person, place, and time. Test 02/17/17 00:00 02/17/17 19:55 02/19/17 06:15 02/19/17 11:45 Hemoglobin A1c 8.9% (4.8-5.6) Prothrombin Time 9.6sec (8.1-12.5) Prothromb Time International Ratio 0.90ratio Hold Sommers Top Tube Received (Received) Alcohols 315mg/dL (0-10) White Blood Count 6.0th/mm3 (3.8-10.1) Red Blood Count 4.44mil/mm3 (4.40-5.80) Hemoglobin 12.0g/dL (13.8-17.2) Hematocrit 37.2% (41.0-50.0) Mean Corpuscular Volume 83.8fL (81-100) Mean Corpuscular Hemoglobin 27.0pg (27.0-35.0) Mean Corpuscular Hemoglobin Concent 32.3% (32.0-37.0) Red Cell Distribution Width 14.7% (12.3-15.4) Platelet Count 215bil/L (150-400) Neutrophils (%) (Auto) 62.3% (40-74) Lymphocytes (%) (Auto) 23.5% (14-46) Monocytes (%) (Auto) 11.3% (4-12) Eosinophils (%) (Auto) 2.5% (0-5) Basophils (%) (Auto) 0.2% (0-3) Sodium Level 135mEq/L (134-144) Potassium Level 3.9mEq/L (3.5-5.2) Chloride Level 94mEq/L (97-108) Carbon Dioxide Level 25mmol/L (18-29) Blood Urea Nitrogen 6mg/dL (6-20) Creatinine 0.49mg/dL (0.76-1.27) Estimat Glomerular Filtration Rate 212mL/min (>59) Glucose Level 225mg/dL (60-99) Lactic Acid Level 0.8mmol/L (0.4-2.0) Calcium Level 9.9mg/dL (8.5-10.1) Magnesium Level 1.8mg/dL (1.6-2.6) Total Bilirubin 0.8mg/dL (0.0-1.2) Aspartate Amino Transf (AST/SGOT) 21U/L (0-50) Alanine Aminotransferase (ALT/SGPT) 7U/L (0-44) Alkaline Phosphatase 151U/L (25-150) Total Protein 7.9g/dL (6.4-8.4) Albumin 3.9g/dL (3.4-5.0) Triglycerides Level 202mg/dL (0-149) Cholesterol Level 173mg/dL (100-199) LDL Cholesterol, Calculated 69.600mg/dL (0-99) VLDL Cholesterol 40.400mg/dL HDL Cholesterol 63mg/dL (>39) Cholesterol/HDL Ratio 2.75 (0.0-4.4) Lipase 12U/L (13-60) Urine Color Yellow (YELLOW) Urine Appearance Turbid (CLEAR,HAZY) Urine pH 7.5 (5.0-8.0) Urine Specific [place] 1.015 (1.003-1.035) Urine Protein Tracemg/dL (NEG,TRACE) Urine Glucose (UA) 500mg/dL (NEGATIVE) Urine Ketones 40mg/dL (NEGATIVE) Urine Occult Blood Negative (NEGATIVE) Urine Nitrite Negative (NEGATIVE) Urine Bilirubin Negative (NEGATIVE) Urine Urobilinogen Normalmg/dL (NORMAL) Urine Leukocyte Esterase Negative (NEGATIVE) Urine RBC 0-2/hpf (0-2) Urine WBC 0-5/hpf (0-5) Urine Epithelial Cells Occasional/hpf (NONE-MOD) Urine Crystals Amorphous phosphates Urine Bacteria None/hpf (NONE-FEW) Urine Hyaline Casts None/lpf (NONE) Urine Granular Casts None seen (NONE SEEN) Urine Waxy Casts None seen (NONE SEEN) Urine Red Blood Cell Casts None seen (NONE SEEN) Urine White Blood Cell Casts None seen (NONE SEEN) Urine Mucus None seen (None Seen) Urine Trichomonas None seen (NONE SEEN) Urine Yeast None (NONE SEEN) Urinalysis Comment None Urine Culture Reflexed Not indicated Discharge Medications Discharge Medications Gabapentin (Gabapentin) 300 Mg Capsule 300 MG PO DAILY (Reported) Insulin Glargine (Lantus U100 Insulin Vial) 100 Unit/Ml Vial 6 UNIT SUBQ HS ( Reported) Pancreatin (Pancreatin) 1 Gm Powder 1 GM MC TIDWM Prescribed by: NICK HUBBARD DO As needed Oxycodone (Roxicodone) 5 Mg Tablet 15 MG PO Q6H PRN PRN For Pain Prescribed by: NICK HUBBARD DO Trazodone (Trazodone) 50 Mg Tablet 25 MG PO HS PRN PRN For Insomnia (Reported) Additional med instructions I am continuing your home medications gabapentin, insulin glargine, trazodone. I am giving you two paper prescriptions. -The first is for a medication called pancreatin, you are to take 1 g of this powder with meals every day. This will be to supplement you until you can get preauthorization for a pancreatic enzyme replacement medication. -The second is for pain medication oxycodone, this is a home medication that I have simply renewed and given you an additional prescription for. You are to take three 5 mg tablets by mouth every 6 hours as needed for pain. Followup Plan Disposition: Discharged to home in stable condition Follow-up plan Patient will follow up with primary care provider Dr. August Discharge Diet: Low fat, Low Sodium Discharge Activity: Limited until seen by PCP Patient Instructions We are being discharged from the hospital to home, please follow-up with your primary care physician Dr. August within the next week. At time of discharge waiting preauthorization for a pancreatic enzyme medication , we will need to follow up with primary care physician for prescription of this medication Please keep your scheduled appointment with Dr. Salmon, her gastrointestinal doctor at [facility] Follow-up Provider: Gertrudis August DO Follow-up with PCP in: 1 week Time spent Greater than 30 minutes was spent in preparation of discharge with greater than 50% of that time dedicated to patient counseling and coordination of care. . Attending Statement The patient was seen and examined together with Dr. Hubbard on 02/19/2017 and I agree with the history, exam and plan as outlined in the note above. . copies to: Gertrudis August GILES A DO Feb 19, 2017 17:25 Kendell Kruse MD Feb 20, 2017 06:02
--- NOTE | 2017-02-19 18:03 | NUR ---
DISCHARGE Patient discharged at 1800 ambulated off floor accompanied by primary RN. Vitals stable, reports abdominal pain at 6/10 which patient states is tolerable, and in no apparent distress. IV discontinued intact, all belongings including cell phone returned. All instructions for diet, activity, medications, new prescriptions and follow-up reviewed with patient who reports understanding.
[2017-02-19] MEDS ORDERED: Insulin GLARgine 100 Unit/mL Syringe SUBQ SCH (21:00)
== END 2017-02-19 18:07 | disposition home or self-care (01) ==
LOC: SED 17:14 → INTOOBSV 02-18 00:29 → MPC 02-18 00:29
PROVIDERS: ADMIT Internal Medicine; ATTEND Internal Medicine
DX: R10.9 Unspecified abdominal pain (principal); E87.2 Acidosis; D72.829 Elevated white blood cell count, unspecified; E11.9 Type 2 diabetes mellitus without complications; K86.1 Other chronic pancreatitis; E78.1 Pure hyperglyceridemia; F10.20 Alcohol dependence, uncomplicated; K86.81 Exocrine pancreatic insufficiency; Z79.4 Long term (current) use of insulin; G47.00 Insomnia, unspecified; G62.9 Polyneuropathy, unspecified; K85.20 Alcohol induced acute pancreatitis without necrosis or infection; K86.3 Pseudocyst of pancreas; K70.9 Alcoholic liver disease, unspecified; F17.200 Nicotine dependence, unspecified, uncomplicated; F12.10 Cannabis abuse, uncomplicated; Z90.89 Acquired absence of other organs; Z96.89 Presence of other specified functional implants
CPT/HCPCS: 36415; 74177; 80053; 80061; 81000; 83036; 83605; 83690; 83735; 84478; 85025; 85610; 96374; 96375; 96376; 99285; G0480; J1170; J1815; J2270; J2405; J3475; J7030; J7042; Q9967

== ENCOUNTER 2017-03-07 21:34 | Emergency (ER) | payer OTHER ==
[~2017-03-07] VITALS: Ht 160 cm; Wt 58.2 kg
[~2017-03-07 21:34] MED LIST changes: +GABA-502 PO; -HYDR-4003 PO; +INSU100V7 SUBQ; +OXYC-474 PO; +PANC1POW MC; +TRAZ-115 PO
[2017-03-07 21:43] VITALS: BP 140/92; PULSE 117; RESP 20; O2SAT 99
[2017-03-07 23:43] LABS: BASOPHILS % (AUTO) 0.6 % (0-3); EOSINOPHILS % (AUTO) 1.1 % (0-5); MONOCYTES % (AUTO) 10.1 % (4-12); Mean Corpuscular Hemoglobin 27.7 pg (27.0-35.0); Mean Corpuscular Volume 82.7 fL (81-100); NEUTROPHILS % (AUTO) 51.6 % (40-74); Platelet Count 302 bil/L (150-400)
--- NOTE | 2017-03-08 01:13 | ED.REPORT ---
HPI-General Illness Date of Service March 08, 2017 ED Provider: Dr. Song Chen D.O. A 32 year old male with a medical history including alcohol abuse, alcoholic liver disease, pancreatitis, diabetes mellitus, and pancreatic pseudocyst s/p pancreatic drainage tube placement presents to the ED reporting RLQ abdominal pain onset several days ago. The pain radiates to his LLQ. The patient reports missing his last couple of appointments to have his pancreatic drain checked and now reports pain around the site. He admits to drinking alcohol this evening. The patient denies other symptoms. He was admitted to the hospital one month ago for one night with abdominal pain, metabolic acidosis, and leukocytosis. Nursing Notes Stated Complaint: SUBSTANCE ABUSE Chief Complaint: General Complaint Nursing Notes Reviewed: Yes Allergies: Coded Allergies: No Known Allergies (Verified Allergy, Unknown, 10/19/16) Scheduled Gabapentin (Gabapentin) 300 Mg Capsule 300 MG PO DAILY Insulin Glargine (Lantus U100 Insulin Vial) 100 Unit/Ml Vial 6 UNIT SUBQ HS Pancreatin (Pancreatin) 1 Gm Powder 1 GM MC TIDWM Scheduled PRN Oxycodone (Roxicodone) 5 Mg Tablet 15 MG PO Q6H PRN PRN For Pain Trazodone (Trazodone) 50 Mg Tablet 25 MG PO HS PRN PRN For Insomnia General Time Seen by MD: 01:13 Chief Complaint Abdominal pain Hx Obtained From: Patient Arrived By: Walk-in Onset Occurred: More than a week ago... (Several days ) Symptom Duration: Since onset Location: : Abdomen Quality: Painful Severity: Current: Moderate Severity: Maximum: Moderate Pertinent Negative: Relieved by nothing Context Related History: Reports Diabetes mellitus Recent Healthcare: Recent hospitalization Past Medical History Past Medical History Notes: Followed by Dr. Salmon (GI) at 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 S/p drainage at [facility] (Dec 2016). Reports: Diabetes mellitus Reports: Depression Past Surgical History 1) 01/27/16: Procedure: Exploratory laparotomy, lysis of adhesions, drainage of intra-abdominal abscess, appendectomy, rigid proctoscopy, flexible sigmoidoscopy Surgeon: Neo Daniel M.D. 2) drain placed for infected pancreatic pseudocust at [facility] (Dec 2016) 2) Endoscopic drainage of his pancreatic psuedocyst at [facility] R hand wound repair Family History noncontributory Smoking History Current Some Day Smoker Social History Alcohol Use: Denies alcohol use Drug Use: Denies drug use, THC Other Social History: Good social support, Local resident Ambulatory Status Independent Review of Systems + Pain around pancreatic drain site Full Review of Systems Constitutional: Denies: Fever Respiratory: Denies: Non-productive cough, Shortness of breath GI: Reports: Abdominal pain (RLQ and LLQ), Denies: Diarrhea, Vomiting Complete sys rev & neg: except as marked. Physical Exam Vital Signs Vital Signs Date Time Temp Pulse Resp B/P Pulse Ox O2 Delivery O2 Flow Rate FiO2 03/07/17 21:43 36.4 117 20 140/92 99 Room Air Initial VS: Reviewed Head / Eyes: Atraumatic, Normocephalic ENT: Conjunctiva normal, No scleral icterus Neck: Supple, Full range of motion Respiratory: Breath sounds normal, Clear to auscultation, No respiratory distress Cardiovascular: Regular rate & rhythm, Heart sounds normal Skin: Warm, Dry, No cyanosis Neurologic: Alert, Oriented, Nonfocal Psychiatric: Mood/affect normal, Behavior normal, Normal thought content General/Constitutional: Awake, Alert Appearance / Presentation: Positive: Intoxicated Abdomen: Soft, Non-tender Pancreatic tube drain intact without signs of infection Interpretation & Diagnostics Lab Results Interpretation Result Diagram: 03/07/17 2330 03/07/17 2330 Test 03/07/17 23:30 White Blood Count 7.9th/mm3 (3.8-10.1) Red Blood Count 4.91mil/mm3 (4.40-5.80) Hemoglobin 13.6g/dL (13.8-17.2) Hematocrit 40.6% (41.0-50.0) Mean Corpuscular Volume 82.7fL (81-100) Mean Corpuscular Hemoglobin 27.7pg (27.0-35.0) Mean Corpuscular Hemoglobin Concent 33.5% (32.0-37.0) Red Cell Distribution Width 14.6% (12.3-15.4) Platelet Count 302bil/L (150-400) Neutrophils (%) (Auto) 51.6% (40-74) Lymphocytes (%) (Auto) 36.2% (14-46) Monocytes (%) (Auto) 10.1% (4-12) Eosinophils (%) (Auto) 1.1% (0-5) Basophils (%) (Auto) 0.6% (0-3) Sodium Level 134mEq/L (134-144) Potassium Level 3.9mEq/L (3.5-5.2) Chloride Level 90mEq/L (97-108) Carbon Dioxide Level 23mmol/L (18-29) Blood Urea Nitrogen 8mg/dL (6-20) Creatinine 0.60mg/dL (0.76-1.27) Estimat Glomerular Filtration Rate 168mL/min (>59) Glucose Level 423mg/dL (60-99) Calcium Level 9.5mg/dL (8.5-10.1) Total Bilirubin 0.3mg/dL (0.0-1.2) Aspartate Amino Transf (AST/SGOT) 18U/L (0-50) Alanine Aminotransferase (ALT/SGPT) 12U/L (0-44) Alkaline Phosphatase 193U/L (25-150) Total Protein 9.2g/dL (6.4-8.4) Albumin 4.5g/dL (3.4-5.0) Lipase 20U/L (13-60) Hold Sommers Top Tube Received (Received) Alcohols 189mg/dL (0-10) Re-Eval/Medical Decision Med Decision/Clinical Course presents intoxicated and having abdominal pain. I am sure these are both into related due to the fact that he has gastritis as well as chronic pancreatitis. Either way he actually looked better today than the last time I saw him. His abdomen was soft with no appreciable tenderness. I will hydrate him. I will treat him symptomatically and check labs. If all is well be discharged home. He has had numerous CT scans. I do not find an indication for CT him tonight. His drains seem to be functioning. I am the most important things that he seen in close outpatient follow-up. He tells me self medicates when he runs out of oxycodone. I told him this is a terrible decision and it could kill him. I did prescribed 20 oxycodone with the understanding he will not fill the prescription until he is sober. He will be discharged home with said prescription. Source of Hx: Old records Time of Eval: 03:00 Patient Status: Condition improved Re-Evaluation/Progress Note: Discussed with patient lab results, diagnosis, and plan for discharge. Follow-up and return to the ER instructions given. Patient agrees with plan for care and all questions were addressed. Counseled Regarding: Diagnosis, Lab results, Need for follow-up, When/why to return to ED Discharge & Departure Primary Impression: Abdominal pain Abdominal location: generalized Qualified Code: R10.84 - Generalized abdominal pain Additional Impressions: Alcohol intoxication Complication of substance-induced condition: with unspecified complication Qualified Code: F10.129 - Alcohol abuse with intoxication, unspecified Diabetes mellitus Diabetes mellitus type: type 1 Diabetes mellitus complication status: with hyperglycemia Qualified Code: E10.65 - Type 1 diabetes mellitus with hyperglycemia Pancreatic pseudocyst Disposition: Home Discharge Condition All VS Reviewed: Yes Condition: Improved Patient Instructions: Abuse of Alcohol (GEN), Acute Abdominal Pain (ED) Additional Instructions: It is essential that you abstain from alcohol abuse completely. Alcohol will kill you. You need to see your doctors in [place] to have the drains checked this week. Call them Thursday morning. Do not drink any more alcohol. When your sober you may fill the prescription for the oxycodone. Take one every 6 hours as needed for severe pain. Emergency Department cannot refill this. That is why you need to be seen by your specialist in [place]. Do not drive tonight. Do not drive and consume alcohol whatsoever. Do not take any sedatives, drive, or consume alcohol while taking the oxycodone. As always return if any problems or any new or worsening symptoms. I would also like you to be seen by your doctor here in the community and follow-up this week. Referrals: Gertrudis August DO (PCP) Keisha Attestation Portions of this note were transcribed by Johanna Jaramillo. I, Dr. Chen, personally performed the history, physical exam, and medical decision-making; I reviewed and confirmed the accuracy of the information in the transcribed note. Signed by: Keisha Oleary, 03/08/2017, 03:30 copies to: Gertrudis August Todd P DO March 08, 2017 01:13 JOHANNA JARAMILLO March 08, 2017 01:55
[2017-03-08] MEDS ORDERED: 0.9% Sodium Chloride 1,000 ML IV ONE (01:20)
[2017-03-08 01:29] LABS: Lipase 20 U/L (13-60)
[2017-03-08] MEDS ORDERED: Pantoprazole 4 mg/mL 10 mL Inj IVPUSH ONE (02:00)
[2017-03-08] MEDS ORDERED: Thiamine Inj 100 MG, Folic Acid Inj 1 MG, Magnesium Sulfate 50% Inj 2 GM, Multivitamins... IV ONE ×5 (02:05)
[2017-03-08] MEDS: HYDROmorphone 0.5 mg/0.5 mL iSecure Syringe IVPUSH PRN ×2 (02:23→03:19)
[2017-03-08] MEDS ORDERED: Ondansetron 2 mg/mL 2 mL Inj ONE (03:13)
[2017-03-08] MEDS ORDERED: Ondansetron 2 mg/mL 2 mL Inj IVPUSH PRN (04:00)
== END 2017-03-08 05:06 | disposition home or self-care (01) ==
LOC: SED 21:34
DX: R10.84 Generalized abdominal pain (principal); F10.229 Alcohol dependence with intoxication, unspecified; E10.65 Type 1 diabetes mellitus with hyperglycemia; K86.3 Pseudocyst of pancreas; K70.9 Alcoholic liver disease, unspecified; F32.9 Major depressive disorder, single episode, unspecified; F17.200 Nicotine dependence, unspecified, uncomplicated; Y90.6 Blood alcohol level of 120-199 mg/100 ml; Z96.89 Presence of other specified functional implants; Z87.19 Personal history of other diseases of the digestive system; Z79.4 Long term (current) use of insulin
CPT/HCPCS: 36415; 80053; 83690; 85025; 96361; 96374; 96375; 96376; 99285; G0480; J1170; J2405; J3475; J7030

== ENCOUNTER 2017-03-17 20:49 | Emergency (ER) | payer OTHER ==
[~2017-03-17] VITALS: Ht 160 cm; Wt 56.1 kg
[2017-03-17 20:57] VITALS: BP 143/92; PULSE 128; RESP 18; O2SAT 99
--- NOTE | 2017-03-17 22:09 | ED.REPORT ---
HPI-Abd Pain M Under 40 Date of Service March 17, 2017 ED Provider: Song Chen DO. Patient is a 32 year old male with a history of alcoholism and chronic pancreatitis with a pancreatic drain who presents to the ED complaining of abdominal pain. He reports that he is supposed to to have his pancreatic drainage changed every two weeks but hasn't been able to get down there so it has been more then 4 weeks since it's been changed. Nursing Notes Stated Complaint: ABDOMINAL PAIN, PANCREATIC DRAINAGE ISSUE Chief Complaint: Male Abdominal Pain Nursing Notes Reviewed: Yes Allergies: Coded Allergies: No Known Allergies (Verified Allergy, Unknown, 10/19/16) Scheduled Gabapentin (Gabapentin) 300 Mg Capsule 300 MG PO DAILY Insulin Glargine (Lantus U100 Insulin Vial) 100 Unit/Ml Vial 6 UNIT SUBQ HS Pancreatin (Pancreatin) 1 Gm Powder 1 GM [facility] TIDWM Scheduled PRN Oxycodone (Roxicodone) 5 Mg Tablet 15 MG PO Q6H PRN PRN For Pain Trazodone (Trazodone) 50 Mg Tablet 25 MG PO HS PRN PRN For Insomnia General Time Seen by MD: 22:08 Chief Complaint Abdominal pain Hx Obtained From: Patient Arrived By: Walk-in Location: : Diffuse Recent Healthcare: Recent doctor visit, Recent hospitalization Similar Sx Previous: Yes Past Medical History Past Medical History Notes: Followed by Dr. 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 S/p drainage at [facility] (Dec 2016). Reports: Diabetes mellitus Reports: Depression Past Surgical History 1) 01/27/16: Procedure: Exploratory laparotomy, lysis of adhesions, drainage of intra-abdominal abscess, appendectomy, rigid proctoscopy, flexible sigmoidoscopy Surgeon: Neo Daniel M.D. 2) drain placed for infected pancreatic pseudocust at [facility] (Dec 2016) 2) Endoscopic drainage of his pancreatic psuedocyst at [facility] R hand wound repair Family History noncontributory Smoking History Current Some Day Smoker Social History Alcohol Use: In recovery Drug Use: Denies drug use, THC Other Social History: Good social support, Local resident Ambulatory Status Independent Review of Systems Respiratory: Denies: Non-productive cough, Shortness of breath GI: Reports: Abdominal pain, Denies: Vomiting Complete sys rev & neg: except as marked. Skin: Denies Rash Physical Exam Initial Vital Signs Vital Signs (First) Date Time Temp Pulse Resp B/P Pulse Ox O2 Delivery O2 Flow Rate FiO2 03/17/17 20:57 36.3 128 18 143/92 99 Room Air Initial VS: Reviewed General/Constitutional: Awake, Alert, No acute distress, Well appearing Respiratory / Chest: Atraumatic, Breath sounds NL, Breath sounds = bilat, No respiratory distress Cardiovascular: Heart rate NL, Regular rhythm, Heart sounds NL Abdomen: Atraumatic, Soft, Non-tender pancreatic drain on the right side Back: Atraumatic, Full range of motion Head / Eyes: Atraumatic, Normocephalic, PERRL, EOMI Neurologic: Oriented X3, Speech NL, No motor deficits, No sensory deficits Upper Extremity / MS: Atraumatic, Full range of motion Skin: Atraumatic, Color NL, No rash, Warm, Dry Psychiatric: Affect NL, Mood NL Interpretation & Diagnostics Lab Results Interpretation Result Diagram: 03/17/172 03/17/172231 Test 03/17/17 22:32 03/17/17 23:07 03/17/17 23:32 White Blood Count 5.3th/mm3 (3.8-10.1) Red Blood Count 4.40mil/mm3 (4.40-5.80) Hemoglobin 12.1g/dL (13.8-17.2) Hematocrit 36.4% (41.0-50.0) Mean Corpuscular Volume 82.7fL (81-100) Mean Corpuscular Hemoglobin 27.5pg (27.0-35.0) Mean Corpuscular Hemoglobin Concent 33.2% (32.0-37.0) Red Cell Distribution Width 13.5% (12.3-15.4) Platelet Count 174bil/L (150-400) Neutrophils (%) (Auto) 65.0% (40-74) Lymphocytes (%) (Auto) 22.0% (14-46) Monocytes (%) (Auto) 10.9% (4-12) Eosinophils (%) (Auto) 1.5% (0-5) Basophils (%) (Auto) 0.4% (0-3) Band Neutrophils % 0% (1-5) Sodium Level 129mEq/L (134-144) Potassium Level 4.2mEq/L (3.5-5.2) Chloride Level 91mEq/L (97-108) Carbon Dioxide Level 23mmol/L (18-29) Blood Urea Nitrogen 8mg/dL (6-20) Creatinine 0.60mg/dL (0.76-1.27) Estimat Glomerular Filtration Rate 168mL/min (>59) Glucose Level 549mg/dL (60-99) Calcium Level 9.9mg/dL (8.5-10.1) Total Bilirubin 0.5mg/dL (0.0-1.2) Aspartate Amino Transf (AST/SGOT) 23U/L (0-50) Alanine Aminotransferase (ALT/SGPT) 23U/L (0-44) Alkaline Phosphatase 197U/L (25-150) Total Protein 8.7g/dL (6.4-8.4) Albumin 4.2g/dL (3.4-5.0) Lipase 14U/L (13-60) Alcohols 10mg/dL (0-10) Hold Sommers Top Tube Received (Received) Hold Urine Received (Received) Re-Eval/Medical Decision Med Decision/Clinical Course 32-year-old male with chronic pain related to chronic pancreatitis. He is here because he is having increasing pain and he is about out of his axes. His belly was benign. No drainage from the tubes. Labs are reassuring. He was moderately hyperglycemic this resolved with fluids and insulin. Pain was adequately controlled. He has a follow-up later this week. I provided him with 20 oxycodone 5 mg tablets. I did tell him that he needs see his primary care for further pain control. I do not feel a CT scan was indicated and here' s why: No fever, soft belly, normal labs and multiple recent CTs. Re-Evaluation/Progress : Time of Eval: 01:10 Patient Status: Condition improved Re-Evaluation/Progress Note: Discussed results and plan for discharge. The patient understands and agrees to the plan for discharge. All questions were addressed. Counseled Regarding: Diagnosis, Lab results, Need for follow-up, When/why to return to ED Patient Discharge & Departure Primary Impression: Generalized abdominal pain Additional Impressions: Draining postoperative wound Encounter type: subsequent encounter Qualified Code: T81.89XD - Other complications of procedures, not elsewhere classified, subsequent encounter Pancreatic pseudocyst Disposition: Home Discharge Condition All VS Reviewed: Yes Condition: Stable Patient Instructions: Acute Abdominal Pain (ED), Pancreatitis (ED) Additional Instructions: I want you to see Dr. Fregoso this week in the office. Call tomorrow to set up an appointment. Also be sure and set up this time with your pancreatic surgeons to have them performed procedures as requested. You may take 1-2 oxycodone every 6 hours as needed for severe pain. Do not drink alcohol or consume acetaminophen or any other sedatives including oxycodone. Your blood sugar was greater than 500. Use insulin as directed. Stay well hydrated. Follow your post pancreatitis diet. Do not drive tonight. Return if any problems or any new or worsening symptoms. Referrals: Gertrudis August DO (PCP) Keisha Attestation Portions of this note were transcribed by Esthela Ji. I, Dr. Chen personally performed the history, physical exam and medical decision-making; I reviewed and confirmed the accuracy of the information in the transcribed note. Signed by: Keisha Templeton, 03/17/17 and 2240 copies to: Gertrudis August Todd P DO March 17, 2017 22:09 Nely Ji March 17, 2017 22:36
[2017-03-17] MEDS ORDERED: 0.9% Sodium Chloride 1,000 ML IV SCH (22:30)
[2017-03-17] MEDS ORDERED: Ondansetron 2 mg/mL 2 mL Inj IVPUSH PRN (22:30)
[2017-03-17 22:51] LABS: Mean Corpuscular Hemoglobin 27.5 pg (27.0-35.0); Mean Corpuscular Volume 82.7 fL (81-100)
[2017-03-17 22:52] LABS: BASOPHILS % (AUTO) 0.4 % (0-3); EOSINOPHILS % (AUTO) 1.5 % (0-5); MONOCYTES % (AUTO) 10.9 % (4-12); Platelet Count 174 bil/L (150-400)
[2017-03-17] MEDS: HYDROmorphone 0.5 mg/0.5 mL iSecure Syringe IVPUSH PRN (23:09)
[2017-03-17] MEDS ORDERED: Insulin Human REGular-Omnicell 100 Unit/mL IV ONE (23:45)
[2017-03-18] MEDS: HYDROmorphone 0.5 mg/0.5 mL iSecure Syringe IVPUSH PRN (00:03)
[2017-03-18] MEDS ORDERED: Sodium Chloride LOK Flush 10 mL Syringe IVFLUSH SCH (00:30)
[2017-03-18 00:41] VITALS: BP 127/78; PULSE 88; RESP 18; O2SAT 99
[2017-03-18 01:34] VITALS: BP 118/65; PULSE 96; RESP 18; O2SAT 100
== END 2017-03-18 01:35 | disposition home or self-care (01) ==
LOC: SED 20:49
DX: T81.89XD Other complications of procedures, not elsewhere classified, subsequent encounter (principal); Y83.8 Other surgical procedures as the cause of abnormal reaction of the patient, or of later complication, without mention of misadventure at the time of the procedure; Y92.89 Other specified places as the place of occurrence of the external cause; Y99.8 Other external cause status; K86.3 Pseudocyst of pancreas; E11.9 Type 2 diabetes mellitus without complications; F17.200 Nicotine dependence, unspecified, uncomplicated; Z79.4 Long term (current) use of insulin
CPT/HCPCS: 36415; 80053; 82948; 83690; 85025; 96361; 96374; 96375; 96376; 99284; G0480; J1170; J1815; J2405; J7030

== ENCOUNTER 2017-04-04 03:14 | Emergency (ER) | payer OTHER ==
[~2017-04-04] VITALS: Ht 160 cm; Wt 53.6 kg
[2017-04-04 03:16] VITALS: BP 140/96; PULSE 110; RESP 15; O2SAT 98
[2017-04-04 03:54] VITALS: BP 132/98; PULSE 115; RESP 15; O2SAT 96
--- NOTE | 2017-04-04 03:59 | ED.REPORT ---
HPI-Abd Pain M Under 40 Date of Service Apr 04, 2017 ED Provider: Martell Louis MD Patient is a 32 year old male with a history of alcoholism and chronic pancreatitis with a pancreatic drain who presents to the ED via EMS complaining of abdominal pain that began last night. Patient recently relapsed 3 days ago and his last drink was 24 hours ago. He reportedly drinks 3-4 7% [employer] per night. Patient reports that he does not have a strong support system and is currently seeking detox. Nursing Notes Stated Complaint: ABDOMINAL PAIN Chief Complaint: Substance Abuse Nursing Notes Reviewed: Yes Allergies: Coded Allergies: No Known Allergies (Verified Allergy, Unknown, 04/04/17) Scheduled Gabapentin (Gabapentin) 300 Mg Capsule 300 MG PO DAILY Insulin Glargine (Lantus U100 Insulin Vial) 100 Unit/Ml Vial 6 UNIT SUBQ HS Pancreatin (Pancreatin) 1 Gm Powder 1 GM MC TIDWM Scheduled PRN Oxycodone (Roxicodone) 5 Mg Tablet 15 MG PO Q6H PRN PRN For Pain Trazodone (Trazodone) 50 Mg Tablet 25 MG PO HS PRN PRN For Insomnia General Time Seen by MD: 03:57 Chief Complaint Abdominal pain Hx Obtained From: Patient Arrived By: Ambulance Sudden in Onset?: No Onset Occurred: 9 - 12 hours ago Symptom Duration: Since onset Progression since Onset: Unchanged Location: : Diffuse Quality: Itching Radiation: : Does not radiate Severity: Current: Mild Severity: Maximum: Moderate Pertinent Negative: Pt denies other symptoms Context Related History: Reports: Alcohol abuse, Pancreatitis Recent Healthcare: No recent doctor visit, No recent hospitalization Past Medical History Past Medical History Notes: Followed by Dr. 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 S/p drainage at [facility] (Dec 2016). Reports: Diabetes mellitus Reports: Depression Past Surgical History 1) 01/27/16: Procedure: Exploratory laparotomy, lysis of adhesions, drainage of intra-abdominal abscess, appendectomy, rigid proctoscopy, flexible sigmoidoscopy Surgeon: Neo Daniel M.D. 2) drain placed for infected pancreatic pseudocust at [facility] (Dec 2016) 2) Endoscopic drainage of his pancreatic psuedocyst at [facility] hand wound repair Family History noncontributory Smoking History Current Some Day Smoker Social History Alcohol Use: In recovery Drug Use: Denies drug use, THC Other Social History: Good social support, Local resident Ambulatory Status Independent Review of Systems Seeking detox GI: Reports: Abdominal pain Complete sys rev & neg: except as marked. Psychiatric: Reports: Stress (recent relapse) Physical Exam Initial Vital Signs Vital Signs (First) Date Time Temp Pulse Resp B/P Pulse Ox O2 Delivery O2 Flow Rate FiO2 04/04/17 03:16 36.8 110 15 140/96 98 Room Air Initial VS: Reviewed, Vital signs abnormal Head / Eyes: Atraumatic, Normocephalic, PERRL Extremities: Vascular intact, Neuro intact, No swelling, No tenderness Skin: Warm, Dry, No cyanosis Neurologic: Alert, Oriented, Nonfocal Psychiatric: Mood/affect normal, Behavior normal, Normal thought content General/Constitutional: Awake, Alert, No acute distress, Well appearing, Well developed, Cooperative Respiratory / Chest: Atraumatic, Breath sounds NL, Breath sounds = bilat, No respiratory distress Cardiovascular: Heart rate NL, Regular rhythm, Heart sounds NL Abdomen: Atraumatic, Soft ABDOMEN: Scar to left side of abdomen Right abdominal pancreatic drain present with yellow/green liquid Back: Atraumatic, Inspection NL Head / Eyes: Atraumatic, Normocephalic, PERRL HEAD/EYES: Red eyes Interpretation & Diagnostics Lab Results Interpretation Result Diagram: 04/04/17 0343 04/04/17 0343 Test 04/04/17 03:43 White Blood Count 5.3th/mm3 (3.8-10.1) Red Blood Count 5.23mil/mm3 (4.40-5.80) Hemoglobin 14.1g/dL (13.8-17.2) Hematocrit 42.7% (41.0-50.0) Mean Corpuscular Volume 81.6fL (81-100) Mean Corpuscular Hemoglobin 27.0pg (27.0-35.0) Mean Corpuscular Hemoglobin Concent 33.0% (32.0-37.0) Red Cell Distribution Width 14.0% (12.3-15.4) Platelet Count 313bil/L (150-400) Neutrophils (%) (Auto) 48.6% (40-74) Lymphocytes (%) (Auto) 42.5% (14-46) Monocytes (%) (Auto) 6.8% (4-12) Eosinophils (%) (Auto) 1.3% (0-5) Basophils (%) (Auto) 0.8% (0-3) Sodium Level 139mEq/L (134-144) Potassium Level 3.6mEq/L (3.5-5.2) Chloride Level 94mEq/L (97-108) Carbon Dioxide Level 25mmol/L (18-29) Blood Urea Nitrogen 2mg/dL (6-20) Creatinine 0.47mg/dL (0.76-1.27) Estimat Glomerular Filtration Rate 223mL/min (>59) Glucose Level 313mg/dL (60-99) Calcium Level 9.3mg/dL (8.5-10.1) Magnesium Level 1.8mg/dL (1.6-2.6) Total Bilirubin 0.3mg/dL (0.0-1.2) Aspartate Amino Transf (AST/SGOT) 31U/L (0-50) Alanine Aminotransferase (ALT/SGPT) 21U/L (0-44) Alkaline Phosphatase 153U/L (25-150) Total Protein 8.6g/dL (6.4-8.4) Albumin 4.2g/dL (3.4-5.0) Lipase 16U/L (13-60) Alcohols 313mg/dL (0-10) Lab Results Interpretation: EtOH - 313 Re-Eval/Medical Decision Med Decision/Clinical Course 32-year-old chronic alcoholic with chronic pancreatitis and a pancreatic drain in place. He relapsed on alcohol 3 days ago. He is quite concerned that he may have caused himself damage. Labs are unremarkable with exception of an alcohol level of 0.313. He was hydrated and sobered. He requested to be discharged and continue his attempts at sobriety as an outpatient. Re-Evaluation/Progress : Time of Eval: 06:16 Patient Status: Condition improved Re-Evaluation/Progress Note: Symptoms have improved and pt is requesting discharge. All questions are addressed and he denies any referrals to detox at this time. Counseled Regarding: Diagnosis, Lab results, Need for follow-up, When/why to return to ED Patient Discharge & Departure Primary Impression: Alcohol intoxication Complication of substance-induced condition: uncomplicated Qualified Code: F10.120 - Alcohol abuse with intoxication, uncomplicated Additional Impression: Draining postoperative wound Encounter type: subsequent encounter Qualified Code: T81.89XD - Other complications of procedures, not elsewhere classified, subsequent encounter Disposition: Home Discharge Condition All VS Reviewed: Yes Condition: Stable Patient Instructions: Alcohol Dependence (ED) Additional Instructions: Your lab numbers look okay, no evidence of any serious acute damage to your pancreas. Obviously, ongoing drinking will continue to damage your pancreas. Use your support system. Get the required paperwork filled out to get your full [employer] benefits. Call me at [phone] between the hours of 9 PM and 6 AM the next couple of nights if you have any questions or concerns, or just want to talk. Referrals: Gertrudis August DO (PCP) Roryibe Attestation Portions of this note were transcribed by Tony Cuello. I, Dr. Louis personally performed the history, physical exam and medical decision-making; I reviewed and confirmed the accuracy of the information in the transcribed note. Signed by: Keisha Gonzales, 04/04/17 0626. copies to: Gertrudis August Howard L MD Apr 04, 2017 03:59 TONY CUELLO Apr 04, 2017 04:06
[2017-04-04] MEDS ORDERED: Ondansetron 2 mg/mL 2 mL Inj IVPUSH PRN (04:00)
[2017-04-04] MEDS ORDERED: 0.9% Sodium Chloride 1,000 ML IV ONE (04:00)
[2017-04-04 04:11] LABS: BASOPHILS % (AUTO) 0.8 % (0-3); EOSINOPHILS % (AUTO) 1.3 % (0-5); MONOCYTES % (AUTO) 6.8 % (4-12); Mean Corpuscular Volume 81.6 fL (81-100); NEUTROPHILS % (AUTO) 48.6 % (40-74); Platelet Count 313 bil/L (150-400)
[2017-04-04 04:24] LABS: Magnesium 1.8 mg/dL (1.6-2.6)
[2017-04-04 06:18] VITALS: BP 140/88; PULSE 105; RESP 18; O2SAT 96
[2017-04-05] MEDS ORDERED: INSU100I13 SUBQ (03:04)
[2017-04-05] MEDS ORDERED: GABA-500 PO (03:04)
== END 2017-04-04 06:29 | disposition home or self-care (01) ==
LOC: SED 03:14
DX: F10.220 Alcohol dependence with intoxication, uncomplicated (principal); Y90.8 Blood alcohol level of 240 mg/100 ml or more; T81.31XA Disruption of external operation (surgical) wound, not elsewhere classified, initial encounter; Y73.2 Prosthetic and other implants, materials and accessory gastroenterology and urology devices associated with adverse incidents; Y92.9 Unspecified place or not applicable; Y93.9 Activity, unspecified; Y99.9 Unspecified external cause status; K86.1 Other chronic pancreatitis; E11.9 Type 2 diabetes mellitus without complications; F32.9 Major depressive disorder, single episode, unspecified; F17.200 Nicotine dependence, unspecified, uncomplicated; Z79.4 Long term (current) use of insulin
CPT/HCPCS: 36415; 80053; 82075; 83690; 83735; 85025; 96361; 96374; 99284; G0480; J2405; J7030

== ENCOUNTER 2017-04-04 22:37 | Emergency (ER) | payer OTHER ==
[2017-04-04 22:41] VITALS: BP 131/86; PULSE 114; RESP 20; O2SAT 97
--- NOTE | 2017-04-05 00:32 | ED.REPORT ---
HPI-Overdose/Alcohol Toxicity Date of Service Apr 05, 2017 ED Provider: Martell Louis MD A 32 year old male with a history of alcoholism, chronic pancreatitis with a pancreatic drain, diabetes mellitus and depression presents to the ED via [employer] intoxicated. Patient is incontinent upon arrival. Patient was seen in the ED on 04/04 with similar complaints and concerns. He was discharged in good condition after refusing referral to detox. Patient is open to placement in a detox program at [facility]. Nursing Notes Stated Complaint: INTOXICATED Chief Complaint: Substance Abuse Nursing Notes Reviewed: Yes Allergies: Coded Allergies: No Known Allergies (Verified Allergy, Unknown, 04/04/17) Scheduled Gabapentin (Gabapentin) 300 Mg Capsule 300 MG PO DAILY Gabapentin (Gabapentin) 100 Mg Capsule 100 MG PO TID Insulin Glargine (Lantus U100 Insulin Vial) 100 Unit/Ml Vial 6 UNIT SUBQ HS Insulin Glargine (Lantus U100 Solostar Insulin Pen) 100 Unit/1 Ml Insuln.pen 7 UNIT SUBQ HS Pancreatin (Pancreatin) 1 Gm Powder 1 GM MC TIDWM Scheduled PRN Oxycodone (Roxicodone) 5 Mg Tablet 15 MG PO Q6H PRN PRN For Pain Trazodone (Trazodone) 50 Mg Tablet 25 MG PO HS PRN PRN For Insomnia General Time Seen by Provider: 23:30 Chief Complaint Intoxicated, alcohol Hx Obtained From: Patient Arrived By: Police Onset Occurred: Just prior to arrival Symptom Duration: Since onset Progression Since Onset: Gradually improving Pertinent Negative: Pt denies other symptoms Recent Healthcare: No recent hospitalization, Recent doctor visit Risk-Overdose/Alcohol Tox )( Suicide Risk Stratification : Substance abuse RF Statements: Risk factors reviewed Past Medical History Past Medical History Notes: Followed by Dr. 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 S/p drainage at [facility] (Dec 2016). Reports: Diabetes mellitus Reports: Depression Past Surgical History 1) 01/27/16: Procedure: Exploratory laparotomy, lysis of adhesions, drainage of intra-abdominal abscess, appendectomy, rigid proctoscopy, flexible sigmoidoscopy Surgeon: Neo Daniel M.D. 2) drain placed for infected pancreatic pseudocust at [facility] (Dec 2016) 2) Endoscopic drainage of his pancreatic psuedocyst at [facility] R hand wound repair Family History noncontributory Smoking History Current Some Day Smoker Social History Alcohol Use: In recovery Drug Use: Denies drug use, THC Other Social History: Good social support, Local resident Ambulatory Status Independent Review of Systems Unable to Obtain ROS Intoxicated Physical Exam Initial Vital Signs Vital Signs (First) Date Time Temp Pulse Resp B/P Pulse Ox O2 Delivery O2 Flow Rate FiO2 04/04/17 22:41 36.1 114 20 131/86 97 Room Air Initial VS: Reviewed, Vital signs abnormal Head / Eyes: Atraumatic, Normocephalic, PERRL Neck: Supple, Non-tender, Full range of motion Extremities: Vascular intact, Neuro intact, No swelling, No tenderness Skin: Warm, Dry, No cyanosis Alertness: Positive: Responds to pain stimuli, Responds to verb stimuli Appearance / Presentation: Positive: Intoxicated Respiratory / Chest: Atraumatic, Breath sounds NL, Breath sounds = bilat, No respiratory distress Cardiovascular: Heart rate NL, Regular rhythm, Heart sounds NL Abdomen: Atraumatic, Soft Neurologic: No motor deficits, No sensory deficits Psychiatric: Not suicidal, Not homicidal Re-Eval/Medical Decision Med Decision/Clinical Course 32-year-old with chronic alcoholism, diabetes and chronic pancreatitis with pseudocyst currently being drained percutaneously. He relapsed several days ago. He has been unable to stop on his own so came in requesting detox. He has a bed at [facility]. He will be sent there by taxi with medications for lorazepam taper, continued insulin and his present dose, and 10 days' prescription for gabapentin. He can self manage his pancreatic cyst drained. Re-Evaluation/Progress : Time of Eval: 03:00 Patient Status: Condition improved Re-Evaluation/Progress Note: Pt is informed of the open bed at [facility] that is available. He understands and agrees with the plan to follow up with [facility]. Counseled Regarding: Diagnosis, Lab results, Need for follow-up, When/why to return to ED Discharge & Departure Impression: Primary Impression: Alcohol dependence Substance use status: uncomplicated Qualified Code: F10.20 - Alcohol dependence, uncomplicated Additional Impression: Pancreatic pseudocyst )( Condition at Discharge: No danger to self, No danger to others, No suicidal ideation, No homicidal ideation, Clear for alcohol rehab Disposition: Home Discharge Condition All VS Reviewed: Yes Condition: Improved Patient Instructions: Alcohol Withdrawal (ED) Additional Instructions: 1. Alcohol withdrawal: Go directly to [facility] for detox. Lorazepam ( Ativan) taper, see instructions. 2. Diabetes: Lantus 7 units every night at bedtime. 3. Pancreatic pseudocyst: Patient will self manage his drain. 4. Gabapentin 100 mg by mouth 3 times a day Referrals: Gertrudis August DO (PCP) Roryibe Attestation Portions of this note were transcribed by Tony Cuello. I, Dr. Louis personally performed the history, physical exam and medical decision-making; I reviewed and confirmed the accuracy of the information in the transcribed note. Signed by: Keisha Gonzales, 04/05/17 0307. copies to: Gertrudis August Howard L MD Apr 05, 2017 00:32 TONY CUELLO Apr 05, 2017 01:23
[2017-04-05 01:58] VITALS: BP 119/81; PULSE 107; RESP 20; O2SAT 95
[2017-04-05] MEDS ORDERED: Insulin GLARgine 100 Unit/mL Syringe SUBQ ONE (02:35)
[2017-04-05] MEDS ORDERED: Insulin Human REGular-Omnicell 100 Unit/mL SUBQ ONE (02:35)
[2017-04-05] MEDS ORDERED: 0.9% Sodium Chloride 1,000 ML IV ONE (03:00)
[2017-04-05] MEDS ORDERED: INSU100I13 SUBQ (03:04)
[2017-04-05] MEDS ORDERED: GABA-500 PO (03:04)
[2017-04-05] MEDS ORDERED: _LORazepam 2 MG Tablet PO SCH (03:05)
[2017-04-05 03:22] VITALS: BP 120/75; PULSE 100; RESP 20; O2SAT 97
== END 2017-04-05 03:28 | disposition home or self-care (01) ==
LOC: SED 22:37
DX: F10.20 Alcohol dependence, uncomplicated (principal); K86.3 Pseudocyst of pancreas; E11.9 Type 2 diabetes mellitus without complications; F17.200 Nicotine dependence, unspecified, uncomplicated; Z79.4 Long term (current) use of insulin
CPT/HCPCS: 81002; 82075; 82948; 96372; 99284; J1815